=== PATIENT | female | born 1990 | race Caucasian/White ===

== ENCOUNTER → 2017-11-01 11:32 | Outpatient (CLI) | payer MEDICAID, SELFPAY ==
[2017-11-01 12:28] LABS: Absolute Lymphocyte Count 2.12 X10^3/ul (0.83-4.51); Absolute Neutrophil Count 7.5 X10^3/uL (2.0-7.7); Basophil# 0.02 X10^3/uL; Basophil% 0.2 % (0-1); Eosinophil# 0.18 X10^3/uL; Eosinophils% 1.8 % (0-5); Hematocrit 37.1 % (37-47); Hemoglobin 12.4 g/dl (12.0-15.0); Lymphocyte # 2.12 X10^3/ul (4.0); Lymphocyte % 20.9 % (19-41); Mean Corp Hgb Conc 33.4 g/gl (32-36); Mean Corpuscular Volume 86.7 fL (81-99); Mean Platelet Vol. 8.8 fl (6.2-12.0); Monocyte# 0.36 X10^3/uL; Monocyte% 3.6 % (0-10); Neutrophil # 7.45 X10^3/uL (2.7-7.7); Neutrophil % 73.4 % (47-70); Platelet Count 309 K/mm3 (150-450); RBC Distribution Width CV 14.2 % (11.6-14.6); RBC Distribution Width SD 44.4 fl (35.1-43.9); Red Blood Count 4.28 M/mm3 (4.2-5.4); White Blood Count 10.1 K/mm3 (4.4-11.0)
[2017-11-01 12:29] LABS: POSITIVE COUNT NO; POSITIVE DIFFERENTIAL NO; POSITIVE MORPHOLOGY NO
== END ==
PROVIDERS: Visit Provider Obstetrics & Gynecology
DX: O28.1 Abnormal biochemical finding on antenatal screening of mother (principal); Z3A.00 Weeks of gestation of pregnancy not specified
CPT/HCPCS: 36415; 85025

== ENCOUNTER → 2017-11-20 12:39 | Outpatient (CLI) | payer MEDICAID, SELFPAY ==
[2017-11-20 13:59] LABS: Anion Gap 9 (5-15); BUN 5 mg/dL (7-18); Calcium,Total 8.5 mg/dL (8.5-10.1); Chloride 104 mmol/L (98-107); Creatinine, Serum 0.55 mg/dL (0.55-1.02); EST Glomerular Filtration Rate 141 mL/min (>60); Est Glom Filt Rate - Afr Amer 170 mL/min (>60); Glucose 103 mg/dL (74-106); Potassium 3.5 mmol/L (3.5-5.1); Sodium Level 136 mmol/L (136-145); T4 Free Direct 0.74 ng/dL (0.76-1.46); Thyroid Stim Hormone (TSH) 1.56 uIU/mL (0.358-3.74)
[2017-11-20 14:21] LABS: Vitamin B12 668 pg/mL (211-911); Vitamin D,25 Hydroxy 19.8 ng/mL (19.95-100.01)
--- NOTE | 2017-11-20 15:04 | US_ITS ---
STUDY: SECOND AND THIRD TRIMESTER OBSTETRICAL ULTRASOUND REASON FOR EXAM: Female, 27 years old. Routine survey. LMP: July 05, 2017. TECHNIQUE: Transabdominal and Transvaginal PRIOR ULTRASOUND: None. FINDINGS: There is a single intrauterine fetus. The fetus is in a breech presentation. There is demonstrated cardiac activity with a heart rate of 142 bpm. There is a normal amniotic fluid volume. The largest amniotic fluid pocket measures 4.3 cm. The amniotic fluid index (TAMRA) is 13.8 cm. The placenta is posterior in location and is not low lying. There are Grade 1 placental changes. The cervix measures 3.8 cm in length. The adnexal regions are not visualized. BIOMETRY: BPD: 4.67 cm: 20 weeks, 1 days HC: 17.75 cm: 20 weeks, 2 days AC: 15.96 cm: 21 weeks, 1 days FL: 3.43 cm: 20 weeks, 6 days CI: 74% FL/BPD: 73% FL/HC: FL/AC: 21% HC/AC: 1.1 age by current US: 20 weeks, 5 days. MAGI by current US: April 04, 2018. Estimated weight: 381 grams, +/- 56 grams, 95 %. Age by LMP: 19 weeks, 5 days. MAGI by LMP: April 11, 2015. ANATOMY: Gender: Male Cranium: Normal lateral ventricles. Normal choroid plexus. Normal cerebellum. Normal cisterna magna. Normal face, nose and lips. Chest: Normal 4-chamber heart. Abdomen/Pelvis: Normal diaphragm. Normal stomach. Normal abdominal wall. Normal cord insertion. Normal 3 vessel cord. Normal kidneys. Normal bladder. Spine: Normal cervical spine. Normal thoracic spine. Normal lumbar spine. Normal sacrum. Extremities: Normal bilateral upper extremities. Normal bilateral lower extremities. US/OB Anatomy Scan IMPRESSION: Single live intrauterine gestation with a mean gestational age of 20 weeks and 5 days. Electronically Signed: Naun Peters MD at 11:20 EST Tel [phone], Service support ,
== END ==
PROVIDERS: Family Provider Internal Medicine; PCP Internal Medicine; Visit Provider Obstetrics & Gynecology
DX: O99.340 Other mental disorders complicating pregnancy, unspecified trimester (principal); F32.9 Major depressive disorder, single episode, unspecified; F41.9 Anxiety disorder, unspecified; Z3A.00 Weeks of gestation of pregnancy not specified
CPT/HCPCS: 36415; 76805; 80048; 82306; 82607; 84439; 84443

== ENCOUNTER 2017-11-21 09:00 | Outpatient (RCR) | payer MEDICAID, SELFPAY ==
--- NOTE | 2017-11-21 12:17 | BH.SGPN ---
Service Group Progress Note - Session Psychotherapy Session #1 Date Open:: 11/21/17 Time Started:: 09:04 Time Stopped:: 09:58 Targeted Problem #:: 1 Type of Group:: Process - 5 Participants Goal of Group:: The goal of today's group was to check-in with client's mood, stressors, and positives, review homework, and to introduce the topic of the day. Client Response/Progress/Benefit:: Client was new to the program and counselor introduced and explained dynamics of how process group would run. Client was willing to participate and spoke about what brought her to group was that her uncle completed suicide and her grandmother gave up after that, stopped taking care of herself, and is now on hospice. Client shared how she has been struggling leaving her house, wants to sleep all day, and lacks motivation. Client indicated her emotion as, nervous but now Im feeling kind of happy. Client benefitted from group by receiving support from peers. No progress noted due to it being clients first day in program. Continued treatment necessary to decrease depressive symptoms and increase daily functioning. Eye Contact:: Good Motor Activity:: Appropriate Appearance:: Casual Speech:: Appropriate Mood:: Euthymic, Anxious Affect:: Full Thoughts:: Linear, Logical, No evidence of hallucinations/delusions noted Staff Interventions:: Therapist used open-ended questions to elicit information about client's current stressors and mood. Therapist was supportive by using active listening and reflection. Psychotherapy Session #3 Date Open:: 11/21/17 Time Started:: 11:10 Time Stopped:: 12:10 Targeted Problem #:: 1 Type of Group:: Functional Skills Development - 6 Participants Goal of Group:: To identify what stressors have control over and what stressors have no control over. Client Response/Progress/Benefit:: Client was alert, attentive, and willing to engage. Client was an active participant in group today. Client participated in group activity designed to elicit stress from client and determine how client manages stressful situations. Client collaborated with peers to successfully complete group activity and was able to identify her current coping strategies to manage stress as, sleeping to avoid everything but the stressor is still there. Client stated, It can be scary to start over because people always tell us where we should be instead of being there when we needed them. Client benefitted from identifying stressors and ways to reduce their impact as well as identifying her need to, alter my time management and avoid toxic people. Progress noted in clients awareness and insight of how her current management skills are impacting her. Continued treatment necessary to reduce depressive symptoms and increase daily functioning. Eye Contact:: Good Motor Activity:: Appropriate Appearance:: Casual Speech:: Appropriate Mood:: Euthymic Affect:: Full Thoughts:: Linear, Logical, No evidence of hallucinations/delusions noted Staff Interventions:: Therapist facilitated discussion about control versus no control and helped group members connect the concept to stressors. Therapist led an activity in which group members differentiated which stressors are in their control and which are out of their control. Therapist processed with group if the stressors were in the right category. Therapist led discussion about importance of putting forth more energy on those stressors they can control.
--- NOTE | 2017-11-21 14:51 | BH.SGPN_ITS ---
Service Group Progress Note - Session Psychotherapy Session #2 Date Open:: 11/21/17 Time Started:: 10:05 Time Stopped:: 10:57 Targeted Problem #:: 1 Type of Group:: Illness Management Goal of Group:: To increase understanding of what stress is, identify current life stressors, and connect impact stressors have on mental health. Client Response/Progress/Benefit:: Client contributed positively discussion and listened attentively to others. Client appeared to connect with others comments about the impact ones negative thoughts can have on stress. Shared about how overwhelmed and stressed can negatively impact ones body and mental health. Identified her current stressors to include: Loss of her uncle recently by suicide, grandma's declining health, taking care of her young child , being , money issues, try to get a job while , no motivation, depression, and her medications are no longer working. Client identified depression to be most impactful stressor on her currently because it is hard to do much when feeling sad. Client seemed to benefit from increasing awareness of her current stressors as well as identifying how her typical reaction to stress can be negatively impactful on her. Eye Contact:: Good Motor Activity:: Appropriate Appearance:: Casual Speech:: Appropriate Mood:: Euthymic, Anxious Affect:: Constricted Thoughts:: Linear, Logical, No evidence of hallucinations/delusions noted Staff Interventions:: Therapist facilitated discussion about stress. Therapist facilitated an activity in which group members were asked to identify various stressors they have in their life currently. Therapist instructed group members to indicate if certain stressors were larger than others. Therapist led processing of each members stress jar and helped them connect impact the stress has on their mental health.
--- NOTE | 2017-11-23 11:37 | BH.SGPN ---
Service Group Progress Note - Session Psychotherapy Session #1 Date Open:: 11/23/17 - 5 participants Time Started:: 09:07 Time Stopped:: 10:10 Targeted Problem #:: 1 Type of Group:: Process Goal of Group:: The goal of today's group was to check-in with client's mood, stressors, and positives, review homework and introduce topic for the day. Client Response/Progress/Benefit:: Client responded well to session, active participant. Client reports feeling irritable today as client had bad dreams last night that I can't shake. Client reported she isolated and laid at home yesterday as client was feeling depressed and had low motivation. Client shared she tends to focus on the negatives which reaffirms negative thoughts and contributes to isolation. With therapist elicitation, client recognized positives from yesterday such as making dinner and going to the library with her daughter. Client shared she can try to improve her mood today by taking her daughter to the library again. Client stated, I know that will be good for her and for me. Client appeared to benefit from identifying positives and creating a plan to reduce isolation today. Client progressing as shown by her insight to warning signs and maintenance cycles, but can continue to benefit from implementing healthy coping skills to promote socialization. Eye Contact:: Good Motor Activity:: Appropriate Appearance:: Disheveled Speech:: Appropriate Mood:: Dysthymic Affect:: Congruent Thoughts:: Linear, No evidence of hallucinations/delusions noted Staff Interventions:: Therapist used open-ended questions to elicit information about client's current stressors and mood state. Therapist was supportive by using active listening and reflection.
--- NOTE | 2017-11-24 11:53 | BH.NA ---
Physical Data - Vital Signs Pulse Rate: 84 Respiratory Rate: 14 Blood Pressure: 109/63 - Height/Weight Height: 1.6 m Nutritional History - Appetite Nutritional Instructions:: If client shows signs of a swallowing problem, weight change of 10 pounds or more in the last month, or is on a diabetic diet, the physician will review and request a dietitian consult, as appropriate. All unintentional weight loss will be referred to the physician for decision on need for dietitian consult. Have you noticed a change in your eating habits lately?: No Functional Assessment - Sleep Pattern Describe any problems with sleeping: She notes that she has frequent nightmares that adversely effect her sleep. - Activities Motor Activity:: Functional Sensory/Communication Assess - Hearing Problems Do you have any hearing problems?: Adequate - Communication Problems Do you have difficulty understanding what people are saying?: No Do you have trouble putting your thoughts into words or expressing what you want to say?: No Do people ever have trouble understanding what you say?: No What is your primary language?: Persian Learning Assessment - Learning Barriers Learning Barriers:: Ready to learn Medical Problems/History - Female Reproductive Do you think you may be ?: Yes - 21 weeks Number of pregnancies:: 2 Number of children:: 1 Have you reached menopause?: No Do you have any history of breast disease?: No - Family History Family History: Family History (Last Updated 11/20/17 @ 09:57 by Geovanna Velazquez) Mother Endometrial cyst of ovary Grandmother Anxiety and depression Father Anxiety and depression Cancer Uncle Anxiety and depression Grandmother Cancer Diabetes Substance Abuse - Substance Abuse Please describe substance abuse in the last 30 days:: Client notes that she was using ETOH daily (1-2 drinks) prior to her currently , but has since quit. She denies a tobacco and illicit substance use history. Intake of 1-2 caffienated beverages daily. Mental Status Summary - Mental Status Significant Findings/Observations on Appearance and Mood:: Client is A&Ox4, makes good eye contact, and is cooperative with interview. She has appropriate hygiene and is casually dressed and groomed. Speech is clear, and of normal rate and volume. Mild depression. Appropriate and full affect. Logical associations. Normal process. She denies SI, HI, and hallucinations. No symptoms of delusions. Critical judgement and true insight. Suicide Assessment - Suicidal Ideation Are you currently or have you been suicidal in the past?: No Suicidal Intentional Rating Scale (SIRS): No suicidal thoughts (past or present) Physician Notification: If Active suicidal thoughts/Will not contract for safety is checked, contact physician and document in the Physician Notification section below. Assault History/Potential - History of Assault Do you have a history of assaulting someone?: No Physician Notification: If yes, notify physician and document notification date and time below. Fall Risk Assessment - Age Age: Less than 60 - Mental Status Mental Status: Willing & able to ask for assistance when needed - Physical Status Physical Status: No problems - Impairments Impairments: None - Elimination Elimination: Continent AND independent - Gait or Balance Gait or Balance: Walks independently - Hx of Falls History of falls in the past 6 months: No known history - Medications/Substances Medications/substances used within the past 24 hours or ordered to administer: None of the medications/substances list above - Total Score Total Points:: 0 RN Summary of Impressions - Impressions Recommendations: Include psychiatric and medical issues, treatment planning recommendations, and discharge planning needs. Impressions: Psychiatric Issues: depression - Level of Care How do the client's current symptoms and functional deficits support need for this level of care?: Client notes that she has been having increased depressive symptoms since October 2017, following her uncle's completion of suicide. She notes that she has been sleeping more as an avoidance tactic, increased crying, and lack of motivation. She has found counseling and medication ineffective. She is greifing the loss of her uncle and her grandmother has just entered Hospice care. As she is , she is feeling especially overwhelmed, and wishes to deal with all of the stressors in a way that is most healthy for her and her baby.
--- NOTE | 2017-11-24 12:19 | BH.SGPN_ITS ---
Service Group Progress Note - Session Psychotherapy Session #1 Date Open:: 11/21/17 Time Started:: 09:04 Time Stopped:: 09:58 Targeted Problem #:: 1 Type of Group:: Process - 5 Participants Goal of Group:: The goal of today's group was to check-in with client's mood, stressors, and positives, review homework, and to introduce the topic of the day. Client Response/Progress/Benefit:: Client was new to the program and counselor introduced and explained dynamics of how process group would run. Client was willing to participate and spoke about what brought her to group was that her uncle completed suicide and her grandmother gave up after that, stopped taking care of herself, and is now on hospice. Client shared how she has been struggling leaving her house, wants to sleep all day, and lacks motivation. Client indicated her emotion as, ?nervous but now I?m feeling kind of happy.? Client benefitted from group by receiving support from peers. No progress noted due to it being client?s first day in program. Continued treatment necessary to decrease depressive symptoms and increase daily functioning. Eye Contact:: Good Motor Activity:: Appropriate Appearance:: Casual Speech:: Appropriate Mood:: Euthymic, Anxious Affect:: Full Thoughts:: Linear, Logical, No evidence of hallucinations/delusions noted Staff Interventions:: Therapist used open-ended questions to elicit information about client's current stressors and mood. Therapist was supportive by using active listening and reflection. Psychotherapy Session #3 Date Open:: 11/21/17 Time Started:: 11:10 Time Stopped:: 12:10 Targeted Problem #:: 1 Type of Group:: Functional Skills Development - 6 Participants Goal of Group:: To identify what stressors have control over and what stressors have no control over. Client Response/Progress/Benefit:: Client was alert, attentive, and willing to engage. Client was an active participant in group today. Client participated in group activity designed to elicit stress from client and determine how client manages stressful situations. Client collaborated with peers to successfully complete group activity and was able to identify her current coping strategies to manage stress as, ?sleeping to avoid everything but the stressor is still there.? Client stated, ?It can be scary to start over because people always tell us where we should be instead of being there when we needed them.? Client benefitted from identifying stressors and ways to reduce their impact as well as identifying her need to, ?alter my time management and avoid toxic people.? Progress noted in client?s awareness and insight of how her current management skills are impacting her. Continued treatment necessary to reduce depressive symptoms and increase daily functioning. Eye Contact:: Good Motor Activity:: Appropriate Appearance:: Casual Speech:: Appropriate Mood:: Euthymic Affect:: Full Thoughts:: Linear, Logical, No evidence of hallucinations/delusions noted Staff Interventions:: Therapist facilitated discussion about control versus no control and helped group members connect the concept to stressors. Therapist led an activity in which group members differentiated which stressors are in their control and which are out of their control. Therapist processed with group if the stressors were in the right category. Therapist led discussion about importance of putting forth more energy on those stressors they can control.
--- NOTE | 2017-11-24 12:46 | PCM.HP.BLA ---
History and Physical Identifying information Patient is a 27-year-old single female 20 weeks who presents to the [facility] with chief complaint of I need to be more proactive with depression. I am . History has been obtained per interview with patient, discussion with staff, review of chart and records. Case discussed with treatment team. History of present illness Patient is a 27-year-old single female who presents to the [facility] for evaluation and treatment of depression and anxiety. She reports a long-standing history of depression since her teenage years. Her symptoms have been worse since October after her uncle completed suicide. She had been on Celexa 20 mg daily since August 2017 and it was increased to 40 mg daily in October. Her depression has again worsened in the last week and a half due to her grandmother's health decline and her grandmother being placed in hospice. Her primary care physician consulted with her FOUR SLIDE MACHINE OPERATOR and has recommended reduction of Celexa 20 mg and start of Effexor 37.5 mg. Patient reports her current is unplanned. She is 21 weeks . EDC April 11. She reports she is excepting now of the . Baby's father is not involved. She endorses depression with a dark mood anhedonia, decreased energy, difficulty concentrating. She has increased urges to sleep and sleeping 8-10 hours per night and taking 2-3 hour naps per day. She has ruminative anxiety about anything I cannot control. She denies panic attack she denies obsessions or compulsions. Appetite is normal. She has a history of restricted eating for 2-3 years in high school at which time she lost weight. She is 5 foot 3. Her lowest weight in high school was 94 pounds. Her current normal non adult weight is 135-145 pounds. She reports that her eating is currently normal. She denies suicidal or homicidal ideation. She denies symptoms consistent with psychosis. She denies symptoms consistent with asher or bipolar disorder. Past psychiatric history Patient was diagnosed with depression at age 14. She had depression in 2013 after the of her first daughter. She participated in a [facility] study for 1 year for depression and bipolar disorder. It was determined that she had unipolar depression. She took Zoloft for 1 year but notes he quit working in April 2017. She took Remeron as part of the trial but notes that it made her tired. Does not currently have a psychiatrist or counselor. Substance use history Reports consuming 1-2 drinks per day prior to no alcohol since . Denies smoking cigarettes or use of illicit drugs. Past medical history EDC April 11, 2018. Genital herpes Denies seizure or head injury Vitamin D deficiency. Allergies dicloxacillin Current medications Celexa 20 mg daily. Will start Effexor X are 37.5 mg daily on Monday. At the scene Protonix Vitamin D vitamins Family medical psychiatric history Maternal grandmother has depression and dementia Father has depression Develop mental social history Patient was born in [place] and lived [place] until age 8 when she moved to [place]. Parents when she was age 5. She has a biologic younger brother who lives with her father. She has 2 half sisters that live with their mother. She lives with her mother as a only child. She denies physical abuse growing up. She obtained a bachelor's in biology in 2013 from [employer]. 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 Has a 3-year-old daughter. Father is not involved. Lives with mother grandmother and 3-year-old daughter. Currently . Baby's father not involved. Legal history Age 18 charged with [employer] for vandalism of a car after she threw mashed potatoes on the car. mental status exam This is a 27-year-old female who appears her stated age. She is alert and oriented in no acute distress. Casually dressed and groomed. Ambulatory with normal gait and station. Appropriate hygiene. Cooperative with the interview. Good eye contact. No psychomotor agitation or retardation. Mood depressed. Affect congruent. Speech clear and of regular rate and volume. Language fluent. Thought process organized. Associations logical. Thought content significant for ruminative anxiety and themes of depression and grief. No suicidal or homicidal ideation related or detected. No evidence of psychosis related to detected. Immediate recent and remote memory grossly intact. Attention and concentration are good. Estimated intelligence and fund of knowledge average. Judgment and insight are fair to good. Labs and testing Recent vitamin D in 19 Further lab work will be obtained as needed Diagnosis Major depressive disorder recurrent moderate Anxiety unspecified Remote history disordered eating 21 weeks -EDC April 11, 2018 Plan Admit to [facility] as the structured setting is necessary to maintain gains and prevent decompensation. Risks benefits alternatives of medications discussed with patient. Patient acknowledges understanding. She will reduce Celexa to 20 mg daily and start Effexor 37.5 mg daily -discussed risks of antidepressant use in patient acknowledges understanding. She agrees to continue consultation with [employer]IDE MACHINE OPERATOR regarding use of antidepressant medications. Continue vitamin D supplement. Encouraged to establish with outpatient psychiatric providers for when IOP complete. Patient acknowledges understanding and is in agreement with plan. She feels able to maintain safety. She agrees to seek help or emergency care feeling unsafe to self or others.
--- NOTE | 2017-11-24 13:00 | HP.PCM_ITS ---
History and Physical Identifying information Patient is a 27-year-old single female 20 weeks who presents to the [facility] with chief complaint of I need to be more proactive with depression. I am . History has been obtained per interview with patient, discussion with staff, review of chart and records. Case discussed with treatment team. History of present illness Patient is a 27-year-old single female who presents to the [facility] for evaluation and treatment of depression and anxiety. She reports a long- standing history of depression since her teenage years. Her symptoms have been worse since October after her uncle completed suicide. She had been on Celexa 20 mg daily since August 2017 and it was increased to 40 mg daily in October. Her depression has again worsened in the last week and a half due to her grandmother's health decline and her grandmother being placed in hospice. Her primary care physician consulted with her [facility] [facility] and has recommended reduction of Celexa 20 mg and start of Effexor 37.5 mg. Patient reports her current is unplanned. She is 21 weeks . EDC April 11. She reports she is excepting now of the . Baby's father is not involved. She endorses depression with a dark mood anhedonia, decreased energy, difficulty concentrating. She has increased urges to sleep and sleeping 8-10 hours per night and taking 2-3 hour naps per day. She has ruminative anxiety about anything I cannot control. She denies panic attack she denies obsessions or compulsions. Appetite is normal. She has a history of restricted eating for 2- 3 years in high school at which time she lost weight. She is 5 foot 3. Her lowest weight in high school was 94 pounds. Her current normal non adult weight is 135-145 pounds. She reports that her eating is currently normal. She denies suicidal or homicidal ideation. She denies symptoms consistent with psychosis. She denies symptoms consistent with asher or bipolar disorder. Past psychiatric history Patient was diagnosed with depression at age 14. She had depression in 2013 after the of her first daughter. She participated in a [facility] study for 1 year for depression and bipolar disorder. It was determined that she had unipolar depression. She took Zoloft for 1 year but notes he quit working in April 2017. She took Remeron as part of the trial but notes that it made her tired. Does not currently have a psychiatrist or counselor. Substance use history Reports consuming 1-2 drinks per day prior to no alcohol since . Denies smoking cigarettes or use of illicit drugs. Past medical history EDC April 11, 2018. Genital herpes Denies seizure or head injury Vitamin D deficiency. Allergies dicloxacillin Current medications Celexa 20 mg daily. Will start Effexor X are 37.5 mg daily on Monday. At the scene Protonix Vitamin D vitamins Family medical psychiatric history Maternal grandmother has depression and dementia Father has depression Develop mental social history Patient was born in [place] and lived in [place] in [place] until age 8 when she moved to [place]. Parents when she was age 5. She has a biologic younger brother who lives with her father. She has 2 half sisters that live with their mother. She lives with her mother as a only child. She denies physical abuse growing up. She obtained a bachelor's in biology in 2013 from [employer]. 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 Has a 3-year-old daughter. Father is not involved. Lives with mother grandmother and 3-year-old daughter. Currently . Baby's father not involved. Legal history Age 18 charged with [employer] for vandalism of a car after she threw mashed potatoes on the car. mental status exam This is a 27-year-old female who appears her stated age. She is alert and oriented in no acute distress. Casually dressed and groomed. Ambulatory with normal gait and station. Appropriate hygiene. Cooperative with the interview. Good eye contact. No psychomotor agitation or retardation. Mood depressed. Affect congruent. Speech clear and of regular rate and volume. Language fluent. Thought process organized. Associations logical. Thought content significant for ruminative anxiety and themes of depression and grief. No suicidal or homicidal ideation related or detected. No evidence of psychosis related to detected. Immediate recent and remote memory grossly intact. Attention and concentration are good. Estimated intelligence and fund of knowledge average. Judgment and insight are fair to good. Labs and testing Recent vitamin D in 19 Further lab work will be obtained as needed Diagnosis Major depressive disorder recurrent moderate Anxiety unspecified Remote history disordered eating 21 weeks -EDC April 11, 2018 Plan Admit to [facility] as the structured setting is necessary to maintain gains and prevent decompensation. Risks benefits alternatives of medications discussed with patient. Patient acknowledges understanding. She will reduce Celexa to 20 mg daily and start Effexor 37.5 mg daily -discussed risks of antidepressant use in patient acknowledges understanding. She agrees to continue consultation with [employer]OPER regarding use of antidepressant medications. Continue vitamin D supplement. Encouraged to establish with outpatient psychiatric providers for when IOP complete. Patient acknowledges understanding and is in agreement with plan. She feels able to maintain safety. She agrees to seek help or emergency care feeling unsafe to self or others.
--- NOTE | 2017-11-24 13:00 | BH.DR.ITP ---
Initial Treatment Plan - Patient Information Visit Information: ADMISSION DATE: EXPECTED LOS: 4-6 weeks Diagnoses:: Major depressive disorder recurrent moderate F 33.1 - Problems/Symptoms Problem #1:: Depression Symptom:: Sad mood, anhedonia, difficulty concentrating, decreased energy, increased sleep Problem #2:: Anxiety Symptom:: Rumination
--- NOTE | 2017-11-24 14:45 | BH.SGPN ---
Service Group Progress Note - Session Psychotherapy Session #2 Date Open:: 11/24/17 Time Started:: 10:15 Time Stopped:: 11:10 Targeted Problem #:: 1 Type of Group:: Illness Management - 5 group members Goal of Group:: The goal of group was to increase understanding of goals and goal setting and practice a method of goal setting. Client Response/Progress/Benefit:: Client contributed to discussion and listened attentively to others. Client connected with others comments about the quote. She reported goals are beneficial because it gives you a purpose and direction. Recognizes when she does not set goals she tends to stay stuck. Seemed to benefit from rehearsing settings smart goals during activity. Able to connect the importance of being able to set realistic attainable goals as well as recognizing when he might need to reevaluate your goal to ensure that it is attainable. Eye Contact:: Good Motor Activity:: Appropriate Appearance:: Disheveled Speech:: Appropriate Mood:: Anxious, Dysthymic Affect:: Congruent Thoughts:: Linear, Logical, No evidence of hallucinations/delusions noted Staff Interventions:: Therapist facilitated group discussion about goals and goal setting. Therapist taught group the acronym SMART (Specific, Measurable, Achievable, Realistic, Timely) as a tool to help with goal setting. Therapist led the group in an activity to be used as a method of practicing goal setting. Therapist guided the group through the SMART acronym as group was participating in activity. Therapist assisted group members with connecting the importance of making small, realistic goals.
--- NOTE | 2017-11-24 15:00 | BH.SGPN ---
Service Group Progress Note - Session Psychotherapy Session #1 Date Open:: 11/24/17 Time Started:: 09:05 Time Stopped:: 10:00 Type of Group:: Process - 6 group members Goal of Group:: The goal of today's group was to check-in with client's mood, stressors, and positives, review homework and introduce topic for the day. Client Response/Progress/Benefit:: Pt was an active participant in group discussion. Emotion for today is pre-occuppied Shared with the group some positives yesterday which included making in through shopping without crying. States that she has been so overwhelmed with stressors lately it has been difficult to manage crying spells. Discussed that her GMA's medical issues are worsening and Hospive was in her house today while she is in group. Tearful at times. Group provided support. Limited progress noted however some mood improvement as evidence by decrease in crying spells. Continued treatment to maintain safety, stablize mood, and prevent further decompensation. Eye Contact:: Good Motor Activity:: Appropriate Appearance:: Disheveled Speech:: Appropriate Mood:: Anxious, Depressed Affect:: Congruent Thoughts:: Linear, Logical, No evidence of hallucinations/delusions noted Staff Interventions:: Therapist used open-ended questions to elicit information about client's current stressors and mood state. Therapist was supportive by using active listening and reflection.
--- NOTE | 2017-11-27 15:19 | BH.SGPN ---
Service Group Progress Note - Session Psychotherapy Session #1 Date Open:: 18 - 7 group members Time Started:: 09:05 Time Stopped:: 10:15 Targeted Problem #:: 1 Type of Group:: Process Goal of Group:: The goal of today's group was to check-in with clients and review homework from previous group session. Client Response/Progress/Benefit:: Client responded well to session, providing supportive statements to peers. Client reports feeling content today as client shared I don't feel upset, but I'm not happy either. Client stated her weekend was a mixture of positives and negatives. Client shared she continues to grieve the loss of her uncle, but reported she had a good time with family as we talked about the good times. Client reported her daughter helps client overcome challenging moments and brings a source of abraham to client's life. Client appeared to benefit from reflecting on positive ways she coped with grief over the weekend. Client progressing as shown by her report of generalization of healthy coping skills, but can continue to benefit from processing complex emotions. Eye Contact:: Good Motor Activity:: Appropriate Appearance:: Disheveled Speech:: Appropriate Mood:: Dysthymic Affect:: Constricted Thoughts:: Linear, No evidence of hallucinations/delusions noted Staff Interventions:: Therapist inquired about each group member?s previous night and current mood state. Therapist reviewed the group member?s homework from previous group session with the group, asking open ended questions to get more information
--- NOTE | 2017-11-28 12:23 | BH.MDN ---
Multi-Disciplinary Note - Note 30-min Individual Date: 11/28/17
--- NOTE | 2017-11-28 12:34 | BH.SGPN ---
Service Group Progress Note - Session Psychotherapy Session #1 Date Open:: 11/28/17 Time Started:: 09:08 Time Stopped:: 10:00 Targeted Problem #:: 1 Type of Group:: Process - 7 Participants Goal of Group:: The goal of today's group was to check-in with client's mood, stressors, and positives, review homework, and to introduce the topic of the day. Client Response/Progress/Benefit:: Client entered session alert, attentive, and willing to engage. Client shared how yesterday was a good day and shared how she was feeling overwhelmed with her grandmother and coming to the conclusion that, Im the most important person in my life. I need to take care of me. Client indicated her emotion as hopeful and benefitted from receiving support from peers. Continued treatment necessary to decrease depressive symptoms. Eye Contact:: Good Motor Activity:: Appropriate Appearance:: Casual Speech:: Appropriate Mood:: Euthymic Affect:: Full Thoughts:: Linear, Logical, No evidence of hallucinations/delusions noted Staff Interventions:: Therapist used open-ended questions to elicit information about client's current stressors and mood. Therapist was supportive by using active listening and reflection. Psychotherapy Session #3 Date Open:: 11/28/17 Time Started:: 11:15 Time Stopped:: 12:05 Targeted Problem #:: 1 Type of Group:: Functional Skills Development - 9 Participants Goal of Group:: To identify ways of defeating cognitive distortions and rehearse defeating the identified cognitive distortion. Client Response/Progress/Benefit:: Client was again alert, attentive, and willing to engage. Client participated in small group activity in which she worked with peers and practiced reframing negative thoughts with more positive thoughts. Client was able to reframe her own negative thought of, its my fault my daughter throws a tantrum. She reports that these thoughts make her feel, guilty and irritable, and identifies the cognitive distortions that are associated with this thinking as, personalization and disqualifying the positives. Clients positive reframe for this is, Shes 3 years old and she will do this and it isnt my fault. Client benefitted from the discussion of cognitive distortions. Progress noted in clients ability to identify cognitive distortions. Continued treatment necessary to reduce depressive symptoms. Eye Contact:: Good Motor Activity:: Appropriate Appearance:: Casual Speech:: Appropriate Mood:: Euthymic Affect:: Full Thoughts:: Linear, Logical, No evidence of hallucinations/delusions noted Staff Interventions:: Therapist provided group members with a handout to use as an aid when trying to defeat their unhelpful thinking. Therapist provided support by clarifying activities and providing feedback. Therapist facilitated group in the role playing of defeating cognitive distortions.
--- NOTE | 2017-11-28 16:01 | BH.PSA ---
Development & Family of Origin - Family History Family History: Family History (Last Reviewed 02/02/18 @ 13:49 by Iqra Sosa) Mother Endometrial cyst of ovary Grandmother Anxiety and depression Father Anxiety and depression Cancer Uncle Anxiety and depression Grandmother Cancer Diabetes
--- NOTE | 2017-11-28 16:06 | BH.SGPN ---
Service Group Progress Note - Session Psychotherapy Session #2 Date Open:: 11/28/17 - group members Time Started:: 10:11 Time Stopped:: 11:10 Targeted Problem #:: 1 Type of Group:: Illness Management Goal of Group:: To increase understanding of cognitive distortions, identify examples of when have had unhelpful thinking, and increase awareness of the impact cognitive distortions have on mental health. Client Response/Progress/Benefit:: Client responded well to session, active participant, providing supportive statements to peers. Client connected with the quote, stating we can either make something positive or negative with our thoughts. Client helped group process negative automatic thoughts and the different types of cognitive distortions while providing insight to how ones thoughts, emotions, and behaviors are interconnected. Client identified different types of cognitive distortions that she uses such as shoulding personalizing, and mental filtering. Client stated, Cathy been getting better with not personalizing as much especially with my daughter. Client appeared to benefit from increasing awareness of cognitive distortions and connecting how the distortions impact overall mental well-being. Client seems to be progressing as shown by her report of increased success with challenging negative thoughts, but can continue to benefit from daily implementation. Eye Contact:: Good Motor Activity:: Appropriate Appearance:: Disheveled Speech:: Appropriate Mood:: Euthymic, Depressed Affect:: Full Thoughts:: Linear, No evidence of hallucinations/delusions noted Staff Interventions:: Therapist utilized a quote as a tool to introduce topic of the day. Therapist provided group members with a handout that listed ten cognitive distortions with examples. Therapist facilitated group discussion about cognitive distortions. Therapist led group members in an activity to help them understand the impact cognitive distortions can have on emotions and behavior. Therapist provided support by using active listening and providing feedback.
--- NOTE | 2017-11-29 12:15 | BH.SGPN_ITS ---
Service Group Progress Note - Session Psychotherapy Session #2 Date Open:: 11/28/17 - group members Time Started:: 10:11 Time Stopped:: 11:10 Targeted Problem #:: 1 Type of Group:: Illness Management Goal of Group:: To increase understanding of cognitive distortions, identify examples of when have had unhelpful thinking, and increase awareness of the impact cognitive distortions have on mental health. Client Response/Progress/Benefit:: Client responded well to session, active participant, providing supportive statements to peers. Client connected with the quote, stating ?we can either make something positive or negative with our thoughts.? Client helped group process negative automatic thoughts and the different types of cognitive distortions while providing insight to how one?s thoughts, emotions, and behaviors are interconnected. Client identified different types of cognitive distortions that she uses such as ?shoulding? personalizing, and mental filtering. Client stated, ?I?ve been getting better with not personalizing as much especially with my daughter.? Client appeared to benefit from increasing awareness of cognitive distortions and connecting how the distortions impact overall mental well-being. Client seems to be progressing as shown by her report of increased success with challenging negative thoughts, but can continue to benefit from daily implementation. Eye Contact:: Good Motor Activity:: Appropriate Appearance:: Disheveled Speech:: Appropriate Mood:: Euthymic, Depressed Affect:: Full Thoughts:: Linear, No evidence of hallucinations/delusions noted Staff Interventions:: Therapist utilized a quote as a tool to introduce topic of the day. Therapist provided group members with a handout that listed ten cognitive distortions with examples. Therapist facilitated group discussion about cognitive distortions. Therapist led group members in an activity to help them understand the impact cognitive distortions can have on emotions and behavior. Therapist provided support by using active listening and providing feedback.
--- NOTE | 2017-12-04 12:36 | BH.SGPN_ITS ---
Service Group Progress Note - Session Psychotherapy Session #1 Date Open:: 11/28/17 Time Started:: 09:08 Time Stopped:: 10:00 Targeted Problem #:: 1 Type of Group:: Process - 7 Participants Goal of Group:: The goal of today's group was to check-in with client's mood, stressors, and positives, review homework, and to introduce the topic of the day. Client Response/Progress/Benefit:: Client entered session alert, attentive, and willing to engage. Client shared how yesterday was a good day and shared how she was feeling overwhelmed with her grandmother and coming to the conclusion that, ?I?m the most important person in my life. I need to take care of me.? Client indicated her emotion as hopeful and benefitted from receiving support from peers. Continued treatment necessary to decrease depressive symptoms. Eye Contact:: Good Motor Activity:: Appropriate Appearance:: Casual Speech:: Appropriate Mood:: Euthymic Affect:: Full Thoughts:: Linear, Logical, No evidence of hallucinations/delusions noted Staff Interventions:: Therapist used open-ended questions to elicit information about client's current stressors and mood. Therapist was supportive by using active listening and reflection. Psychotherapy Session #3 Date Open:: 11/28/17 Time Started:: 11:15 Time Stopped:: 12:05 Targeted Problem #:: 1 Type of Group:: Functional Skills Development - 9 Participants Goal of Group:: To identify ways of defeating cognitive distortions and rehearse defeating the identified cognitive distortion. Client Response/Progress/Benefit:: Client was again alert, attentive, and willing to engage. Client participated in small group activity in which she worked with peers and practiced reframing negative thoughts with more positive thoughts. Client was able to reframe her own negative thought of, ?it?s my fault my daughter throws a tantrum.? She reports that these thoughts make her feel, ?guilty and irritable,? and identifies the cognitive distortions that are associated with this thinking as, ?personalization and disqualifying the positives.? Client?s positive reframe for this is, ?She?s 3 years old and she will do this and it isn?t my fault.? Client benefitted from the discussion of cognitive distortions. Progress noted in client?s ability to identify cognitive distortions. Continued treatment necessary to reduce depressive symptoms. Eye Contact:: Good Motor Activity:: Appropriate Appearance:: Casual Speech:: Appropriate Mood:: Euthymic Affect:: Full Thoughts:: Linear, Logical, No evidence of hallucinations/delusions noted Staff Interventions:: Therapist provided group members with a handout to use as an aid when trying to defeat their unhelpful thinking. Therapist provided support by clarifying activities and providing feedback. Therapist facilitated group in the role playing of defeating cognitive distortions.
[2017-12-08 12:38] VITALS: BP 109/63; PULSE 84; RESP 14
--- NOTE | 2017-12-25 10:37 | BH.MTP_ITS ---
Master Treatment Plan - Patient Information Program Physician:: Dr. Garcia Primary Therapist:: Lesly Muniz [facility] - Psychiatric Diagnoses Psychiatric Diagnoses:: Major depressive disorder recurrent moderate. Anxiety unspecified. Remote history disordered eating Diagnosis Code(s):: F 33.1 - Estimated LOS Estimated LOS (in weeks):: 6 Problem/Goal #1 - Problem/Goal #1 Stated Goal:: Client will reduce depressive symptoms, isolation, and anhedonia due to Major Depressive Disorder through Intensive Outpatient Program. Description of Barriers: Pt's uncle recently by suicide and pt's grandma currently on hospice contribute to increased depressive symptoms. Pt's increased sleeping, avoidance of issues, grief, distorted thought patterns, and grief triggers are barriers to treatment progress. Functional Impact: Pt currently and reached out to help because recognized her depressive symptoms were impacting her ability to function daily because pt would sleep over 10 hours a day and not want to do anything else. Pt able to see her depression was not only impacting her, but impacting her unborn baby. Pt struggling to complete ADL's and not feeling stable enough to seek employment. Goal Relevant Strengths/Supports: Pt intelligent, motivated, and verbalizes desire to get better. Pt's mother is a strong support for pt. - Objectives Objective #1 Stated Objective: Client will get out of the house at least one time per day and incorporate 2-4 activities she used to enjoy back into her weekly schedule. Interventions: Therapist will help client with establishing daily goals that will get client to leave house daily. Therapist will also explore what activities client used to enjoy doing and slowly incorporate those activities back into client's weekly routine. Will address barriers to getting out of house or not engaging in extracurricular activities. Discharge Criteria: Client will have achieved this goal when is leaving house at least once per day and engaging in at least 2 activities she used to enjoy. Target Date: 01/01/18 Review Date: 12/19/17 Objective #2 Stated Objective: Client will learn and utilize 2-3 healthy coping strategies to manage depressive symptoms. Interventions: Therapist will assist client in learning internal coping strategies to manage depressive symptoms, along with helping client identify triggers. Discharge Criteria: Client will have achieved this goal when can verbalize and has practiced at least 2 healthy coping strategies. Target Date: 01/01/18 Review Date: 12/19/17 Problem/Goal #2 - Problem/Goal #2 Stated Goal:: Reduce overall frequency, intensity, and duration of the anxiety so that daily functioning is not impaired. Description of Barriers: Pt's uncle recently by suicide and pt's grandma currently on hospice contribute to increased depressive symptoms. Pt's increased sleeping, avoidance of issues, grief, distorted thought patterns, and grief triggers are barriers to treatment progress. Functional Impact: Pt currently and reached out to help because recognized her depressive symptoms were impacting her ability to function daily because pt would sleep over 10 hours a day and not want to do anything else. Pt able to see her depression was not only impacting her, but impacting her unborn baby. Pt struggling to complete ADL's and not feeling stable enough to seek employment. Goal Relevant Strengths/Supports: Pt intelligent, motivated, and verbalizes desire to get better. Pt's mother is a strong support for pt. - Objectives Objective #1 Stated Objective: Client will learn and implement 2-3 calming skills to reduce overall anxiety and manage anxiety symptoms. Interventions: Therapist will teach client calming/relaxation skills and assign client homework which practices relaxation skills daily. Discharge Criteria: Client will have achieved this goal when can verbalize at least 2 calming skills and implement those skills. Target Date: 01/02/18 Review Date: 12/19/17
--- NOTE | 2017-12-25 11:02 | BH.TPR ---
Treatment Plan Review Date of Admission:: 11/21/17 Date of Treatment Plan Review:: 12/19/17 Problem #1 Problem Name:: Depression Problem #2 Problem Name:: Anxiety
== END 2017-11-29 23:59 ==
LOC: BHIOP 09:00
PROVIDERS: Family Provider Internal Medicine; PCP Internal Medicine; Visit Provider Psychiatry & Neurology Psychiatry
DX: O99.342 Other mental disorders complicating pregnancy, second trimester (principal); F33.2 Major depressive disorder, recurrent severe without psychotic features; F41.9 Anxiety disorder, unspecified; Z3A.21 21 weeks gestation of pregnancy
CPT/HCPCS: 99204; H0035; H2012; H2020; T1002; 90832

== ENCOUNTER 2017-11-30 09:00 | Outpatient (RCR) | payer MEDICAID, SELFPAY ==
--- NOTE | 2017-11-30 14:24 | BH.MDN ---
Multi-Disciplinary Note - Note 30-min Individual Date: 11/30/17
--- NOTE | 2017-11-30 16:01 | BH.SGPN ---
Service Group Progress Note - Session Psychotherapy Session #1 Date Open:: 11/30/17 Time Started:: 09:04 Time Stopped:: 10:00 Targeted Problem #:: 1 Type of Group:: Process - 9 group members Goal of Group:: The goal of today's group was to check-in with client's mood, stressors, and positives, review homework and introduce topic for the day. Client Response/Progress/Benefit:: Patient reported yesterday she had plans to go to a support group for individuals that have lost simply due to suicide. Patient shared as he got closer to the time of the group she became more anxious and did not believe she will be able to make it through the group. Patient shared she felt disappointed in herself for not going to the group because it has only offered once a month. The patient able to recognize perhaps she is not ready to be in a group environment that speaks about grief so intensely. Patient identified feeling irritable this morning and with coaching able to relate perhaps the irritability can be connected to grief and emotions connected to her loss. Patient seemed to benefit from expressing her thoughts and feelings as well as receiving support from peers. Eye Contact:: Fair Motor Activity:: Restless Appearance:: Disheveled Speech:: Appropriate Mood:: Anxious, Irritable, Depressed Affect:: Constricted Thoughts:: Linear, Logical, No evidence of hallucinations/delusions noted Staff Interventions:: Therapist used open-ended questions to elicit information about client's current stressors and mood state. Therapist was supportive by using active listening and reflection.
--- NOTE | 2017-11-30 16:28 | BH.SGPN ---
Service Group Progress Note - Session Psychotherapy Session #2 Date Open:: 11/30/17 Time Started:: 10:21 Time Stopped:: 11:13 Targeted Problem #:: 1
--- NOTE | 2017-12-05 12:46 | BH.SGPN ---
Service Group Progress Note - Session Psychotherapy Session #1 Date Open:: 12/05/17 Time Started:: 09:04 Time Stopped:: 10:08 Targeted Problem #:: 1 Type of Group:: Process - 6 Participants Goal of Group:: The goal of today's group was to check-in with client's mood, stressors, and positives, review homework, and to introduce the topic of the day. Client Response/Progress/Benefit:: Client entered session alert and attentive but appeared distracted as she kept getting up from group and look at the ground. Client shared that she has been having severe morning sickness and states, ?everything is bad. Life is bad.? Therapist processed the cognitive distortions associated with this thinking and she reported, ?I?m using all of them,? and went on to reframe her thought stating, ?Maybe it?s not a bad life, just a bad morning.? Client shared how she is going to attempt to not be angry today and stated, ?I know soon as I leave those doors all the bad stuff is going to start again so I?m good here.? Client indicated her emotion as pessimistic and benefitted from by processing with peers about cognitive distortions. Limited progress noted due to client negative outlook however client was able to reframe negative thoughts. Continued treatment necessary to practice positive reframe. Eye Contact:: Fair Motor Activity:: Restless - bouncing legs Appearance:: Disheveled Speech:: Appropriate Mood:: Euthymic, Anxious Affect:: Congruent Thoughts:: Linear, Logical, No evidence of hallucinations/delusions noted Staff Interventions:: Therapist used open-ended questions to elicit information about client's current stressors and mood. Therapist was supportive by using active listening and reflection. Psychotherapy Session #2 Date Open:: 12/05/17 Time Started:: 10:17 Time Stopped:: 11:19 Targeted Problem #:: 1 Type of Group:: Illness Management - 7 Participants Goal of Group:: To increase understanding of communication and the various types of communication. Another goal was to increase understanding of impact communication styles can have. Client Response/Progress/Benefit:: Client entered group alert, attentive, and willing to engage. Client was a big contributor to group. Client connected with the days quote stating, ?Sometimes we say too much or nothing at all and affects our emotions like depression and you?re not able to reach out to supports or isolate.? Client participated in group discussion of the different types of communication styles and identified her communication style as aggressive. Client benefitted from group by identifying the various communications styles, and progress noted in client?s ability to identify how her aggressive communication style impacts her. Continued treatment necessary to increase emotional regulation. Eye Contact:: Fair Motor Activity:: Restless - boucing legs Appearance:: Disheveled Speech:: Appropriate Mood:: Euthymic, Anxious Affect:: Full Thoughts:: Linear, Logical, No evidence of hallucinations/delusions noted Staff Interventions:: Therapist facilitated the group discussion about communication and explained the different types of communication. Therapist assisted group members in connecting the communication styles to the way they communicate and impact the communication style has on their relationships. Therapist provided support by using active listening and providing feedback.
--- NOTE | 2017-12-05 14:24 | BH.MDN ---
Multi-Disciplinary Note - Note 45-min Individual Date: 12/05/17
--- NOTE | 2017-12-05 15:59 | BH.SGPN ---
Service Group Progress Note - Session Psychotherapy Session #3 Date Open:: 12/05/17 Time Started:: 11:24 Time Stopped:: 12:18 Targeted Problem #:: 1 Type of Group:: Functional Skills Development - 7 participants Goal of Group:: To identify important components of communication and practice specific, clear communication. Staff Interventions:: Therapist led the discussion about important components of effective communication. Therapist provided each group member with the same three materials and broke the group into pairs. Therapist facilitated a communication activity in which the group members would have to achieve a goal by using effective communication to achieve such goal. Therapist processed the activity with the group
--- NOTE | 2017-12-07 14:18 | BH.SGPN ---
Service Group Progress Note - Session Psychotherapy Session #1 Date Open:: 18 - 8 group members Time Started:: 09:07 Time Stopped:: 10:12 Targeted Problem #:: 1 Type of Group:: Process Goal of Group:: The goal of today's group was to check-in with client's mood, stressors, and positives, and review homework. Client Response/Progress/Benefit:: Client responded well to session, receptive to feedback and providing supportive statements. Client reports feeling hopeful today as she was able to accomplish household tasks such as painting and packing. Client shared packing has forced client to declutter which client identifies as a positive. Client stated she has been avoiding naps as they keep client in a depressive cycle and shared that's actually been helpful and its big progress for me. Client appeared to benefit from identifying healthy coping skills she is using. Client seems to be progressing as shown by her increased activity and improved outlook, but can continue to benefit from expressing her emotions as client reported internalizing them in the past. Eye Contact:: Good Motor Activity:: Appropriate Appearance:: Casual Speech:: Appropriate Mood:: Euthymic Affect:: Full Thoughts:: Linear, No evidence of hallucinations/delusions noted Staff Interventions:: Therapist used open-ended questions to elicit information about client's current stressors and mood state. Therapist was supportive by using active listening and reflection.
--- NOTE | 2017-12-07 17:56 | BH.SGPN ---
Service Group Progress Note - Session Psychotherapy Session #2 Date Open:: 12/07/17 Time Started:: 10:21 Time Stopped:: 11:14 Targeted Problem #:: 1 Type of Group:: Illness Management - 8 participants Goal of Group:: To increase understanding of pitfalls and impact can have on mental health. Staff Interventions:: Therapist facilitated discussion about pitfalls and assisted group in identifying common pitfalls that can set you back. Therapist led group in an activity to help group understand impact pitfalls can have on oneself and identify strategies that could help you get back on the right path. Therapist provided support by using active listening and providing feedback. Psychotherapy Session #3 Date Open:: 12/07/17 Time Started:: 11:22 Time Stopped:: 12:14 Targeted Problem #:: 1 Type of Group:: Functional Skills Development - 9 participants Goal of Group:: To identify personal pitfalls and what keeps them stuck from moving forward. Staff Interventions:: Therapist facilitated activity in which group members were given the task to identify personal pitfalls and what keeps them stuck from moving past the pitfall. Therapist provided group members with the homework assignment of identifying strategies that can help them overcome pitfalls.
--- NOTE | 2017-12-08 12:15 | BH.SGPN ---
Service Group Progress Note - Session Psychotherapy Session #1 Date Open:: 12/08/17 Time Started:: 09:13 Time Stopped:: 10:15 Targeted Problem #:: 1 Type of Group:: Process - 4 participants Eye Contact:: Jed
--- NOTE | 2017-12-08 16:02 | BH.SGPN ---
Service Group Progress Note - Session Psychotherapy Session #2 Date Open:: 12/08/17 Time Started:: 10:20 Time Stopped:: 11:10 Targeted Problem #:: 1 Type of Group:: Illness Management Eye Contact:: Good Motor Activity:: Appropriate Appearance:: Casual Speech:: Appropriate Mood:: Euthymic Affect:: Congruent Thoughts:: Linear, Logical, No evidence of hallucinations/delusions noted Psychotherapy Session #3 Date Open:: 12/08/17 Time Started:: 11:20 Time Stopped:: 12:20 Targeted Problem #:: 1 Type of Group:: Functional Skills Development Eye Contact:: Good Motor Activity:: Appropriate Appearance:: Casual Speech:: Appropriate Mood:: Euthymic Affect:: Congruent Thoughts:: Linear, Logical
--- NOTE | 2017-12-12 14:43 | PCM.PN.BLA ---
Progress Note Patient is seen in follow-up for major depressive disorder recurrent moderate, anxiety unspecified, and vitamin D deficiency. History is been obtained per interview with patient, discussion with staff, review of chart. Case discussed with treatment team Chief complaint-life is hard/depression Interim history Patient reports moderate depressive symptoms persist. She noticed increased depression over the weekend with passive thoughts of suicide. She denies suicide plan or intent. She feels able to maintain safety. She identifies continued grief as her grandmother is terminally ill. She reports unjustified guilt about managing grief and her grandmother's terminal illness with her daughter (Age 3). She has moderate ruminative anxiety about anticipation of moving after her grandmother's . Currently resides with mother, grandmother and 3-year-old daughter. She is currently 24 weeks . Her appetite is normal. She does have some nausea due to the . She denies diarrhea. She is sleeping from 10 PM until 6 or 7 AM. Denies homicidal ideation. Denies times consistent with psychosis. Denies ingestion of alcohol or use of illicit drugs. With Celexa 20 mg daily. Reports did not start Effexor per recommendation of OB. Mental status exam Patient is alert and oriented. She appears her stated age. She is ambulatory with normal gait and station. She is cooperative with the interview. She has good eye contact. Appropriate grooming and hygiene. No psychomotor agitation or retardation. Mood is depressed. Affect restricted. Speech is clear and of regular rate and volume. Language fluent. Thought process organized. Associations logical. Thought content significant for ruminative anxiety brief. Recent suicidal ideation. No suicide plan or intent. Feels able to maintain safety. No homicidal ideation related or detected. No evidence of psychosis related to detected. Immediate recent and remote memory grossly intact. Attention and concentration are fair to good. Estimated intelligence fund of knowledge average. Judgment and insight are fair. Labs and testing recent vitamin D 19, TSH 1.56 Diagnosis Major depressive disorder recurrent moderate Anxiety unspecified Remote history disordered eating Vitamin D deficiency 24 weeks -EDC April 11, 2018 Plan Continue IOP as the structured setting is necessary to maintain gains and prevent decompensation. Risks benefits alternatives of medications discussed with patient. Patient acknowledges understanding. Continue Celexa 20 mg daily. Continue consultation with [facility]. Continue vitamin D supplement crease dose of 4000 units daily.. Establish with outpatient psychiatric providers for when IOP complete. Consider hospice grief group. 22 minutes of Insight oriented psychotherapy provided regarding grief. Patient acknowledges understanding and is in agreement with plan. She feels able to maintain safety. She agrees to seek help or emergency care feeling unsafe to self or others.
--- NOTE | 2017-12-12 16:03 | BH.MDN ---
Multi-Disciplinary Note - Note 45-min Individual Date: 12/12/17 Eye Contact:: Fair Motor Activity:: Appropriate Appearance:: Disheveled Speech:: Appropriate Mood:: Anxious, Depressed Affect:: Congruent Thoughts:: Linear, Logical, No evidence of hallucinations/delusions noted
--- NOTE | 2017-12-13 10:25 | BH.SGPN_ITS ---
Service Group Progress Note - Session Psychotherapy Session #1 Date Open:: 12/13/17 - 5 participants Time Started:: 09:05 Time Stopped:: 10:05 Targeted Problem #:: 1 Type of Group:: Process Goal of Group:: The goal of today's group was to check-in with client's mood, stressors, and positives, review homework and introduce topic for the day. Client Response/Progress/Benefit:: Client responded well to session, sharing good insight and providing supportive statements. Client reports feeling hopeful today as client stated she was able to turn around a ?terrible? beginning of the week and have a more positive outlook. Client shared her talk with AC and her individual IOP therapist helped client further process her grief and learn it's okay to grieve. Client shared she plans to maintain her improved mood by getting out of the house, going to grief counseling, and remembering the good times with grandma. Client focused on her individual strengths as well by sharing she is resilient. Client appeared to benefit from reflecting on her progress as well as gaining awareness of the importance of grief. Client progressing as shown by her report of generalizing coping skills and topics discussed in group. Eye Contact:: Good Motor Activity:: Appropriate Appearance:: Casual Speech:: Appropriate Mood:: Euthymic Affect:: Full Thoughts:: Linear, No evidence of hallucinations/delusions noted Staff Interventions:: Therapist used open-ended questions to elicit information about client's current stressors and mood state. Therapist was supportive by using active listening and reflection.
--- NOTE | 2017-12-13 10:38 | BH.SGPN_ITS ---
Service Group Progress Note - Session Psychotherapy Session #2 Date Open:: 12/12/17 - 10 participants Time Started:: 10:21 Time Stopped:: 11:12 Targeted Problem #:: 1 Type of Group:: Illness Management Goal of Group:: To increase understanding of what strengths are and identify individual strengths. Client Response/Progress/Benefit:: Client responded well to session, active participant. Client appeared to connect with quote sharing, you would think it' s about power, but change comes from persistence and dedication. Client defined strengths as positive traits or skills one has. Client identified her personal strengths as asking and accepting help, persistence, handling conflict , mindfulness, and sense of humor. Client reported on days when she struggles, her strengths have helped client reach out to supports and pick herself out of pitfalls. Client appeared to benefit from identifying how her strengths impact mental health. Progress noted in client's generalization of coping skills, but can continue to benefit from processing grief and negative thoughts. Eye Contact:: Poor Motor Activity:: Appropriate Appearance:: Disheveled Speech:: Appropriate Mood:: Irritable, Depressed Affect:: Flat, Other - Affect did become full by the end of session. Thoughts:: Linear, No evidence of hallucinations/delusions noted Staff Interventions:: Therapist facilitated discussion about what are strengths and assisted group members in identifying examples of strengths. Therapist led an activity in which group members were given the opportunity to identify five personal strengths. Therapist assisted clients in connecting the importance of recognizing personal strengths. Psychotherapy Session #3 Date Open:: 12/12/17 - 9 participants Time Started:: 11:40 Time Stopped:: 12:15 Targeted Problem #:: 1 Type of Group:: Functional Skills Development Goal of Group:: To identify what gets in their way of recognizing and utilizing their strengths and identifying ways to make strengths easier to access. Behaviors/Verbalizations/Mental Status:: Client came to group late as she was meeting with AC Client Response/Progress/Benefit:: Client responded well to session, quiet at first, but then providing input. Client stated she realizes she has strengths, but she does not always use them. Client reported depression, grief, and negative self-talk have been barriers keeping client from tapping into her strengths. Client stated having supports point out strengths can be awkward, but helpful. Client helped the group identify strategies to overcome barriers such as challenging negative thoughts, using positive self-talk, and accepting support. Client appeared to benefit from gaining awareness of barriers and identifying strategies to overcome them. Client to continue IOP to promote mood stability and reduce depression. Eye Contact:: Good Motor Activity:: Appropriate Appearance:: Disheveled Speech:: Appropriate Mood:: Euthymic Affect:: Full Thoughts:: Linear, No evidence of hallucinations/delusions noted Staff Interventions:: Therapist utilized an activity as a tool in helping clients recognize the things that can get in their way from utilizing their strengths and identify alternative strategies to overcome those barriers. Therapist processed the activity, helping others connect challenges that keep them from recognizing and using their strengths. Therapist helped clients connect the importance of utilizing supports to build personal strengths and ways to challenge negative thoughts that prevent clients from acknowledging their strengths. Therapist provided support by using active listening and providing feedback.
--- NOTE | 2017-12-13 12:19 | BH.SGPN ---
Service Group Progress Note - Session Psychotherapy Session #2 Date Open:: 12/13/17 Time Started:: 10:15 Time Stopped:: 11:10 Targeted Problem #:: 1 Type of Group:: Illness Management Client Response/Progress/Benefit:: Pt contributed positively to discussion adn listened attentively to others. When processing quote pt identified sleeping is her problem because she uses sleeping as avoiding the problem which pt recognizes only makes the situation worse. Pt reported by sleeping when stressed she just puts the problem off instead of solving it. Pt identified her current coping skills to be: avoidance, napping , stress baking, baths, humor, breathing and aromatherapy. Pt able to differentiate which skills are healthy and which are unhealthy. Pt seemed to benefit from increasing awareness of importance of healthy coping. Eye Contact:: Good Motor Activity:: Appropriate Appearance:: Disheveled Speech:: Appropriate Mood:: Euthymic Affect:: Congruent Thoughts:: Linear, Logical, No evidence of hallucinations/delusions noted Psychotherapy Session #3 Date Open:: 12/13/17 Time Started:: 11:20 Time Stopped:: 12:15 Targeted Problem #:: 1 Type of Group:: Functional Skills Development Client Response/Progress/Benefit:: Client contributed positively to discussion and listened attentively to others. During discussion of various healthy coping skills pt able to provide several ideas of different healthy skills that could be helpful. Pt reported her coping menu to include: reading, grounding technique, talking to supports, bath, and trying the art journal. Pt shared she is willing to practice a differnet skills from the menu each day. Pt seemed to benefit from increasing repertoire of healthy coping strateiges. Eye Contact:: Good Motor Activity:: Appropriate Appearance:: Disheveled Speech:: Appropriate Mood:: Euthymic Affect:: Congruent Thoughts:: Linear, Logical, No evidence of hallucinations/delusions noted
--- NOTE | 2017-12-13 13:24 | BH.SGPN ---
Service Group Progress Note - Session Psychotherapy Session #1 Date Open:: 12/12/17 Time Started:: 09:06 Time Stopped:: 10:15 Targeted Problem #:: 1 Type of Group:: Process - 9 participants Goal of Group:: The goal of group was to check-in on clients mood, stressors and positives and introduce the topic of the day. Client Response/Progress/Benefit:: Client responded well to session despite limited participation. She was able to remain engaged in the discussion AEB her actively following along with what fellow participants shared, maintaining eye contact, and nodding her head. Client declined to share during session; however, appeared to benefit from the supportive and safe environment of the group. She appeared upset as she remained quiet throughout which is abnormal for client as she typically provides input to the group. Client is recommended continued IOP to prevent decompensation and continue to address symptoms of depression and associated grief. Eye Contact:: Fair Motor Activity:: Appropriate Appearance:: Disheveled Speech:: Other - Client declined to provide input to session Mood:: Depressed Affect:: Constricted Thoughts:: Linear, Logical, No evidence of hallucinations/delusions noted Staff Interventions:: Therapist used open-ended questions to elicit information about client's current stressors and mood state. Therapist was supportive by using active listening and reflection. Therapist utilized a quote related to anger as an aid in introducing the topic of the day and facilitated discussion of quote.
--- NOTE | 2017-12-13 13:31 | BH.SGPN_ITS ---
Service Group Progress Note - Session Psychotherapy Session #1 Date Open:: 12/12/17 Time Started:: 09:06 Time Stopped:: 10:15 Targeted Problem #:: 1 Type of Group:: Process - 9 participants Goal of Group:: The goal of group was to check-in on client?s mood, stressors and positives and introduce the topic of the day. Client Response/Progress/Benefit:: Client responded well to session despite limited participation. She was able to remain engaged in the discussion AEB her actively following along with what fellow participants shared, maintaining eye contact, and nodding her head. Client declined to share during session; however , appeared to benefit from the supportive and safe environment of the group. She appeared upset as she remained quiet throughout which is abnormal for client as she typically provides input to the group. Client is recommended continued IOP to prevent decompensation and continue to address symptoms of depression and associated grief. Eye Contact:: Fair Motor Activity:: Appropriate Appearance:: Disheveled Speech:: Other - Client declined to provide input to session Mood:: Depressed Affect:: Constricted Thoughts:: Linear, Logical, No evidence of hallucinations/delusions noted Staff Interventions:: Therapist used open-ended questions to elicit information about client's current stressors and mood state. Therapist was supportive by using active listening and reflection. Therapist utilized a quote related to anger as an aid in introducing the topic of the day and facilitated discussion of quote.
--- NOTE | 2017-12-14 13:32 | BH.SGPN_ITS ---
Service Group Progress Note - Session Psychotherapy Session #2 Date Open:: 12/14/17 - 10 group members Time Started:: 10:25 Time Stopped:: 11:15 Targeted Problem #:: 1 Type of Group:: Illness Management Goal of Group:: To increase understanding of importance of boundaries and the different ways of setting boundaries (permeable, rigid, and flexible). Client Response/Progress/Benefit:: Client responded well to session providing good insight to discussion. Client appeared to connect with the quote,sharing ? setting boundaries is about learning to value yourself.? Client helped the group identify the characteristics of each boundary type as well as the pros and cons. Client shared being permeable or porous may ?make others like you? but it will result in burnout and stress. Client stated being flexible is important as it allows you to set limits while being open to support. Client appeared to benefit from learning the importance of boundary setting. Progress noted as client has improved with processing grief and expressing emotions, but can continue to benefit from challenging negative thoughts. Eye Contact:: Good Motor Activity:: Appropriate Appearance:: Casual Speech:: Appropriate Mood:: Euthymic Affect:: Full Thoughts:: Linear, No evidence of hallucinations/delusions noted Staff Interventions:: Therapist facilitated group discussion about defining boundaries. Therapist led discussion about importance of boundaries, assisting group members with identifying the impact of healthy and unhealthy boundaries. Therapist educated the group about the three different ways of setting boundaries and led discussion about each one. Therapist assisted clients with identifying the costs and benefits to the three different styles of boundary setting and how each style can impact mental health as well as relationships. Psychotherapy Session #3 Date Open:: 12/14/17 - 9 group members Time Started:: 11:25 Time Stopped:: 12:20 Targeted Problem #:: 1 Type of Group:: Functional Skills Development Goal of Group:: Increase awareness of current boundary style, identifying impact current way of setting boundaries has on mental health as well as relationships. Client Response/Progress/Benefit:: Client responded well to session, active participant. Client reported she often has rigid boundaries sharing, ?my castle has high dillard, I usually keep my emotions to myself.? Client shared she often appears strong on the surface which leads to internalizing emotions and isolation. Client stated she will open up and express her emotions to her mother as the two are close. Client reported processing and expressing grief has been challenging for client as up until recently client did not ?allow myself to grieve.? Client stated now that she recognizes the importance of expressing emotions she feels more at peace. Client appeared to benefit from increasing awareness of how rigid boundaries impact client's overall well- being. Client to continue IOP to promote mood stability and increase emotional regulation. Eye Contact:: Good Motor Activity:: Appropriate Appearance:: Casual Speech:: Appropriate Mood:: Euthymic Affect:: Full Thoughts:: Linear, No evidence of hallucinations/delusions noted Staff Interventions:: Therapist provided the group member with a wide array of supplies, asking each group member to create a castle that would represent the boundaries they currently have in place. The expressive activity was used as a tool to help increase client?s self-awareness of their boundaries. Therapist processed each group member?s castle, inquiring what style the group member currently uses most frequently and how current boundary style impacts his/her mental health and relationships. Therapist provided support by using reflective listening and giving feedback.
--- NOTE | 2017-12-14 22:03 | BH.SGPN ---
Service Group Progress Note - Session Psychotherapy Session #1 Date Open:: 12/14/17 Time Started:: 09:06 Time Stopped:: 10:20 Targeted Problem #:: 1 Type of Group:: Process - 10 participants Goal of Group:: The goal of today's group was to check-in with client's mood, stressors, and positives, review homework and introduce topic for the day. Client Response/Progress/Benefit:: Client responded well to session which was evidenced by increased input and engagement in the discussion . She provided supportive feedback and encouragement to the group, as well as was receptive to feedback and encouragement from fellow participants as well. CLient discussed that signing up for an extra day of group aided in her ability to maintain stability, manage emotions, and utilize healthy means of coping while trying to be there for her grandmother. SHe discussed spending the previous night working on the house she is moving to as well as caring for her grandmother. Client disclosed that this had been the first time she cared for her on her own and was pleasantly surprised by how well the night had gone. CLient reflected upon taking time to process her emotions had been an important factor and appeared to benefit from the support and understanding provided by the group. CLient indicates feeling hopeful today and planning to spend time with her daughter this afternoon. She would benefit from continuing to workk on implementing healthy strategies for processing and and coping with uncomfortable emotions as well as to maintain gains made. Eye Contact:: Good Motor Activity:: Appropriate Appearance:: Casual Speech:: Appropriate Mood:: Euthymic Affect:: Full Thoughts:: Linear, Logical, No evidence of hallucinations/delusions noted Staff Interventions:: Therapist used open-ended questions to elicit information about client's current stressors and mood state. Therapist was supportive by using active listening and reflection.
--- NOTE | 2017-12-15 15:04 | BH.SGPN ---
Service Group Progress Note - Session Psychotherapy Session #1 Date Open:: 12/15/17 - 5 group members Time Started:: 09:08 Time Stopped:: 10:15 Targeted Problem #:: 1 Type of Group:: Process Goal of Group:: The goal of today's group was to check-in with client's mood, stressors, and positives, review homework and introduce topic for the day. Client Response/Progress/Benefit:: Client responded well to session, active participant and providing supportive statements to peers. Client reports feeling hopeful even though I've used that already this week. Client stated, I feel like I'm handling the situation really well as client's grandmother is on hospice and is most likely going to pass soon, but client reports belief she is managing her emotions and grief in a healthy way. Client shared she set up an appointment with grief counseling later this month which is helping client cope as well. Client appeared to benefit from identifying the healthy coping strategies she has been using to prevent rumination and isolation. Client seems to be progressing as shown by her report of increased emotional regulation skills, but can continue to benefit from not minimizing her symptoms. Eye Contact:: Good Motor Activity:: Appropriate Appearance:: Casual Speech:: Appropriate Mood:: Euthymic Affect:: Full Thoughts:: Linear, No evidence of hallucinations/delusions noted Staff Interventions:: Therapist used open-ended questions to elicit information about client's current stressors and mood state. Therapist was supportive by using active listening and reflection.
--- NOTE | 2017-12-17 15:13 | BH.SGPN_ITS ---
Service Group Progress Note - Session Psychotherapy Session #2 Date Open:: 12/15/17 Time Started:: 10:20 Time Stopped:: 11:10 Targeted Problem #:: 1 Type of Group:: Illness Management - 7 participants Goal of Group:: To increase understanding of fear and explore the negative impact fear of failure can have on mental health and decision making. Client Response/Progress/Benefit:: Client responded well to group, was actively engaged, and provided positive feedback and encouragement to the group. Client shared connecting with the 10 signs you might have fear of failure and indicated that society has taught us to view struggling with mental kenrick as a personal failure which in turn has prevented her from seeking help when she might need to. CLient additionally was an active participant in the activity portion of the group and benefited from challenging herself to identify her initial reaction to being placed in a situation in which she may potentially fail. Client provided insight into her tendancy to lower others expectations for her so that she could not disappoint anyone if she failed. Client showing consistent progress in her ability to internalize treatment concepts and utilize resources available, however would benefit from continuing to focus on challenging anxious and self-depricating thought patterns. Eye Contact:: Good Motor Activity:: Appropriate Appearance:: Casual Speech:: Appropriate Mood:: Euthymic Affect:: Full Thoughts:: Linear, Logical, No evidence of hallucinations/delusions noted Staff Interventions:: Therapist facilitated discussion about fear and impact fear of failure can have. Therapist led group in an experiential activity in which client?s would fail numerous times throughout, but were given the opportunity to try again. Therapist led the processing of the activity and assisted clients with connecting how fear of failure impacted their decision making during the activity. Psychotherapy Session #3 Date Open:: 12/15/17 Time Started:: 11:16 Time Stopped:: 12:08 Targeted Problem #:: 1 Type of Group:: Functional Skills Development - 5 participants Goal of Group:: To identify the impact fear of failure has had on the group members lives and identify strategies to overcome fear of failure. Client Response/Progress/Benefit:: Client again was responsive to session and did well to remain engaged in the discussion throughout. She worked with fellow participants to process and identify connections between the activity completed in previous group and experiencing fear of failure in daily life. CLient discplayed progress in her ability to identify connections specific to her own life AEB CLient discussing a correlation between her self-doubt and fear of letting others down in the activity to her personal experiences in managing MH sx. Client went on to identify that fear of failure has impacted her ability to regulate her emotions and led to increased irritability and isolation. She appeared to benefit from identifying the positive lessons failure has taught her such as the amount of strength and resiliency she has or seeing how much she is really capable of. CLient recommended continued IOP to further consistency of Client use of healthy coping skills as well as challenge negative thought patterns contributing to sx of depression and anxiety. Eye Contact:: Good Motor Activity:: Appropriate Appearance:: Casual Speech:: Appropriate Mood:: Euthymic Affect:: Full Thoughts:: Linear, Logical, No evidence of hallucinations/delusions noted Staff Interventions:: Therapist provided each group member with a worksheet to complete that asked questions about their experiences with fear of failure. Therapist led the processing of the worksheet, helping client?s connect how fear of failure has impacted them. Therapist provided support by using active listening and providing feedback.
--- NOTE | 2017-12-18 11:02 | BH.SGPN ---
Service Group Progress Note - Session Psychotherapy Session #1 Date Open:: 12/18/17 Time Started:: 09:05 Time Stopped:: 10:20 Targeted Problem #:: 1 Type of Group:: Process - 8 group members Goal of Group:: The goal of today's group was to check-in with client's mood, stressors, and positives, review homework and introduce topic for the day. Client Response/Progress/Benefit:: Client reported she had the worst [employer] day ever. Client explained on Monday and her grandmother . Client reported although she is really sad because her grandma is gone she is having her grandmother is no longer suffering. Client shared she continues to have lots of triggers that remind her of her grandma. Client shared she is coping by spending a lot of time with her family and chose to attend group today because she knew she would need the support. Client demonstrating progress as evidenced by her using healthy coping strategies given a extremely stressful situation and reaching out to supports when not doing well. Eye Contact:: Fair Motor Activity:: Appropriate Appearance:: Disheveled Speech:: Appropriate Mood:: Depressed, Other - Tearful Affect:: Congruent Thoughts:: Linear, Logical, No evidence of hallucinations/delusions noted Staff Interventions:: Therapist used open-ended questions to elicit information about client's current stressors and mood state. Therapist was supportive by using active listening and reflection.
--- NOTE | 2017-12-19 14:44 | BH.MDN ---
Multi-Disciplinary Note - Note 45-min Individual Time Started:: 12:20 Date: 12/19/17 Purpose of session/treatment goals addressed:: Purpose of session was to assess pt's current symptoms and stressors. Other topics included: education about common reactions to grief, review of healthy coping skills, and self care wheel. Eye Contact:: Fair Motor Activity:: Appropriate Appearance:: Disheveled Speech:: Appropriate Mood:: Depressed Affect:: Congruent, Other - tearful Thoughts:: Linear, Logical, No evidence of hallucinations/delusions noted Staff Interventions:: Therapist utiilized open ended questions to elicit pt's current symptoms and stressors. Therapist reviewed common reactions to grief with pt, provided support by validating emotions. Therapist assisted pt with identifying what coping strategies can be helpful for pt to use during this difficult time. Therapist worked with pt to identify schedule for rest of day to keep pt from using sleeping as a coping skill. Client Response:: Pt talked about the day her grandma and what she has been doing to cope with the loss so far. Pt reported even though she knew her grandma was dying it didn't make the loss any less painful. Pt shared her daughter just started to ask about where her grandma was, which pt reported made it harder for her. Pt reported she has been wanting to sleep more often, but has tried her best to not take naps or use sleeping as an escape. Pt shared she is happy grief counseling has been set up for next week because she recognizes she needs to have the extra support. Pt initially struggled with identifying what she would do the rest of the day, expressing desire to do nothing. Pt eventually identified she would take her daughter to the library to give her daughter something to do as well as get self out of the house. Pt connected with the self-care wheel and recognized the importance of taking care of herself. Risks/Concerns:: Pt denies suicidal ideation, plan or intention to date. Progress Toward Goals/Plan:: Pt demonstrating progress AEB pt being aware of her impulse to revert to unhealthy coping skills after the recent loss of her grandma. Pt is doing well with focusing on what skills could be helpful during this tough time. Pt depressive and anxiety symptoms currently heightened given recent stressor, but pt showing improved ability to manage symptoms during crisis. Pt to continue IOP to maintain gains and prevent decompensation. Time Stopped:: 13:00
--- NOTE | 2017-12-19 14:53 | BH.SGPN ---
Service Group Progress Note - Session Psychotherapy Session #1 Date Open:: 12/19/17 Time Started:: 09:05 Time Stopped:: 10:00 Type of Group:: Process - 8 group members Goal of Group:: The goal of today's group was to check-in with client's mood, stressors, and positives, review homework and introduce topic for the day. Client Response/Progress/Benefit:: Active participant in group discussions. Shared with the group that she is continuing to grieve her GMA who yesterday. Shared that her dauther began to aks questions yesterday which she stuggled to answer however was able to address in an appropriate way. Using some distraction techniques and coping skills to manage emotions however understands that saddness, crying, and depression are common reactions to process during grief. Benefited from group support and encouragment. Lmited progress as she is having gried reactions. Continued treatment to prevent further decompensation. Eye Contact:: Fair Motor Activity:: Appropriate Appearance:: Disheveled Speech:: Appropriate Mood:: Anxious, Depressed Affect:: Congruent Thoughts:: Linear, Logical, No evidence of hallucinations/delusions noted Staff Interventions:: Therapist used open-ended questions to elicit information about client's current stressors and mood state. Therapist was supportive by using active listening and reflection.
--- NOTE | 2017-12-19 15:01 | BH.SGPN ---
Service Group Progress Note - Session Psychotherapy Session #2 Date Open:: 12/19/17 Time Started:: 10:15 Time Stopped:: 11:08 Targeted Problem #:: 1 Type of Group:: Illness Management - 8 group members Goal of Group:: To increase understanding of what conflict is and increase awareness of how group members manage conflict. Client Response/Progress/Benefit:: Client reported talking about conflict is helpful to her because every day she is dealing with conflict internally and externally and reported she often deals with conflict by being more competitive. Client shared she recognizes that by being more competitive she might hurt others which could impact relationships. Reported at times she will avoid conflict by sleeping because she does not want to have to face the situation. Able recognizes that this avoidance will not resolve anything. Client seemed to benefit from increasing awareness of the different conflicts resolution styles as well as gaining insight as to which comfort style she tends to utilize. Eye Contact:: Good Motor Activity:: Appropriate Appearance:: Disheveled Speech:: Appropriate Mood:: Euthymic, Dysthymic Affect:: Congruent Thoughts:: Linear, Logical, No evidence of hallucinations/delusions noted Staff Interventions:: Therapist facilitated discussion about conflict and conflict resolution. Therapist led group in an activity in which group members had to identify their initial response to conflict and how their response changes based on different situations. Therapist assisted clients with connecting the impact current conflict style has on their mental health. Psychotherapy Session #3 Date Open:: 12/19/17 Time Started:: 11:18 Time Stopped:: 12:15 Targeted Problem #:: 1 Type of Group:: Functional Skills Development - 9 group members Goal of Group:: To identify what contributes positively and negatively to conflict and appropriate ways to manage conflict with others. Client Response/Progress/Benefit:: Client contributed positively to discussion and listened attentively to others. During activity client appeared to make an effort to work on being more collaborative comes conflict versus being her typical competitive style. Client shared she denies is important for her to be open to others' opinions and ideas and trying to be optimistic and open minded. Client shared she plans to use it is topic in her daily life by allowing herself to be open other ideas especially regarding help she might need. Seemed to benefit from practicing being more collaborative in her response to conflict as well as identifying as a group strategies to help resolve conflict in a healthy and appropriate manner. Eye Contact:: Good Motor Activity:: Appropriate Appearance:: Disheveled Speech:: Appropriate Mood:: Euthymic, Dysthymic Affect:: Congruent Thoughts:: Linear, Logical, No evidence of hallucinations/delusions noted Staff Interventions:: Therapist facilitated group activity in which group members were provided with materials and had to eliminate certain items with consensus from group. Therapist processed activity, helping clients connect throughout activity strategies each person used to manage conflict. Therapist led discussion about what contributes to conflict in a positive or negative manner. Therapist facilitated discussion about conflict resolution strategies and provided group member with a handout about effective ways to manage conflict.
--- NOTE | 2017-12-19 15:13 | BH.TPR ---
Treatment Plan Review Date of Admission:: 11/21/17 Date of Treatment Plan Review:: 12/19/17 Admitting Diagnoses:: Major depressive disorder recurrent moderateF 33.1. Anxiety unspecified. Remote history disordered eating Current Diagnoses:: Major depressive disorder recurrent moderate F 33.1. Anxiety unspecified. Remote history disordered eating Patient's Response to Treatment:: Pt has responded well to treatment as evidenced by pt regularly attending IOP, engaging in both group and individual counseling sessions. Pt often is an active participant during group sessions, contributed her thoughts and ideas as well as listening to other group members. Pt variably completes homework from group and individual sessions, but majority of time reports applying skills learned. Status of Current Problems and Symptoms: On 12/16/17 pt's grandmother , which seems to have exasperated pt's symptoms. Pt's declining health throughout the week seemed to increase pt's anxious symptoms and increased pt's desire to sleep and avoid situation. Despite the recent stressor pt is showing progress with being more aware of her thought patterns and trying to not go back to using her unhealthy coping skills of sleeping and avoiding. Problem #1 Problem Name:: Depression Status of Goals:: Pt has demonstrated progress with getting out of the house at least 5 days a week and has been continuing to take her daughter to the public [employer] children events on a weekly basis. Pt reported a few times getting out of the house alone, which she enjoyed because gave her the opportunity to have me time. Pt also showing progress with using healthy coping skills as evidenced by pt cutting out her napping most days of the week and instead an activity that is more productive. Pt using her thought challenge coping strategies when she notices a negative or unhelpful thought. Pt making progress on both objectives, but has not fully met goals. Team Recommendations:: The team recommends continue current IOP goals/objectives until consistent progress is observed. IOP therapist will explore with pt what activities she can do to get out of the house when she is no longer in IOP. The concern is that 3 out of the 7 days she is getting out of the house to go to IOP and then goes home for rest of day. Thearpist will focus on assisting pt with having a plan of action of what she can do daily to ensure she is getting out and not reverting back to isolative behaviors. Problem #2 Problem Name:: Anxiety Status of Goals:: Pt has demonstrated progress on stabilizing anxiety level by using calming skills, challenging her thoughts and grounding self to the here and now. Pt's recent stressor of her grandmother's seems to be contributing to recent increased anxiety. Team Recommendations:: Team recommends keeping current goal to ensure pt consistently is using her calming skills when recently experienced a life stressor.
--- NOTE | 2017-12-20 15:29 | BH.SGPN_ITS ---
Service Group Progress Note - Session Psychotherapy Session #2 Date Open:: 12/18/17 Time Started:: 10:30 Time Stopped:: 11:26 Targeted Problem #:: 1 Type of Group:: Illness Management - 7 participants Goal of Group:: The goal of group was to increase understanding of the benefits social support provides in mental health wellness. Another goal was to increase self-awareness of the barriers that prevent client to seeking support or utilizing the support they have. Client Response/Progress/Benefit:: Client responded well to session and was engaged throughout the activity and discussion portions of session. She did well to work collaboratively with fellow participants on completing the marble transfer activity and provided support and encouragement to members of her small group. Client was able to identify connections between needing to rely on others in order to complete the prompt and using her support system in order to best maintain mental health and stability. She was receptive to the group topic of Social Supports. She inquired what do you do if your support net has holes and went on to explain feeling as though the people she thought were her supports have not really been there when she actually needs them. Client openly discussed struggling with identifying an appropriate and effective support system since the of her grandmother earlier this week. She benefited from working with the group to discuss the potential barriers to accessing social supports we place on ourselves. Client identified avoiding and pretending that I don't really need help as barrers to recieving the support she may need. Recommended continued IOP to continue to challenge distortions and increase Client self confidence levels. Eye Contact:: Good Motor Activity:: Appropriate Appearance:: Casual Speech:: Appropriate Mood:: Euthymic Affect:: Congruent Thoughts:: Linear, Logical, No evidence of hallucinations/delusions noted Staff Interventions:: Therapist led a group discussion about importance of social supports. Therapist facilitated an activity that required the group members to utilize support from each other. Therapist utilized the activity as a tool to connect the importance of accepting social support. Therapist provided support through reflective listening and giving feedback. Psychotherapy Session #3 Date Open:: 12/18/17 Time Started:: 11:35 Time Stopped:: 12:30 Targeted Problem #:: 1 Type of Group:: Functional Skills Development - 7 participants Goal of Group:: The goal of group was to increase understanding of the different types of social support. Another goal was to identify one type of support the client?s desire and establish one small step towards achieving that support. Client Response/Progress/Benefit:: Client responded well to session, engaged throughout. She provided frequent input to the conversation and offered supportive feedback. Client worked with the group to identify the potential signs of an insufficient support system and indicated when your supports can't give you the type of help that you need. Client benefited from working within small groups to brainstorm strategies for enhancing one's support system. She identified wanting to increase professional and support groups. Client identified a small step towards improving these supports would be listing motivations to follow through with attending the [facility] group she is schedule to begin on Monday. Indicates that this will remind her of why she needs support and ways it will assist with the grieving process. Eye Contact:: Good Motor Activity:: Appropriate Appearance:: Casual Speech:: Appropriate Mood:: Euthymic Affect:: Congruent Thoughts:: Linear, Logical, No evidence of hallucinations/delusions noted Staff Interventions:: Therapist facilitated group discussion on the different types of social support and importance of each type of support. A social support worksheet, was utilized to give clients direction in identifying which type of support they desired, how it will help, and identifying the first small step towards the desired support. Therapist provided homework for each group member to try and accomplish the one small step each group member identified on the worksheet.
--- NOTE | 2017-12-26 12:25 | BH.SGPN ---
Service Group Progress Note - Session Psychotherapy Session #1 Date Open:: 12/26/17 Time Started:: 09:05 Time Stopped:: 10:05 Targeted Problem #:: 1 Type of Group:: Process - 5 group members Goal of Group:: The goal of today's group was to check-in with client's mood, stressors, and positives, review homework and introduce topic for the day. 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 Client reported interview really made her feel excited about the potential of getting the job. Client shared the rest of the weekend went terribly because Monday was the for her grandma, which was very sad. client reported on a positive note she did get to see her brother that lives out of state. Client reported Monday and Monday were rough because she had morning sickness so slept most the day. Client shared she is disappointed in herself for not going to her scheduled grief counseling appointment on Monday. Client reported she felt too sick to go anywhere. Client progress seems to be hindered by recent stressor of her grandma's . Seemed to benefit from support from peers. Eye Contact:: Fair Motor Activity:: Appropriate Appearance:: Casual Speech:: Appropriate Mood:: Irritable Affect:: Constricted Thoughts:: Linear, Logical, No evidence of hallucinations/delusions noted Staff Interventions:: Therapist used open-ended questions to elicit information about client's current stressors and mood state. Therapist was supportive by using active listening and reflection.
--- NOTE | 2017-12-26 16:04 | BH.SGPN_ITS ---
Service Group Progress Note - Session Psychotherapy Session #3 Date Open:: 12/05/17 Time Started:: 11:24 Time Stopped:: 12:18 Targeted Problem #:: 1 Type of Group:: Functional Skills Development - 7 participants Goal of Group:: To identify important components of communication and practice specific, clear communication. Staff Interventions:: Therapist led the discussion about important components of effective communication. Therapist provided each group member with the same three materials and broke the group into pairs. Therapist facilitated a com munication activity in which the group members would have to achieve a goal by using effective communication to achieve such goal. Therapist processed the activity with the group
--- NOTE | 2017-12-27 14:27 | BH.MDN ---
Multi-Disciplinary Note - Note 30-min Individual Date: 12/27/17
--- NOTE | 2017-12-27 15:20 | BH.SGPN_ITS ---
Service Group Progress Note - Session Psychotherapy Session #1 Date Open:: 18 - 8 group members Time Started:: 09:06 Time Stopped:: 10:15 Targeted Problem #:: 1 Type of Group:: Process Goal of Group:: The goal of today's group was to check-in with client's mood, stressors, and positives, and review homework. Client Response/Progress/Benefit:: Client responded well to session, receptive to feedback and supportive statements. Client reports feeling sad today as she continues to grieve over the loss of her grandmother. Client shared she is not ready to go to grief counseling. Client stated it has been especially hard to cope due to numerous stressors this weekend including client's health and moving her grandmother?s belongings. Client stated she is having a hard time with her daughter's grieving process as client's daughter is too young to comprehend the loss. Client stated she plans to get out of the house today, clean, and spend time with her daughter to manage depressive symptoms and grief. Client appeared to benefit from receiving supportive statements from peers and identifying ways to improve her mood today. Client seems to be progressing as shown by her ability to regulate her emotions despite multiple hardships. Client to continue IOP to prevent decompensation and promote emotional regulation. Eye Contact:: Good Motor Activity:: Appropriate Appearance:: Disheveled Speech:: Appropriate Mood:: Dysthymic Affect:: Other - Client using humor to cope with grief. Thoughts:: Linear, No evidence of hallucinations/delusions noted Staff Interventions:: Therapist used open-ended questions to elicit information about client's current stressors and mood state. Therapist was supportive by using active listening and reflection.
--- NOTE | 2017-12-27 16:28 | BH.SGPN ---
Service Group Progress Note - Session Psychotherapy Session #2 Date Open:: 12/27/17 Time Started:: 10:20 Time Stopped:: 11:15 Targeted Problem #:: 1 Type of Group:: Illness Management - 7 group members Goal of Group:: To increase understanding of cognitive distortions, identify examples of when have had unhelpful thinking, and increase awareness of the impact cognitive distortions have on mental health. Client Response/Progress/Benefit:: Pt contributed positively to discussion and listened attentively to others. Pt reported she knows her negative thoughts are powerful and have impacted her negatively. Pt connected with many of the cognitive distortions, worked cooperatively with small group to identify different distorted thoughts. Pt shared she recognizes that one cognitive distortion can lead to multiple distortions. Pt connected that distorted thoughts impact her emotions and behavior. Pt seemed to benefit from increasing awareness of cognitive distortions and connected impacted distorted thoughts can have on self. Eye Contact:: Good Motor Activity:: Appropriate Appearance:: Casual Speech:: Appropriate Mood:: Dysthymic Affect:: Congruent Thoughts:: Linear, Logical, No evidence of hallucinations/delusions noted Staff Interventions:: Therapist provided group members with a handout that listed ten cognitive distortions with examples. Therapist facilitated group discussion about cognitive distortions. Therapist led group members in an activity to help them understand the impact cognitive distortions can have on emotions and behavior. Therapist provided support by using active listening and providing feedback. Psychotherapy Session #3 Date Open:: 12/27/17 Time Started:: 11:30 Time Stopped:: 12:20 Targeted Problem #:: 1 Type of Group:: Functional Skills Development - 7 group members Goal of Group:: To identify ways of defeating cognitive distortions and rehearse defeating the identified cognitive distortion. Client Response/Progress/Benefit:: Pt active participant, contributed to discussion, worked cooperatively with others and listened attentively to peers. Pt able to reframe distorted thought patterns. Pt shared she learned that it is easy to fall into the distorted thought patterns, which results in it become harder to break the cycle. Pt shared she will use today's topic in her daily life by being aware when cognitive distortions approach, and work hard to reframe those thoughts by making them rational. Pt seemed to benefit from group rehearsing reframing and challenging distorted thought patterns. Eye Contact:: Good Motor Activity:: Appropriate Appearance:: Casual Speech:: Appropriate Mood:: Dysthymic Affect:: Congruent Thoughts:: Linear, Logical, No evidence of hallucinations/delusions noted Staff Interventions:: Therapist utilized an activity as a tool in helping clients connect the amount of effort one will need to put forth to defeat cognitive distortions. Therapist provided group members with a handout to use as an aid when trying to defeat their unhelpful thinking. Therapist processed the worksheet with group members, helping them reframe the cognitive distortions.
--- NOTE | 2017-12-29 11:25 | BH.VS.HW ---
Vital Signs - Pulse Pulse Rate: 72 - Respirations Respiratory Rate: 14 - Blood Pressure Blood Pressure: 118/57 - Comments Comment: Client is 26 weeks and requested BP check to report to her [employer] TECH[employer] LEAD.
--- NOTE | 2017-12-29 14:34 | BH.SGPN ---
Service Group Progress Note - Session Psychotherapy Session #2 Date Open:: 12/29/17 Time Started:: 10:30 Time Stopped:: 11:20 Targeted Problem #:: 1 Type of Group:: Illness Management Eye Contact:: Good Motor Activity:: Appropriate Appearance:: Casual Speech:: Appropriate Mood:: Dysthymic Affect:: Congruent Thoughts:: Linear, Logical, No evidence of hallucinations/delusions noted Psychotherapy Session #3 Date Open:: 12/29/17 Time Started:: 11:30 Time Stopped:: 12:20 Targeted Problem #:: 1 Type of Group:: Functional Skills Development Eye Contact:: Good Motor Activity:: Appropriate Appearance:: Casual Speech:: Appropriate Mood:: Dysthymic Affect:: Congruent Thoughts:: Linear, Logical, No evidence of hallucinations/delusions noted
[2017-12-29 14:52] VITALS: BP 118/57; PULSE 72; RESP 14
--- NOTE | 2017-12-29 15:03 | BH.NA_ITS ---
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
--- NOTE | 2017-12-29 15:12 | BH.SGPN ---
Service Group Progress Note - Session Psychotherapy Session #1 Date Open:: 12/29/17 Time Started:: 09:05 Time Stopped:: 10:16 Targeted Problem #:: 1 Type of Group:: Process - 7 participants Staff Interventions:: Therapist used open-ended questions to elicit information about client's current stressors and mood state. Therapist reviewed homework assigned from previous groups. Therapist was supportive by using active listening and reflection.
== END 2017-12-30 23:59 ==
LOC: BHIOP 09:00
PROVIDERS: Family Provider Internal Medicine; PCP Internal Medicine; Visit Provider Psychiatry & Neurology Psychiatry
DX: F33.9 Major depressive disorder, recurrent, unspecified (principal); F41.9 Anxiety disorder, unspecified; E55.9 Vitamin D deficiency, unspecified
CPT/HCPCS: 90833; 90836; 99214; H0035; H2012; H2020; 90832; 90834

== ENCOUNTER 2017-12-30 14:10 | Outpatient (CLI) | payer MEDICAID, SELFPAY ==
[2017-12-30 14:29] VITALS: BMI 31.0
[2017-12-30] MEDS: Dextrose 5%-Lactated Ringers 1,000 ML 500 ML IV (14:42)
[2017-12-30] MEDS: Ondansetron 4 MG/2 ML Vial IV (14:45)
[2017-12-30 14:47] LABS: Mucous, Urine 0 SEEN /hpf (<or=2+); Red Blood Cells-Urine 0 SEEN /hpf (0-5)
[2017-12-30] MEDS: proMETHazine 25 MG/ML Syringe 12.5 MG IV (14:48)
[2017-12-30 14:50] LABS: Color, Urine Yellow (Yellow); Glucose, Dipstick Normal (Normal); Ketone-Dipstick Negative (Negative); Leukocyte Esterase-Dipstick 500 /ul (Negative); Nitrite-Dipstick Negative (Negative); Occult Blood-Urine Negative /ul (Negative); Protein-Dipstick Negative (Negative); Urine Bilirubin Dipstick Negative (Negative); Urine Clarity Clear (Clear); Urine Urobilinogen Normal (Normal)
[2017-12-30 14:53] LABS: Hematocrit 33.5 % (37-47); Hemoglobin 11.3 g/dl (12.0-15.0); Mean Corp Hgb Conc 33.7 g/gl (32-36); Mean Corpuscular Hgb 29.1 pg (27.0-32.0); Mean Corpuscular Volume 86.3 fL (81-99); Mean Platelet Vol. 8.9 fl (6.2-12.0); Platelet Count 299 K/mm3 (150-450); RBC Distribution Width CV 13.2 % (11.6-14.6); RBC Distribution Width SD 41.1 fl (35.1-43.9); Red Blood Count 3.88 M/mm3 (4.2-5.4); White Blood Count 8.2 K/mm3 (4.4-11.0)
[2017-12-30 15:04] LABS: Scan Indicated on CBC? Y/N NO
[2017-12-30 15:06] LABS: Bacteria 2+ /hpf (None Seen); Squamous Epithelial Cells - UA 5-10 SEEN /hpf (5-10); White Blood Cells 0-5 SEEN /hpf (0-5)
[2017-12-30 15:19] LABS: ALB/GLOB Ratio 0.6 RATIO (0.9-2.4); AST(SGOT) 49 U/L (15-37); Alanine Aminotransfer ALT/SGPT 66 U/L (13-56); Albumin, Serum 2.5 g/dL (3.2-5.0); Alkaline Phosphatase 63 U/L (45-117); Anion Gap 9 (5-15); BUN 4 mg/dL (7-18); BUN/Creat Ratio 9.8 RATIO (10-20); Calcium,Total 7.8 mg/dL (8.5-10.1); Chloride 109 mmol/L (98-107); Creatinine, Serum 0.41 mg/dL (0.55-1.02); EST Glomerular Filtration Rate 200 mL/min (>60); Est Glom Filt Rate - Afr Amer 242 mL/min (>60); Globulin 4.1 g/dL (2.2-4.2); Glucose 87 mg/dL (74-106); Potassium 3.6 mmol/L (3.5-5.1); Protein, Total 6.6 g/dL (6.4-8.2); Sodium Level 140 mmol/L (136-145)
--- NOTE | 2017-12-30 15:38 | US_ITS ---
STUDY: ABDOMINAL ULTRASOUND - RIGHT UPPER QUADRANT REASON FOR VISIT: Female, 27 years old. Right upper quadrant pain TECHNIQUE: Ultrasound evaluation of the right upper quadrant was performed with real-time and static mart-scale imaging. TECHNICAL QUALITY: Adequate. COMPARISON: None. FINDINGS: Liver: The liver measures 17.9 cm cm. There is normal echogenicity of the liver. The bile ducts are within normal limits. There is hepatic color flow. The direction of portal flow is hepatopetal. Gallbladder: Normal distended gallbladder. The gallbladder wall measures 2 mm. There is a negative sonographic Nicholson's sign. There is no pericholecystic fluid. Gallstones identified measuring approximately 1.6 cm Common Bile Duct (C.B.D.): The common bile duct measures 3 mm. Pancreas: not well visualized Right Kidney: Mild prominence of the right renal pelvis US/Abdomen Limited IMPRESSION: Hepatomegaly. Cholelithiasis Mild right-sided hydronephrosis suspected Electronically Signed: Jean-Paul March, at 16:35 EDT Tel , Service support ,
[2017-12-30 16:49] LABS: Amylase 49 U/L (25-115); Lipase 132 U/L (73-393)
--- NOTE | 2017-12-31 17:45 | OB.TRI.NOTE ---
History of Present Illness Date of Service: 12/30/17 Reason For Visit: R/O PREECLAMPSIA Date of Service: 12/30/17 Final MAGI: 04/11/18 Gestational age: 25 Weeks and 4 Days History of Present Illness: 27 y o @ 25w3d presents with nausea, vomiting and some abdominal discomfort. she denies any vaginal bleeding or loss of fluid. she admits good fm and denies any contractions Home Medications Medication Instructions Recorded promethazine 12.5 mg tablet 12.5 mg PO Q6H PRN #90 tab 09/08/17 valacyclovir 500 mg tablet 500 mg PO QDAY #30 tab 09/08/17 Vit Calc,Iron,Folic 1 ea PO DAILY 11/24/17 [ Vitamins] citalopram 20 mg tablet 20 mg PO QDAY #30 tab 12/07/17 Cholecalciferol (Vitamin D3) 4,000 unit PO DAILY 12/15/17 [Vitamin D3] Allergies dicloxacillin Allergy (Mild, Verified 12/30/17 14:28) Other watermelon Allergy (Mild, Verified 12/30/17 14:28) Other - Pertinent Past Medical History Pertinent Past Medical History: negative- reviewed Physical Exam General: Alert Cardiovascular: Regular rate Lungs: Normal air movement Abdomen: Soft, Non Tender, Gravid NST - FHR Rate Baby A Baseline: 150 Variability:: Moderate Accelerations:: 10 x 10 Decelerations:: None NST Reactive:: Yes FHR Category:: Category I Uterine Activity:: no regular Impression/Plan 27 yo at 25w3d with nausea vomiting. ivfs and anti emetics given- mildly elevated liver enzymes, ordered RUQ us and additional hepatitis testing and lab work. fu in office. reactive NST for gestational age
[2018-01-02 08:09] LABS: HEPATITIS B SURFACE AG Negative (Negative); Hepatitis A IgM Antibody Negative (Negative); Hepatitis B Core AB IgM Negative (Negative)
[2018-01-02 14:33] LABS: Hep C Antibodies <0.1 s/co ratio (0.0-0.9)
== END 2017-12-30 16:25 | disposition home or self-care (01) ==
LOC: WPOUT 14:19 → WP 14:20
PROVIDERS: Family Provider Internal Medicine; PCP Internal Medicine; Visit Provider Obstetrics & Gynecology
DX: O21.2 Late vomiting of pregnancy (principal); R74.8 Abnormal levels of other serum enzymes; Z79.899 Other long term (current) drug therapy
CPT/HCPCS: 96361; 96374; 96375; 36415; 59025; 59050; 76705; 80053; 80074; 81001; 82150; 83690; 85027; 99218; G0378; J2405

== ENCOUNTER 2018-01-02 09:00 | Outpatient (RCR) | payer MEDICAID, SELFPAY ==
[2017-12-31 01:01] VITALS: PULSE 72; RESP 14
--- NOTE | 2018-01-02 14:28 | BH.SGPN ---
Service Group Progress Note - Session Psychotherapy Session #2 Date Open:: 01/02/18 Time Started:: 10:20 Time Stopped:: 11:20 Targeted Problem #:: 1 Type of Group:: Illness Management - 7 group members Goal of Group:: To increase understanding and awareness of emotions connected to change and the impact those emotions can have on change. Client Response/Progress/Benefit:: Client listened attentively to others and contributed to discussion at times. Client shared she just into the OB doctor and found out that her liver is swollen so she is feeling a bit stressed this morning. Client connected with several to factors that can help people back from making change including comfort zone and lacking motivation. Client reports she learned from going over the process of change that cannabis can lead to change. Seemed to benefit from reviewing the positive changes identified how emotions can impact change positively or negatively. Eye Contact:: Fair Motor Activity:: Appropriate Appearance:: Casual Speech:: Appropriate Mood:: Anxious, Irritable Affect:: Constricted Thoughts:: Linear, Logical, No evidence of hallucinations/delusions noted Staff Interventions:: Therapist facilitated group discussion about change. Therapist led the group in an activity in which the activity was utilized as a tool to increase clients awareness of emotions connected with change. Therapist led the processing of how each emotion was connected with change. Therapist provided psychoeducation process of change, helped group members apply it to their life. Therapist was supportive by providing feedback and using reflective listening. Psychotherapy Session #3 Date Open:: 01/02/18 Time Started:: 11:30 Time Stopped:: 12:20 Targeted Problem #:: 1 Type of Group:: Functional Skills Development - 6 group members Goal of Group:: To identify the challenges associated with making change and identify positive outcomes that have resulted from changes made in past. Client Response/Progress/Benefit:: Client contributed to discussion and listened attentively to others. During challenge activity client worked cooperatively with others and able to connect the importance of utilizing supports and communicating when it comes to adapting to change. Client identified a positive change that she is made as leaving her social media count because she recognizes it was only making her more frustrated. Reported to her a lot of time before she decided to make this change but recognizes now she is more free time as well as is not getting unnecessarily upset over things said on social media. Client identified she plans to use this topic in her daily life by not allowing chaos to always be negative and letting her her support people help her. She will benefit from group brainstorming very strategies that can help with managing change. Eye Contact:: Fair Motor Activity:: Appropriate Appearance:: Casual Speech:: Appropriate Mood:: Anxious, Irritable Affect:: Constricted Thoughts:: Linear, Logical, No evidence of hallucinations/delusions noted Staff Interventions:: Therapist led group in an activity to help group members recognize the challenges associated with change. Therapist utilized activity as a tool to identify ways to manage changes and adapt to the challenges that ensue. Therapist facilitated group discussion about positive outcomes from change.
--- NOTE | 2018-01-03 11:34 | BH.SGPN ---
Service Group Progress Note - Session Psychotherapy Session #1 Date Open:: 18 - 8 participants Time Started:: 09:03 Time Stopped:: 10:10 Targeted Problem #:: 1 Type of Group:: Process Goal of Group:: The goal of today's group was to check-in with client's mood, stressors, and positives, and review homework. Client Response/Progress/Benefit:: Client entered session alert and oriented, active participant and receptive to support from peers. Client reports feeling anxious today as client has received a lot of news about her health and is unsure about the cause of some of her symptoms. Client shared she has been in a lot of pain due to an inflamed liver and gallbladder stones. Client stated she will need to get her gallbladder removed after giving this summer. Client reported I'm trying to stay calm through using healthy coping skills as listening to music, painting the baby's room, and spending time with her daughter. With therapist elicitation, client recognized it is important to challenge negative thoughts as well. Client reported having her first outpatient counseling appointment today at [facility] and received positive feedback from a peer who has utilized services there as well. Client appeared to benefit from gaining positive feedback and by identifying healthy coping skills to manage anxiety. Client seems to be progressing as shown by her generalization of coping skills, but can continue to benefit from challenging negative thoughts. Eye Contact:: Fair Motor Activity:: Appropriate Appearance:: Disheveled Speech:: Appropriate Mood:: Anxious Affect:: Constricted Thoughts:: Linear, No evidence of hallucinations/delusions noted Staff Interventions:: Therapist used open-ended questions to elicit information about client's current stressors and mood state. Therapist was supportive by using active listening and reflection.
--- NOTE | 2018-01-05 15:07 | BH.MDN ---
Multi-Disciplinary Note - Note 30-min Individual Time Started:: 12:15 Date: 01/05/18 Eye Contact:: Good Motor Activity:: Appropriate Appearance:: Casual Speech:: Appropriate Mood:: Euthymic Affect:: Congruent Thoughts:: Linear, Logical, No evidence of hallucinations/delusions noted Time Stopped:: 12:50
--- NOTE | 2018-01-05 16:10 | BH.SGPN ---
Service Group Progress Note - Session Psychotherapy Session #1 Date Open:: 01/05/18 Time Started:: 09:00 Time Stopped:: 10:00 Type of Group:: Process - 9 group members Goal of Group:: The goal of today's group was to check-in with client's mood, stressors, and positives, review homework and introduce topic for the day. Client Response/Progress/Benefit:: Pt was an active participant in group and provided feedback when appropriate. Shared with the group that her emotion today is frustrated. Reports that she was overwhelmed yesterday with her daughter however was able to manage the situation. Pt was shopping with daughter and was unable to get her daughter to comply. She also discussed some other stressors related to day to day life which esculated her irritability and her MH symptoms. Did not utilize coping skills. Choose to sleep to manage emotions which per her did work. Group provided support and encouragement with pt benefited from. Regression noted due to reverting to sleep as a means to cope with stressors. Will continue in IOP to prevent further decompensation. Eye Contact:: Fair Motor Activity:: Appropriate Appearance:: Disheveled Speech:: Appropriate Mood:: Anxious, Irritable, Depressed Affect:: Congruent Thoughts:: Linear, Logical, No evidence of hallucinations/delusions noted Staff Interventions:: Therapist used open-ended questions to elicit information about client's current stressors and mood state. Therapist was supportive by using active listening and reflection.
--- NOTE | 2018-01-09 14:30 | BH.SGPN_ITS ---
Service Group Progress Note - Session Psychotherapy Session #2 Date Open:: 01/09/18 - participants Time Started:: 10:17 Time Stopped:: 11:12 Targeted Problem #:: 1 Type of Group:: Illness Management Goal of Group:: To identify within self what is keeping client trapped from achieving better quality of life. Client Response/Progress/Benefit:: Client responded well to session, active participant. Client connected with the topic stating, ?I can use the maintenance cycle to watch for warning signs.? Client reported she is currently doing well and has reduced symptoms, but in the past her negative thinking has kept client stuck. Client shared ?it?s scary to think about the thoughts again? but with gently challenging, client recognized the importance self-awareness to promote proactive coping. Client identified her top negative thoughts to be ?I? m a bad mom, nobody cares, and I?ll never get better.? Client appeared to benefit from learning about her cycle of depression and anxiety so client can continue to challenge negative thoughts. Eye Contact:: Good Motor Activity:: Appropriate Appearance:: Casual Speech:: Appropriate Mood:: Euthymic Affect:: Constricted Thoughts:: Linear, No evidence of hallucinations/delusions noted Staff Interventions:: Therapist facilitated discussion about what is keeping client?s stuck from moving toward mental wellness. Therapist assisted clients in connecting how thoughts can contribute to keeping clients stuck. Therapist led discussion about barriers clients face from making changes to help one move forward. Therapist provided support by using active listening and giving feedback to others. Psychotherapy Session #3 Date Open:: 01/09/18 - participants Time Started:: 11:18 Time Stopped:: 12:20 Targeted Problem #:: 1 Type of Group:: Functional Skills Development Goal of Group:: To identify what client can do to release self from those things that are trapping them to find more peace and quality in everyday life. Client Response/Progress/Benefit:: Client responded well to session, active in discussion. Client selected ?I?m a bad mom? to challenge. Client shared the thought is unrealistic as there is ?no evidence I?m a bad mom.? Client stated when she thinks negative she begins to isolate, sleep more, and stop trying which increases depression and anger. Client challenged and reframed her thought stating ?I am a good mom and sometimes I have struggles.? Client stated the reframed thought would help her be more present and increase her positive thinking. Client appeared to benefit from reminding herself of the different ways to challenge negative thinking. Progress noted as client reports reduced depression and increased self-confidence. Eye Contact:: Good Motor Activity:: Appropriate Appearance:: Casual Speech:: Appropriate Mood:: Euthymic Affect:: Full Thoughts:: Linear, No evidence of hallucinations/delusions noted Staff Interventions:: Therapist used examples of maintenance cycles to help clients gain awareness of how negative thinking is keeping clients stuck. Therapist facilitated discussion about different strategies for challenging negative thoughts, assisting clients in connecting how the strategies could benefit them. Therapist provided clients with homework to focus on one thing that is keeping them stuck and identify small steps to start moving towards mental wellness.
--- NOTE | 2018-01-09 17:13 | BH.SGPN ---
Service Group Progress Note - Session Psychotherapy Session #1 Date Open:: 01/09/18 Time Started:: 09:05 Time Stopped:: 10:08 Targeted Problem #:: 1 Type of Group:: Process - 6 Group members Goal of Group:: The goal of today's group was to check-in with client's mood, stressors, and positives, review homework and introduce topic for the day. Client Response/Progress/Benefit:: Client reported over the weekend she stopped drinking caffeine and her pain in her stomach and decreased immensely. Client shared she did get coffee this morning but chose to get a smaller size because yesterday she was having a really bad headache. Client reported she is more open to reducing how much caffeine she takes throughout the day because she rather not be in pain. Client reported her weekend was really good because she was extremely productive at the house with getting various task completed. Client shared she is also really social by hanging out with her family and getting out of the house to go to dinner. Client demonstrating progress as evidenced by him reporting decreased depressive symptoms, getting out of the house, and continuing to utilize her healthy coping strategies. Eye Contact:: Good Motor Activity:: Appropriate Appearance:: Casual Speech:: Appropriate Mood:: Euthymic Affect:: Congruent Thoughts:: Linear, Logical, No evidence of hallucinations/delusions noted Staff Interventions:: Therapist used open-ended questions to elicit information about client's current stressors and mood state. Therapist was supportive by using active listening and reflection.
--- NOTE | 2018-01-10 11:18 | BH.SGPN ---
Service Group Progress Note - Session Psychotherapy Session #1 Date Open:: 01/10/18 Time Started:: 09:08 Time Stopped:: 10:08 Targeted Problem #:: 1 Type of Group:: Process Goal of Group:: The goal of today's group was to check-in with client's mood, stressors, and positives, review homework and introduce topic for the day. Client Response/Progress/Benefit:: Client attentive and actively engaged in session. She discussed having tried to give up coffee over the weekend as she has found that her Gallstones become agitated when she drinks it. CLient went on to share being unsuccessful in doing so as the lack of caffiene resulted in worsening headaches. Client shared feeling frustrated by her current medical complications and is growing impatient in maiting to discover what may be contributing to the increased swelling she is also experiencing. Client benefitted from reflecting upon the progress she has made in terms of her mental health and noted beliefs that she would have experienced much more anxiety related to current medical complications prior to gaining the awareness and emotion regulatio skills she has learned in the IOP program. CLient scheduled for discharge this monday, 01/12, and indicates feeling bittersweet about this but knows that successful discharge means she has made progress. Eye Contact:: Good Motor Activity:: Appropriate Appearance:: Casual Speech:: Appropriate Mood:: Euthymic Affect:: Full Thoughts:: Linear, Logical, No evidence of hallucinations/delusions noted Staff Interventions:: Therapist used open-ended questions to elicit information about client's current stressors and mood state. Therapist was supportive by using active listening and reflection.
--- NOTE | 2018-01-11 12:35 | BH.SGPN_ITS ---
Service Group Progress Note - Session Psychotherapy Session #2 Date Open:: 01/10/18 Time Started:: 10:15 Time Stopped:: 11:15 Targeted Problem #:: 1 Type of Group:: Illness Management Goal of Group:: The goal of today?s group is to identify how emotions can impact our communication skills, and why it is important to be able to communicate in stressful situations. Client Response/Progress/Benefit:: Pt contributed positively to discussion and listened attentively to others. Pt reported managing her emotions is important for her relationships and her mental health. Pt reported when her emotions are elevated she sometimes doesn't make the best decisions. Pt shared emotions can result in miscommunications. When processing activity pt connected importance of using coping skills in the moment to help manage emotions prior to responding or communicating this way one doesn't impulsively react to the situation. Pt seemed to benefit from discussion about impact dysregulated emotions can have on mental health and relationships. Eye Contact:: Good Motor Activity:: Appropriate Appearance:: Casual Speech:: Appropriate Mood:: Euthymic Affect:: Congruent Thoughts:: Linear, Logical, No evidence of hallucinations/delusions noted Staff Interventions:: Therapist led an experiential activity where group members worked together for a common goal, but with adaptations made on how members were able to communicate with one another. Therapist used open-ended questions to elicit group discussion about emotions which arose during activity , as well as identifying how emotions experienced impacted ability to communicate effectively with other group members. Psychotherapy Session #3 Date Open:: 01/10/18 Time Started:: 11:30 Time Stopped:: 12:20 Targeted Problem #:: 1 Type of Group:: Functional Skills Development Goal of Group:: The goal of todays group was to increase awareness of different states of alertness attached to emotions and identifying healthy coping strategies for each state of alertness. Client Response/Progress/Benefit:: Pt engaged and active throughout group session. Pt able to identify specific emotions for the different emotional zones. Pt identified she used to live in the low alertness zone. Pt recognized it makes sense she struggled with fucntioning when constantly in the low alertless zone. Seemed to benefit from group brainstorm of different coping skills to help with getting into the desired zone of alertness. Eye Contact:: Good Motor Activity:: Appropriate Appearance:: Casual Speech:: Appropriate Mood:: Euthymic Affect:: Congruent Thoughts:: Linear, Logical, No evidence of hallucinations/delusions noted Staff Interventions:: Therapist facilitated group by teaching about the 4 zones of different states of alertness and helping clients connect emotions to each zone based on state of alertness. Therapist assisted clients with identifying healthy coping strategies that would be best utilized based on the state of alertness. Therapist provided support by using active listening and providing feedback.
--- NOTE | 2018-01-12 11:00 | BH.AFTERPLAN ---
Aftercare Plan - Demographics Treatment End Date:: 01/12/18 Psychiatrist:: Esthela Garcia Psychiatrist Office #:: [phone] [facility] Therapist:: Lesly Muniz Therapist Phone #:: [phone] - Medications Home Medications: Home Medications promethazine 12.5 mg tablet 12.5 mg PO Q6H PRN #90 tab 09/08/17 valacyclovir 500 mg tablet 500 mg PO QDAY #30 tab 09/08/17 Vit Calc,Iron,Folic [ Vitamins] 1 ea PO DAILY 11/24/17 citalopram 20 mg tablet 20 mg PO QDAY #30 tab 12/07/17 Cholecalciferol (Vitamin D3) [Vitamin D3] 4,000 unit PO DAILY 12/15/17 ondansetron HCl 4 mg tablet 4 mg PO Q4H #60 tab 01/02/18 - Plan Details Progress/Aftercare Plan Details:: You have shown consistent progress thoughout your time in [facility]! You have improved your self-awareness into your thought patterns, recognizing what thoughts are unhelpful and being able to challenge those thoughts. You have progressed with consistently using healthy coping strategies even when there were several stressors that occurred while in [facility]. You have followed through with suggested aftercare and now have a plan in place for continued help and support. You recognize the importance of addressing problems and emotions, versus isolating or avoiding. You have shown resilience through the many hardships you have experienced and remember how important it is to keep up with the healthy skills and strategies. Aftercare plan: Follow up with [facility] Whitehead for weekly counseling, [facility] for case management and schedule with counseling center for psychiatry before you are done seeing Dr. Gonzales to ensure there is no gap in care. Strategies for Success:: 1. Continue to recognize negative thoughts and reframe those distorted and unhelpful thoughts. 2. Be mindful! 5 senses, earthing, and other grounding techniques to bring you back in the moment. 3. Communication, Communication, Communication!!!! Others can't read your mind, it's important to let others know what is going on. 4. Self-care; remember to take care of you! 5. Get out of the house - isolation doesn't help. 6. Continue to do the things that you enjoy: painting, gardening, and being outside. 7. Hang out with your friends! Socialize your friends are positive and helpful, if you let them be there for you. 8. Review IOP binder for a refresher. 9. Follow up with your counseling!!!!!! - Appointments Appointments/Referrals to Other Services:: 1. Dr. Gonzales - medication management 01/12/18 at 2:40pm. 2. Krys Whitehead at [facility] - counseling on 01/17/18 at 1pm. 3. Will follow up with Krys to schedule case mangement.
--- NOTE | 2018-01-12 13:05 | BH.IGGP_ITS ---
Aftercare Plan - Demographics Treatment End Date:: 01/12/18 Psychiatrist:: Esthela Garcia Psychiatrist Office #:: [phone] [facility] Therapist:: Lesly Muniz Therapist Phone #:: [phone] - Medications Home Medications: Home Medications promethazine 12.5 mg tablet 12.5 mg PO Q6H PRN #90 tab 09/08/17 valacyclovir 500 mg tablet 500 mg PO QDAY #30 tab 09/08/17 Vit Calc,Iron,Folic [ Vitamins] 1 ea PO DAILY 11/24/17 citalopram 20 mg tablet 20 mg PO QDAY #30 tab 12/07/17 Cholecalciferol (Vitamin D3) [Vitamin D3] 4,000 unit PO DAILY 12/15/17 ondansetron HCl 4 mg tablet 4 mg PO Q4H #60 tab 01/02/18 - Plan Details Progress/Aftercare Plan Details:: You have shown consistent progress thoughout your time in [facility]! You have improved your self-awareness into your thought patterns, recognizing what thoughts are unhelpful and being able to challenge those thoughts. You have progressed with consistently using healthy coping strategies even when there were several stressors that occurred while in [facility]. You have followed through with suggested aftercare and now have a plan in place for continued help and support. You recognize the importance of addressing problems and emotions, versus isolating or avoiding. You have shown resilience through the many hardships you have experienced and remember how important it is to keep up with the healthy skills and strategies. Aftercare plan: Follow up with [facility] White[facility] for weekly counseling, [facility] for case management and schedule with counseling center for psychiatry before you are done seeing Dr. Ellen Buckley to ensure there is no gap in care. Strategies for Success:: 1. Continue to recognize negative thoughts and reframe those distorted and unhelpful thoughts. 2. Be mindful! 5 senses, earthing, and other grounding techniques to bring you back in the moment. 3. Communication, Communication, Communication!!!! Others can't read your mind, it's important to let others know what is going on. 4. Self-care; remember to take care of you! 5. Get out of the house - isolation doesn't help. 6. Continue to do the things that you enjoy: painting, gardening, and being outside. 7. Hang out with your friends! Socialize your friends are positive and helpful, if you let them be there for you. 8. Review IOP binder for a refresher. 9. Follow up with your counseling!!!!!! - Appointments Appointments/Referrals to Other Services:: 1. Dr. Gonzales - medication management 01/12/18 at 2:40pm. 2. Krys Whitehead at [facility] - counseling on at 1pm. 3. Will follow up with Krys to schedule case mangement.
--- NOTE | 2018-01-12 15:37 | BH.SGPN ---
Service Group Progress Note - Session Psychotherapy Session #2 Date Open:: 01/12/18 - 8 group members Time Started:: 10:27 Time Stopped:: 11:20 Targeted Problem #:: 1 Type of Group:: Illness Management Goal of Group:: To increase understanding of resilience and identify the factors that contribute to building resilience. Client Response/Progress/Benefit:: Client responded well to session, active participant. Client appeared to connect with the quote stating, life is ever changing and its much easier to be resilient than rigid. Client reported belief we are both born resilient and learn how to be resilient. Client discussed the four dimensions of resiliency, mental, emotional, physical, and spiritual. Client stated it is important to balance all the dimensions to promote mental wellness. Client helped the group discuss the factors of resiliency such as goal setting, basic needs, hope and optimism, and self-confidence. Client reported you have to have your need met to be resilient. Client appeared to benefit from increasing awareness of the factors of resilience. Client progressing with challenging negative thoughts and improved outlook on managing stressors. Eye Contact:: Good Motor Activity:: Appropriate Appearance:: Neat - hair straightened Speech:: Appropriate Mood:: Euthymic Affect:: Full Thoughts:: Linear, No evidence of hallucinations/delusions noted Staff Interventions:: Therapist led group in an activity that would induce a chaotic environment and used the activity as a tool in discussing the various stressors people are faced with each day. Therapist facilitated group discussion about resilience and explained the factors of building resilience. Therapist led discussion about factors that contribute to resilience. Therapist provided support by using active listening and providing feedback. Psychotherapy Session #3 Date Open:: 01/12/18 - 8 group members Time Started:: :27 Time Stopped:: 12:25 Targeted Problem #:: 1 Type of Group:: Functional Skills Development Goal of Group:: To rehearse resilient factors and identify ways to maintain resilience despite hardships and stressors. Client Response/Progress/Benefit:: Client responded well to session, providing helpful input to discussion. Client shared group today helped client learn strategies to continue getting better and maintain resilience such as goal setting, trusting herself, using acceptance, and being realistic. Client identified her personal resiliency traits to be seeing humor in tough situations, thinking positive, and being accepting of change. Client shared she plans to increase her resilience by trusting myself and starting each day with gratitude. Client appeared to benefit from increasing awareness of traits client possesses that make her resilient as well as reflecting on progress. Clients last day in IOP, reports reduced depression and increased ability to cope with stressors. Eye Contact:: Good Motor Activity:: Appropriate Appearance:: Neat Speech:: Appropriate Mood:: Euthymic Affect:: Full Thoughts:: Linear, No evidence of hallucinations/delusions noted Staff Interventions:: Therapist led group in an activity in which group members were challenged to stay resilient despite various stressors and hardships added to activity. Therapist provided each group member with a stress ball and used stress ball as a tool to discuss factors of resilient personality. Therapist provided group members with a handout about the building blocks of resilience. Therapist provided support by using reflective listening.
--- NOTE | 2018-01-12 15:41 | BH.SGPN_ITS ---
Service Group Progress Note - Session Psychotherapy Session #2 Date Open:: 01/12/18 - 8 group members Time Started:: :27 Time Stopped:: 11:20 Targeted Problem #:: 1 Type of Group:: Illness Management Goal of Group:: To increase understanding of resilience and identify the factors that contribute to building resilience. Client Response/Progress/Benefit:: Client responded well to session, active participant. Client appeared to connect with the quote stating, ?life is ever changing and it?s much easier to be resilient than rigid.? Client reported belief we are both born resilient and learn how to be resilient. Client discussed the four dimensions of resiliency, mental, emotional, physical, and spiritual. Client stated it is important to balance all the dimensions to promote mental wellness. Client helped the group discuss the factors of resiliency such as goal setting, basic needs, hope and optimism, and self- confidence. Client reported ?you have to have your need met to be resilient.? Client appeared to benefit from increasing awareness of the factors of resilience. Client progressing with challenging negative thoughts and improved outlook on managing stressors. Eye Contact:: Good Motor Activity:: Appropriate Appearance:: Neat - hair straightened Speech:: Appropriate Mood:: Euthymic Affect:: Full Thoughts:: Linear, No evidence of hallucinations/delusions noted Staff Interventions:: Therapist led group in an activity that would induce a chaotic environment and used the activity as a tool in discussing the various stressors people are faced with each day. Therapist facilitated group discussion about resilience and explained the factors of building resilience. Therapist led discussion about factors that contribute to resilience. Therapist provided support by using active listening and providing feedback. Psychotherapy Session #3 Date Open:: 01/12/18 - 8 group members Time Started:: : Time Stopped:: 12:25 Targeted Problem #:: 1 Type of Group:: Functional Skills Development Goal of Group:: To rehearse resilient factors and identify ways to maintain resilience despite hardships and stressors. Client Response/Progress/Benefit:: Client responded well to session, providing helpful input to discussion. Client shared group today helped client learn strategies to continue getting better and maintain resilience such as goal setting, trusting herself, using acceptance, and being realistic. Client identified her personal resiliency traits to be seeing humor in tough situations , thinking positive, and being accepting of change. Client shared she plans to increase her resilience by ?trusting myself and starting each day with gratitude.? Client appeared to benefit from increasing awareness of traits client possesses that make her resilient as well as reflecting on progress. Client?s last day in IOP, reports reduced depression and increased ability to cope with stressors. Eye Contact:: Good Motor Activity:: Appropriate Appearance:: Neat Speech:: Appropriate Mood:: Euthymic Affect:: Full Thoughts:: Linear, No evidence of hallucinations/delusions noted Staff Interventions:: Therapist led group in an activity in which group members were challenged to stay resilient despite various stressors and hardships added to activity. Therapist provided each group member with a stress ball and used stress ball as a tool to discuss factors of resilient personality. Therapist provided group members with a handout about the building blocks of resilience. Therapist provided support by using reflective listening.
--- NOTE | 2018-01-12 15:56 | BH.MDN ---
Multi-Disciplinary Note - Note 30-min Individual Time Started:: 12:30 Date: 01/12/18 Purpose of session/treatment goals addressed:: Purpose of session was to discuss progress, identify strategies for success, and solidfy aftercare plan. Eye Contact:: Good Motor Activity:: Appropriate Appearance:: Neat Speech:: Appropriate Mood:: Euthymic Affect:: Congruent Thoughts:: Linear, Logical, No evidence of hallucinations/delusions noted Staff Interventions:: Therapist used open ended questions to elicit pt's current thoughts and ideas. Therapist elicited pt's thoughts about treatment progress since she has started IOP. Therapist collaborated with pt to identify strategies that can help her maintain success. Therapist confirmed aftercare plans for follow up for pt. Client Response:: Pt reported she has made a lot of progress since starting IOP. Pt shared she is better able at managing her depressive and anxious symptoms. Pt reported she has increased awareness of her negative and distorted thought patterns and is able to challenge those thoughts much easier. Pt shared she has decreased her isolation by getting out of the house more frequently and being more willing to connect with her friends instead of avoid them. Pt reported she has been able to get through various stressors without going back to a deep depression. Pt able to identify several strategies that can help her maintain success including: self-awareness, challenging thoughts, getting out of house, communicating with supports, being mindful, and following up with aftercare plans. Pt confirmed she will continue to follow up with Dr. Gonzales for medication management and once she delivers her baby she will go back to the counseling center for psychiatry. Pt also confirmed she will continue to see her outpatient counselor at [facility] and set up case management appointments. Risks/Concerns:: Pt denies suicidal thoughts, plan or intention to date. Future focused and positive. Progress Toward Goals/Plan:: Pt has demonstrated progress with decreased depressive and anxoius symptoms. Pt has made significant progress on her treatment goals and no longer meets medical necessity for [facility] level of care. Pt will be discharged from [facility] today and is encouraged to follow up with aftercare plans. Time Stopped:: 13:00
--- NOTE | 2018-01-12 16:05 | BH.SGPN ---
Service Group Progress Note - Session Psychotherapy Session #1 Date Open:: 01/12/18 Time Started:: 09:05 Time Stopped:: 10:20 Targeted Problem #:: 1 Type of Group:: Process - 7 group members Goal of Group:: The goal of today's group was to check-in with client's mood, stressors, and positives, review homework and introduce topic for the day. Client Response/Progress/Benefit:: Client reported yesterday she had a good day because she does a lot of things outside the house and things that she enjoys doing. Client reported she went to the garden to work which she identified is something that really is relaxing and allows her to be in the moment. Client identified she also spent time with family outside of the home and was just productive throughout the day. Client shared she is happy but yet sad at the same time that today is her last day because she made a lot of connections and has made a lot of progress but is going to miss having the group to attend. Client shared she is proud of herself for following through with aftercare by attending her outpatient counseling sessions which is something the past she never did. Client demonstrated significant progress since entering [facility] as evidenced by her reporting decreased depressive and anxious symptoms as well as consistent utilization of healthy coping strategies and following through with aftercare plans. Client will be discharged from [facility] today. Eye Contact:: Good Motor Activity:: Appropriate Appearance:: Neat Speech:: Appropriate Mood:: Euthymic Affect:: Congruent Thoughts:: Linear, Logical, No evidence of hallucinations/delusions noted Staff Interventions:: Therapist used open-ended questions to elicit information about client's current stressors and mood state. Therapist was supportive by using active listening and reflection.
--- NOTE | 2018-01-12 16:52 | BH.DS ---
Discharge Summary - Demographics Date of Admission:: 11/21/17 Discharge Date: 01/12/18 Presenting Problems at Admission:: Patient presented to [facility] for evaluation and treatment of depression and anxiety. Pt symptoms had worsened since October after her uncle completed suicide. Her depression again worsened prior to admission due to her grandmother's health decline and her grandmother being placed in hospice. She endorsed depression with a dark mood anhedonia, decreased energy, difficulty concentrating. Pt reported ruminative anxiety about anything I cannot control. Discharge Diagnoses:: Major depressive disorder recurrent moderate. Anxiety unspecified. Remote history disordered eating Reason for Discharge:: Pt has made significant progress on her treatment goals. Pt no longer meets medical necessity for intensive level of care. - Treatment Progress During Treatment & Response: Pt has improved self-awareness into thought patterns, recognizing what thoughts are unhelpful and being able to challenge those thoughts. Pt has progressed with consistently using healthy coping strategies even when there were several stressors that occurred while in IOP. Pt has followed through with suggested aftercare and now has a plan in place for continued help and support. Pt recognizes importance of addressing problems and emotions, versus isolating or avoiding. Pt has shown resilience through the many hardships she has experienced. Pt responded well to treatment as evidenced by her engagement in both group and individual treatment. Pt was often actively engaged sharing her thoughts and ideas with group. Pt completed homework assignments and worked on skills learned outside of [facility]. Issues Still to be Addressed:: Pt could benefit from continued reinforcement of healthy coping strategies. Pt also could benefit from grief counseling understanding common reactions to grief and working through unresolved emotions. Helping pt connect with outside supports. Discharge Recommendations/Instructions:: It is recommended pt follow up with Krys Whitehead for weekly counseling, Pat for case management and schedule with counseling center for psychiatry before she is done seeing Dr. Gonzales to ensure there is no gap in care. Discharge Handout: Complete Discharge Handout with client on aftercare options and continuity of care.
--- NOTE | 2018-01-16 11:10 | BH.SGPN_ITS ---
Service Group Progress Note - Session Psychotherapy Session #1 Date Open:: 01/12/18 Time Started:: 09:05 Time Stopped:: 10:20 Targeted Problem #:: 1 Type of Group:: Process - 7 group members Goal of Group:: The goal of today's group was to check-in with client's mood, stressors, and positives, review homework and introduce topic for the day. Client Response/Progress/Benefit:: Client reported yesterday she had a good day because she does a lot of things outside the house and things that she enjoys doing. Client reported she went to the garden to work which she identified is something that really is relaxing and allows her to be in the moment. Client identified she also spent time with family outside of the home and was just productive throughout the day. Client shared she is happy but yet sad at the same time that today is her last day because she made a lot of connections and has made a lot of progress but is going to miss having the group to attend. Client shared she is proud of herself for following through with aftercare by attending her outpatient counseling sessions which is something the past she never did. Client demonstrated significant progress since entering [facility] as evidenced by her reporting decreased depressive and anxious symptoms as well as consistent utilization of healthy coping strategies and following through with aftercare plans. Client will be discharged from [facility] today. Eye Contact:: Good Motor Activity:: Appropriate Appearance:: Neat Speech:: Appropriate Mood:: Euthymic Affect:: Congruent Thoughts:: Linear, Logical, No evidence of hallucinations/delusions noted Staff Interventions:: Therapist used open-ended questions to elicit information about client's current stressors and mood state. Therapist was supportive by using active listening and reflection.
--- NOTE | 2018-01-16 12:18 | BH.MDN_ITS ---
Multi-Disciplinary Note - Note 30-min Individual Time Started:: 12:30 Date: 01/12/18 Purpose of session/treatment goals addressed:: Purpose of session was to discuss progress, identify strategies for success, and solidfy aftercare plan. Eye Contact:: Good Motor Activity:: Appropriate Appearance:: Neat Speech:: Appropriate Mood:: Euthymic Affect:: Congruent Thoughts:: Linear, Logical, No evidence of hallucinations/delusions noted Staff Interventions:: Therapist used open ended questions to elicit pt's current thoughts and ideas. Therapist elicited pt's thoughts about treatment progress since she has started IOP. Therapist collaborated with pt to identify strategies that can help her maintain success. Therapist confirmed aftercare plans for follow up for pt. Client Response:: Pt reported she has made a lot of progress since starting IOP. Pt shared she is better able at managing her depressive and anxious symptoms. Pt reported she has increased awareness of her negative and distorted thought patterns and is able to challenge those thoughts much easier. Pt shared she has decreased her isolation by getting out of the house more frequently and being more willing to connect with her friends instead of avoid them. Pt reported she has been able to get through various stressors without going back to a deep depression. Pt able to identify several strategies that can help her maintain success including: self-awareness, challenging thoughts, getting out of house, communicating with supports, being mindful, and following up with aftercare plans. Pt confirmed she will continue to follow up with Dr. Ellen Buckley for medication management and once she delivers her baby she will go back to the counseling center for psychiatry. Pt also confirmed she will continue to see her outpatient counselor at [facility] and set up case management appointments. Risks/Concerns:: Pt denies suicidal thoughts, plan or intention to date. Future focused and positive. Progress Toward Goals/Plan:: Pt has demonstrated progress with decreased depressive and anxoius symptoms. Pt has made significant progress on her treatment goals and no longer meets medical necessity for [facility] level of care. Pt will be discharged from [facility] today and is encouraged to follow up with aftercare plans. Time Stopped:: 13:00
--- NOTE | 2018-01-18 09:53 | BH.DS_ITS ---
Discharge Summary - Demographics Date of Admission:: 11/21/17 Discharge Date: 01/12/18 Presenting Problems at Admission:: Patient presented to [facility] for evaluation and treatment of depression and anxiety. Pt symptoms had worsened since October after her uncle completed suicide. Her depression again worsened prior to admission due to her grandmother's health decline and her grandmother being placed in hospice. She endorsed depression with a dark mood anhedonia, decreased energy, difficulty concentrating. Pt reported ruminative anxiety about anything I cannot control. Discharge Diagnoses:: Major depressive disorder recurrent moderate. Anxiety unspecified. Remote history disordered eating Reason for Discharge:: Pt has made significant progress on her treatment goals. Pt no longer meets medical necessity for intensive level of care. - Treatment Progress During Treatment & Response: Pt has improved self-awareness into thought patterns, recognizing what thoughts are unhelpful and being able to challenge those thoughts. Pt has progressed with consistently using healthy coping strategies even when there were several stressors that occurred while in IOP. Pt has followed through with suggested aftercare and now has a plan in place for continued help and support. Pt recognizes importance of addressing problems and emotions, versus isolating or avoiding. Pt has shown resilience through the many hardships she has experienced. Pt responded well to treatment as evidenced by her engagement in both group and individual treatment. Pt was often actively engaged sharing her thoughts and ideas with group. Pt completed homework assignments and worked on skills learned outside of [facility]. Issues Still to be Addressed:: Pt could benefit from continued reinforcement of healthy coping strategies. Pt also could benefit from grief counseling understanding common reactions to grief and working through unresolved emotions. Helping pt connect with outside supports. Discharge Recommendations/Instructions:: It is recommended pt follow up with Krys Whitehead for weekly counseling, Pat for case management and schedule with counseling center for psychiatry before she is done seeing Dr. Gonzales to ensure there is no gap in care. Discharge Handout: Complete Discharge Handout with client on aftercare options and continuity of care.
== END 2018-01-12 14:00 | disposition home or self-care (01) ==
LOC: BHIOP 09:00
PROVIDERS: Referring Provider Psychiatry & Neurology Psychiatry; Visit Provider Psychiatry & Neurology Psychiatry
DX: F33.1 Major depressive disorder, recurrent, moderate (principal); F41.9 Anxiety disorder, unspecified
CPT/HCPCS: H0035; H2012; H2020; 90832

== ENCOUNTER → 2018-01-02 10:05 | Outpatient (CLI) | payer MEDICAID, SELFPAY ==
[2018-01-02 10:32] LABS: Absolute Lymphocyte Count 1.77 X10^3/ul (0.83-4.51); Absolute Neutrophil Count 7.7 X10^3/uL (2.0-7.7); Basophil# 0.03 X10^3/uL; Basophil% 0.3 % (0-1); Eosinophil# 0.19 X10^3/uL; Eosinophils% 1.8 % (0-5); Hematocrit 35.5 % (37-47); Hemoglobin 11.8 g/dl (12.0-15.0); Lymphocyte # 1.77 X10^3/ul (4.0); Lymphocyte % 17.1 % (19-41); Mean Corp Hgb Conc 33.2 g/gl (32-36); Mean Corpuscular Hgb 28.7 pg (27.0-32.0); Mean Corpuscular Volume 86.4 fL (81-99); Mean Platelet Vol. 8.7 fl (6.2-12.0); Monocyte# 0.63 X10^3/uL; Monocyte% 6.1 % (0-10); Neutrophil # 7.69 X10^3/uL (2.7-7.7); Neutrophil % 74.3 % (47-70); Platelet Count 326 K/mm3 (150-450); RBC Distribution Width CV 13.2 % (11.6-14.6); RBC Distribution Width SD 40.9 fl (35.1-43.9); Red Blood Count 4.11 M/mm3 (4.2-5.4); White Blood Count 10.4 K/mm3 (4.4-11.0)
[2018-01-02 10:36] LABS: POSITIVE COUNT NO; POSITIVE DIFFERENTIAL NO; POSITIVE MORPHOLOGY NO
[2018-01-02 11:11] LABS: ALB/GLOB Ratio 0.6 RATIO (0.9-2.4); AST(SGOT) 60 U/L (15-37); Alanine Aminotransfer ALT/SGPT 91 U/L (13-56); Albumin, Serum 2.4 g/dL (3.2-5.0); Alkaline Phosphatase 69 U/L (45-117); Anion Gap 6 (5-15); BUN 6 mg/dL (7-18); BUN/Creat Ratio 11.6 RATIO (10-20); Calcium,Total 8.1 mg/dL (8.5-10.1); Chloride 107 mmol/L (98-107); Creatinine, Serum 0.52 mg/dL (0.55-1.02); EST Glomerular Filtration Rate 153 mL/min (>60); Est Glom Filt Rate - Afr Amer 185 mL/min (>60); Globulin 4.3 g/dL (2.2-4.2); Glucose 81 mg/dL (74-106); Potassium 3.8 mmol/L (3.5-5.1); Protein, Total 6.7 g/dL (6.4-8.2); Sodium Level 138 mmol/L (136-145); T4 Free Direct 0.76 ng/dL (0.76-1.46); Thyroid Stim Hormone (TSH) 2.51 uIU/mL (0.358-3.74)
[2018-01-03 10:07] LABS: CMV Acute Antibody IgM < 30.0 AU/mL (0.0-29.9); CMV Antibody IgG < 0.60 U/mL (0.00-0.59)
== END ==
PROVIDERS: Visit Provider Obstetrics & Gynecology
DX: R16.0 Hepatomegaly, not elsewhere classified (principal); R74.8 Abnormal levels of other serum enzymes
CPT/HCPCS: 36415; 80053; 84439; 84443; 85025; 86644; 86645

== ENCOUNTER → 2018-01-12 13:18 | Outpatient (CLI) | payer MEDICAID, SELFPAY ==
[2018-01-12 14:41] LABS: Absolute Lymphocyte Count 2.13 X10^3/ul (0.83-4.51); Absolute Neutrophil Count 8.2 X10^3/uL (2.0-7.7); Basophil# 0.02 X10^3/uL; Basophil% 0.2 % (0-1); Eosinophils% 1.8 % (0-5); Hematocrit 33.8 % (37-47); Lymphocyte # 2.13 X10^3/ul (4.0); Lymphocyte % 18.8 % (19-41); Mean Corp Hgb Conc 32.5 g/gl (32-36); Mean Corpuscular Hgb 27.6 pg (27.0-32.0); Mean Corpuscular Volume 84.7 fL (81-99); Mean Platelet Vol. 8.7 fl (6.2-12.0); Monocyte# 0.72 X10^3/uL; Monocyte% 6.3 % (0-10); Neutrophil # 8.23 X10^3/uL (2.7-7.7); Neutrophil % 72.4 % (47-70); Platelet Count 318 K/mm3 (150-450); RBC Distribution Width CV 13.4 % (11.6-14.6); RBC Distribution Width SD 41.4 fl (35.1-43.9); Red Blood Count 3.99 M/mm3 (4.2-5.4); White Blood Count 11.4 K/mm3 (4.4-11.0)
[2018-01-12 14:43] LABS: POSITIVE COUNT NO; POSITIVE DIFFERENTIAL NO; POSITIVE MORPHOLOGY NO
[2018-01-12 15:09] LABS: Glucose Challenge Gest 1H 50g 104 mg/dL (70-140)
[2018-01-12 21:34] LABS: BUN 6 mg/dL (7-18); BUN/Creat Ratio 11.5 RATIO (10-20); Creatinine, Serum 0.52 mg/dL (0.55-1.02); EST Glomerular Filtration Rate 151 mL/min (>60); Est Glom Filt Rate - Afr Amer 183 mL/min (>60)
[2018-01-12 21:35] LABS: ALB/GLOB Ratio 0.5 RATIO (0.9-2.4); AST(SGOT) 34 U/L (15-37); Alanine Aminotransfer ALT/SGPT 61 U/L (13-56); Albumin, Serum 2.3 g/dL (3.2-5.0); Alkaline Phosphatase 70 U/L (45-117); Anion Gap 9 (5-15); Calcium,Total 7.7 mg/dL (8.5-10.1); Chloride 109 mmol/L (98-107); Globulin 4.5 g/dL (2.2-4.2); Potassium 3.6 mmol/L (3.5-5.1); Protein, Total 6.8 g/dL (6.4-8.2); Sodium Level 140 mmol/L (136-145)
== END ==
PROVIDERS: Family Provider Internal Medicine; PCP Internal Medicine; Visit Provider Obstetrics & Gynecology
DX: O26.619 Liver and biliary tract disorders in pregnancy, unspecified trimester (principal); R16.0 Hepatomegaly, not elsewhere classified; Z3A.00 Weeks of gestation of pregnancy not specified
CPT/HCPCS: 36415; 80053; 82950; 85025

== ENCOUNTER 2018-02-14 14:18 | Outpatient (CLI) | payer MEDICAID, SELFPAY ==
[2018-02-14 14:24] VITALS: BMI 34.1
[2018-02-14 16:12] LABS: Mucous, Urine 0 SEEN /hpf (<or=2+); Red Blood Cells-Urine 0 SEEN /hpf (0-5)
[2018-02-14 16:15] LABS: Color, Urine Yellow (Yellow); Glucose, Dipstick Normal (Normal); Ketone-Dipstick Negative (Negative); Leukocyte Esterase-Dipstick 500 /ul (Negative); Nitrite-Dipstick Negative (Negative); Occult Blood-Urine Negative /ul (Negative); Protein-Dipstick Negative (Negative); Specific Gravity, Urine 1.005 (1.002-1.030); Urine Bilirubin Dipstick Negative (Negative); Urine Clarity Sl. Cloudy (Clear); Urine Urobilinogen Normal (Normal)
[2018-02-14 16:26] LABS: White Blood Cells 0-5 SEEN /hpf (0-5)
[2018-02-14 16:27] LABS: Bacteria 2+ /hpf (None Seen); Squamous Epithelial Cells - UA 0-5 SEEN /hpf (5-10)
[2018-02-14 16:44] LABS: ALB/GLOB Ratio 0.5 RATIO (0.9-2.4); AST(SGOT) 19 U/L (15-37); Alanine Aminotransfer ALT/SGPT 19 U/L (13-56); Albumin, Serum 2.3 g/dL (3.2-5.0); Alkaline Phosphatase 113 U/L (45-117); Anion Gap 9 (5-15); BUN 3 mg/dL (7-18); BUN/Creat Ratio 5.9 RATIO (10-20); Calcium,Total 8.5 mg/dL (8.5-10.1); Chloride 108 mmol/L (98-107); Creatinine, Serum 0.51 mg/dL (0.55-1.02); EST Glomerular Filtration Rate 154 mL/min (>60); Est Glom Filt Rate - Afr Amer 187 mL/min (>60); Estimated Creatinine Clearance 138.28 ml/min; Globulin 4.6 g/dL (2.2-4.2); Glucose 97 mg/dL (74-106); Hematocrit 33.3 % (37-47); Hemoglobin 10.7 g/dl (12.0-15.0); Mean Corp Hgb Conc 32.1 g/gl (32-36); Mean Corpuscular Hgb 25.6 pg (27.0-32.0); Mean Corpuscular Volume 79.7 fL (81-99); Mean Platelet Vol. 9.2 fl (6.2-12.0); Platelet Count 404 K/mm3 (150-450); Potassium 3.8 mmol/L (3.5-5.1); Protein, Total 6.9 g/dL (6.4-8.2); RBC Distribution Width CV 14.2 % (11.6-14.6); RBC Distribution Width SD 40.5 fl (35.1-43.9); Red Blood Count 4.18 M/mm3 (4.2-5.4); Sodium Level 140 mmol/L (136-145); White Blood Count 12.6 K/mm3 (4.4-11.0)
[2018-02-14 16:45] LABS: Scan Indicated on CBC? Y/N NO
--- NOTE | 2018-02-27 05:14 | OB.TRI.NOTE ---
- Problem List (1) Elevated liver enzymes Status: Acute Comment: GI consult (2) Hepatomegaly Status: Acute Comment: GI consult History of Present Illness Date of Service: 02/15/18 Was patient seen by the physician?: No Reason For Visit: DECREASED MOVEMENT,SPOTTING & UMBILICAL PAIN Date of Service: 02/15/18 Final MAGI Source: LMP Home Medications Medication Instructions Recorded promethazine 12.5 mg tablet 12.5 mg PO Q6H PRN #90 tab 09/08/17 valacyclovir 500 mg tablet 500 mg PO QDAY #30 tab 09/08/17 Vit Calc,Iron,Folic 1 ea PO DAILY 11/24/17 [ Vitamins] citalopram 20 mg tablet 20 mg PO QDAY #30 tab 12/07/17 Cholecalciferol (Vitamin D3) 4,000 unit PO DAILY 12/15/17 [Vitamin D3] Meclizine HCl [Wal-Dram 2] 25 mg PO DAILY 02/14/18 Ondansetron HCl [Zofran] 4 mg PO Q4H 02/14/18 Pantoprazole Sodium [Protonix] 20 mg PO DAILY 02/14/18 Allergies dicloxacillin Allergy (Mild, Verified 02/19/18 14:14) Other watermelon Allergy (Mild, Verified 02/19/18 14:14) Other - Pertinent Past Medical History Surgical History: Past Surgical History (Last Reviewed 02/19/18 @ 14:14 by Lesly Mistry) History of wisdom tooth extraction NST - FHR Rate Baby A Baseline: 140 Variability:: Moderate Accelerations:: 15 x 15 Decelerations:: None NST Reactive:: Yes FHR Category:: Category I Uterine Activity:: no regular Impression/Plan decreased movement, abdominal pain
== END 2018-02-14 17:05 | disposition home or self-care (01) ==
LOC: WPOUT 14:23 → WP 02-15 09:09
PROVIDERS: Family Provider Internal Medicine; PCP Internal Medicine; Visit Provider Obstetrics & Gynecology
DX: O36.8190 Decreased fetal movements, unspecified trimester, not applicable or unspecified (principal); O26.859 Spotting complicating pregnancy, unspecified trimester; R10.33 Periumbilical pain; R74.8 Abnormal levels of other serum enzymes; R16.0 Hepatomegaly, not elsewhere classified; Z3A.00 Weeks of gestation of pregnancy not specified
CPT/HCPCS: 36415; 59025; 59050; 80053; 81001; 85027; 99218; G0378

== ENCOUNTER → 2018-02-27 12:27 | Outpatient (CLI) | payer MEDICAID, SELFPAY ==
--- NOTE | 2018-02-27 12:29 | US_ITS ---
STUDY: SECOND AND THIRD TRIMESTER OBSTETRICAL ULTRASOUND - LIMITED REASON FOR EXAM: Female, 27 years old. Routine survey. LMP: July 05, 2017. PRIOR ULTRASOUND: Comparison is made with prior study dated November 20, 2017. TECHNIQUE: Transabdominal ultrasound evaluation was performed. FINDINGS: There is a single intrauterine fetus. The fetus is in a cephalic presentation. There is demonstrated cardiac activity with a heart rate of 127 bpm. There is a normal amniotic fluid volume. The largest amniotic fluid pocket measures 3.5 cm x 3.2 cm. The amniotic fluid index (TAMRA) is 7.93 cm. The placenta is posterior in location and is not low lying. There are Grade 2 placental changes. The cervix measures 3.06 cm in length. BIOMETRY: BPD: 8.69 cm: 35 weeks, 1 days HC: 32.59 cm: 37 weeks, 0 days AC: 30.93 cm: 35 weeks, 0 days FL: 6.83 cm: 35 weeks, 1 days Age by LMP: 33 weeks, 6 days. MAGI by LMP: April 11, 2018. age by prior US: 34 weeks, 6 days. MAGI by prior US: April 04, 2018. age by current US: 35 weeks, 4 days. MAGI by current US: March 30, 2018. Estimated weight: 2610 grams, +/- 381 grams, 81 percentile. US/OB Limited With Biometrics IMPRESSION: Single live intrauterine gestation with a mean gestational age of 34 weeks and 6 days. The measurements obtained today following within normal expected range. Electronically Signed: Naun Peters MD at 14:18 EDT Tel [phone], Service support ,
== END ==
PROVIDERS: Family Provider Internal Medicine; PCP Internal Medicine; Visit Provider Nurse Practitioner Women's Health
DX: O36.60X0 Maternal care for excessive fetal growth, unspecified trimester, not applicable or unspecified (principal); Z3A.00 Weeks of gestation of pregnancy not specified
CPT/HCPCS: 76816

== ENCOUNTER → 2018-03-16 18:38 | Outpatient (CLI) | payer MEDICAID, SELFPAY ==
[2018-03-16 21:20] LABS: Group B Strep DNA By PCR Negative (Negative); Internal Control PASS; Probe Check PASS; Specimen Processing Control PASS
== END ==
PROVIDERS: Visit Provider Obstetrics & Gynecology
DX: Z34.90 Encounter for supervision of normal pregnancy, unspecified, unspecified trimester (principal)
CPT/HCPCS: 87081; 87653

== ENCOUNTER 2018-03-28 07:00 | Inpatient (IN) | payer MEDICAID, SELFPAY ==
[2018-03-28 02:48] VITALS: BMI 38.2
--- NOTE | 2018-03-28 07:31 | PCM.HP.OB ---
- Problem List (1) Active labor at term Status: Acute (2) Elevated liver enzymes Status: Acute Comment: GI consult (3) Hepatomegaly Status: Acute Comment: GI consult (4) Genital herpes Status: Acute Qualifiers: Comment: suppressive valtrex 34 weeks (5) screening encounter Status: Acute Comment: elevated risk down syndrome- normal NIPT screening, plan growth us in third trimester (6) Anxiety and depression Status: Chronic Comment: brittney, behavioral health services. (7) Hyperemesis gravidarum Status: Acute Comment: phenergan and zantac- resolved now. (8) Supervision of normal Status: Acute Qualifiers: Comment: PRR MAGI 04/11/18 maisha Blue semi involved History Final MAGI: 04/11/18 Final MAGI Source: LMP Gestational age: 38 Weeks and 1 Days History of this : This is a 27 year-old, G2, P1 at 38 weeks gestational age IAL Medical History: Medical History (Last Updated 03/28/18 @ 07:33 by Araceli Dueñas MD) Anxiety and depression F41.9, F32.9 Surgical History: Surgical History (Last Reviewed 03/28/18 @ 07:33 by Araceli Dueñas MD) History of wisdom tooth extraction K08.499 Allergies dicloxacillin Allergy (Mild, Verified 03/22/18 16:28) Other watermelon Allergy (Mild, Verified 03/22/18 16:28) Other Home Medications: Home Medications promethazine 12.5 mg tablet 12.5 mg PO Q6H PRN #90 tab 09/08/17 valacyclovir 500 mg tablet 500 mg PO QDAY #30 tab 09/08/17 Vit Calc,Iron,Folic [ Vitamins] 1 ea PO DAILY 11/24/17 Cholecalciferol (Vitamin D3) [Vitamin D3] 4,000 unit PO DAILY 12/15/17 Meclizine HCl [Wal-Dram 2] 25 mg PO DAILY 02/14/18 Ondansetron HCl [Zofran] 4 mg PO Q4H 02/14/18 Pantoprazole Sodium [Protonix] 20 mg PO DAILY 02/14/18 Citalopram Hydrobromide [Citalopram HBr] 20 mg PO QDAY 03/28/18 Smoking Status: Never smoker History Past Pregnancies: Past Pregnancies Delivery Date Name GA/Weeks Outcome Route Weight Gender Labor Length Anesthesia Delivery Location Provider FOB Labs: Mom's Problem List Problem Status Onset Code Active labor at term Acute Social History Hx Smoking No Smoking Status Never smoker Expected Infant Delivery Method: Spontaneous Vaginal Describe any other labor & delivery plans:: wants minimal intervention, plannng pPTL Review of Systems Constitutional: Denies: Fever, Malaise Eyes: Denies: Blurred vision, Vision Change HEENT: Denies: Head Aches, Visual Changes Cardiovascular: Denies: Chest Pain, Palpitations Respiratory: Denies: Cough, Shortness of Breath, Wheezing Gastrointestinal: Denies: Abdominal Pain, Diarrhea, Nausea, Vomiting Genitourinary: Denies: Dysuria, Hematuria Musculoskeletal: Denies: Joint Pain, Muscle pain Skin: Denies: Lesions, Rash Neurological: Denies: Blurred vision, Focal weakness, Headaches Psychiatric: Denies: Anxiety, Depression Endocrine: Denies: Heat/ Cold Intolerance Hematologic/ Lymphatic: Denies: Easy Bruising, Easy Bleeding Physical Exam General: Alert, Cooperative, No apparent distress HEENT: Atraumatic, Normocephalic. Negative for: Thyromegaly, Lymphadenopathy Cardiovascular: Regular rate Lungs: Normal air movement Abdomen: Soft, Non Tender, Gravid Neurological: Deep Tendon Reflexes 2+/4 and Symmetrical, Neuro grossly intact. Negative for: Clonus [employer]ATING SUPERVISOR: Normal external genitalia. Negative for: Vulvar lesions Estimated gestational size: Appropriate for gestational size Presentation: Cephalic Assessment/Plan All Active Problems (Last Updated 03/28/18 @ 07:33 by Araceli Dueñas MD) Supervision of normal (Acute) Hyperemesis gravidarum (Acute) screening encounter (Acute) Genital herpes (Acute) Hepatomegaly (Acute) Elevated liver enzymes (Acute) Active labor at term (Acute) This is a 27 year-old, , at 38 weeks gestational age. exp [facility], [place]
[2018-03-28] MEDS: Lactated Ringers 1,000 ML 50 ML IV ×2 (08:00→15:05)
[2018-03-28] MEDS: Acetaminophen 325 MG Tablet PO (08:12)
[2018-03-28 08:16] LABS: Hematocrit 30.9 % (37-47); Hemoglobin 9.4 g/dl (12.0-15.0); Mean Corp Hgb Conc 30.4 g/gl (32-36); Mean Corpuscular Hgb 21.9 pg (27.0-32.0); Mean Platelet Vol. 9.1 fl (6.2-12.0); Platelet Count 358 K/mm3 (150-450); RBC Distribution Width CV 17.3 % (11.6-14.6); RBC Distribution Width SD 45.3 fl (35.1-43.9); Red Blood Count 4.29 M/mm3 (4.2-5.4); White Blood Count 11.6 K/mm3 (4.4-11.0)
[2018-03-28 08:17] LABS: Scan Indicated on CBC? Y/N YES- FLAGS NOTED
[2018-03-28] MEDS: fentaNYL-bupivacaine (epidural) 100 ML BAG EPIDURAL (15:30)
[2018-03-28] MEDS: Oxytocin 30 units/NS 500 ml 30 UNITS/500 ML IV.SOLN 334 UNITS IV (17:41)
[2018-03-28] MEDS: Oxytocin 30 units/NS 500 ml 30 UNITS/500 ML IV.SOLN 167 UNITS IV (18:41)
[2018-03-28] MEDS: 0.9% Saline Lock 10 ML Syringe IV (19:40)
[2018-03-28 19:45] VITALS: BP 139/74; PULSE 92; RESP 18; TEMP 36.3
[2018-03-28] MEDS: Naproxen 250 MG Tablet PO (20:01)
[2018-03-28] MEDS: Citalopram 20 MG Tablet PO (23:41)
[2018-03-29] VITALS (10 sets, daily range): BP systolic 106–128; BP diastolic 54–91; PULSE 67–116; RESP 16–20; TEMP 36.2–37.1; O2SAT 90–99; BMI 38.2
[2018-03-29] MEDS: 0.9% Saline Lock 10 ML Syringe IV (04:39)
[2018-03-29] MEDS: Lactated Ringers 1,000 ML 100 ML IV (04:40)
[2018-03-29] MEDS: Naproxen 250 MG Tablet PO ×2 (04:44→17:12)
--- NOTE | 2018-03-29 08:02 | PCM.PN.OB ---
Patient Problems: Active and Suspected Problems (Last Updated 03/28/18 @ 07:33 by Araceli Dueñas MD) Active labor at term (Acute) Subjective: NO CP, SOB, nausea. NPO for BTO later today. Baby with low blood glucose, difficulty breast feeding. - Physical Exam General: Alert, Oriented x3 Abdomen: Soft, Non Tender, - - FF below U Vital Signs Temp Pulse Resp BP 98 F 89 18 113/56 L 03/29/18 04:30 03/29/18 04:30 03/29/18 04:30 03/29/18 04:30 Oxygen Delivery Method Room Air Weight: 215 lb 9.793 oz Body Mass Index (BMI) 38.2 Intake and Output for Last 24 Hours 03/27/18 03/28/18 03/29/18 23:59 23:59 23:59 Intake Total 2376 / 2376 Output Total 1150 / 1150 250 / 250 Balance 1226 / 1226 -250 / -250 Laboratory Tests Past 24 Hrs 03/28/18 03/28/18 08:00 08:00 WBC 11.6 H RBC 4.29 Hgb 9.4 L Hct 30.9 L MCV 72.0 L MCH 21.9 L MCHC 30.4 L RDW 17.3 H RDW Differential 45.3 H Plt Count 358 MPV 9.1 Differential Comment Blood Type O POSITIVE Antibody Screen NEGATIVE Medical Necessity - Tobacco Use Smoking Status: Never smoker Assessment/Plan All Active Problems (Last Updated 03/28/18 @ 07:33 by Araceli Dueñas MD) Supervision of normal (Acute) Hyperemesis gravidarum (Acute) screening encounter (Acute) Genital herpes (Acute) Hepatomegaly (Acute) Elevated liver enzymes (Acute) Active labor at term (Acute) PPD #1: doing well. BTO later today. Routine care.
[2018-03-29] MEDS: Lactated Ringers 1,000 ML 125 ML IV (11:15)
--- NOTE | 2018-03-29 12:55 | PCM.OB.VAG ---
- Problem List (1) Active labor at term Status: Acute (2) Elevated liver enzymes Status: Acute Comment: GI consult (3) Hepatomegaly Status: Acute Comment: GI consult (4) Genital herpes Status: Acute Qualifiers: Comment: suppressive valtrex 34 weeks (5) screening encounter Status: Acute Comment: elevated risk down syndrome- normal NIPT screening, plan growth us in third trimester (6) Anxiety and depression Status: Chronic Comment: brittney, behavioral health services. (7) Hyperemesis gravidarum Status: Acute Comment: phenergan and zantac- resolved now. (8) Supervision of normal Status: Acute Qualifiers: Comment: PRR MAGI 04/11/18 maisha Blue semi involved Vaginal Delivery Maternal Presentation: Active Labor 38 weeks in active labor Amniotic Membrane Rupture Type: Artificial Amniotic Fluid Description: Clear Final MAGI: 04/11/18 Gestational age: 38 Weeks and 1 Days Date of Procedure: 03/28/18 Pre-Operative Diagnosis: labor Post-Operative Diagnosis: same Surgery/ Procedure Performed: Spontaneous Vaginal Delivery Type of Anesthesia: Epidural Description of Procedure: Patient began pushing and delivered the head in the ANGEL presentation. The head was delivered atraumatically. The anterior and posterior shoulders delivered without complication followed by the rest of the infant and the was placed on the maternal abdomen. Delayed cord clamping was employed for approximately 60 seconds. Cord was clamped and cut and gentle traction was applied to the cord and the placenta delivered spontaneously immediately following it was noted to be intact with three-vessel cord. The perineum and vagina were inspected and noted to have a second-degree laceration that was repaired in the usual fashion.. EBL was 200. Patient and infant tolerated delivery well. Presentation: ANGEL Cord Entanglement: None Estimated Blood Loss: 200 A gender: Male Episiotomy Description: None Laceration: Perineal Extension/lac, 2nd degree Medications given after delivery: IV Pitocin Complications: None
[2018-03-29] MEDS: Bupivacaine 0.25% 30 ML Vial (13:00)
--- NOTE | 2018-03-29 14:12 | CASEMGMT ---
Social Work Note Labor and Delivery Noted social work consult for maternal history of depression and anxiety. Chart reviewed. Patient to surgery today for sterilization and per nursing staff baby is large for gestational age, working on feedings for blood sugar stability. Due to so much going on today, will plan to see patient tomorrow morning. PLAN: will follow up with patient in the morning of -. -JEFF Perry, STRATEGIC ACCOUNT DIRECTOR
[2018-03-29] MEDS: Pantoprazole Sodium 20 MG Tablet PO (17:12)
--- NOTE | 2018-03-29 21:00 | OP.PCM_ITS ---
Problem List (1) Active labor at term Status: Acute (2) Elevated liver enzymes Status: Acute Comment: GI consult (3) Hepatomegaly Status: Acute Comment: GI consult (4) Genital herpes Status: Acute Qualifiers: Comment: suppressive valtrex 34 weeks (5) screening encounter Status: Acute Comment: elevated risk down syndrome- normal NIPT screening, plan growth us in third trimester (6) Anxiety and depression Status: Chronic Comment: celexa, behavioral health services. (7) Hyperemesis gravidarum Status: Acute Comment: phenergan and zantac- resolved now. (8) Supervision of normal Status: Acute Qualifiers: Comment: PRR MAGI 04/11/18 maisha Zachary or Maycol Blue semi involved Report of Operation Date of Procedure: 03/28/18 Pre-Operative Diagnosis: desired sterilization Post-Operative Diagnosis: same Surgery/Procedure Performed:: pptl segmental paving supervisor: none Type of Anesthesia:: Epidural, Local MAC Specimen's removed: none Drains: tadeo Estimated Blood Loss (mL): 200 Fluids Replaced: crystalloid Description of Procedure: Patient was taken to the operating room and epidural anesthesia was found to be adequate. Patient was placed in the dorsal supine position was prepped and draped in normal sterile fashion. Tadeo catheter was used to drain the bladder. Infra umbilical incision was made with a scalpel after injecting with marcaine and carried through the underlying layer of the fascia with a scalpel fascial incision was extended bilaterally with Crisostomo scissors and bowel packed away and the right fallopian tube identified confirmed to be fallopian tube by following it out to the fimbria and a Filshie clip was applied in the mid interstitial portion of the fallopian tube noting to completely transect the tube. This was repeated on the left side where the tube was identified and followed out to the fimbria and confirmed to be fallopian tube and then the mid interstitial portion of the tube was completely transected with the Filshie clip. Excellent hemostasis was noted. Fascia was closed with 0 Vicryl and skin closed with 3-0 Monocryl. No complications. Patient was taken recovery in stable condition. Grafts/Implants Used: none - Complications none - Admit VTE Documentation VTE Present on Admission: No VTE Mechan Device Prophylaxis: SCD's
[2018-03-29] MEDS: Citalopram 20 MG Tablet PO (21:16)
[2018-03-30] MEDS: Acetaminophen 500 MG Tablet 1000 MG PO (00:44)
[2018-03-30 03:10] VITALS: BP 119/60; PULSE 73; RESP 16; TEMP 36.5; O2SAT 97
--- NOTE | 2018-03-30 08:18 | PCM.PN.OB ---
Patient Problems: Active and Suspected Problems (Last Updated 03/28/18 @ 07:33 by Araceli Dueñas MD) Active labor at term (Acute) Subjective: NO CP, SOB, nausea. Doing well - Physical Exam General: Alert, Oriented x3 Abdomen: Soft, Non Tender, Non-Distended - FF below U; Dressing dry and intact Vital Signs Temp Pulse Resp BP Pulse Ox 97.7 F L 73 16 119/60 97 03/30/18 03:10 03/30/18 03:10 03/30/18 03:10 03/30/18 03:10 03/30/18 03:10 Oxygen Delivery Method Room Air Weight: 215 lb 9.793 oz Body Mass Index (BMI) 38.2 Intake and Output for Last 24 Hours 03/28/18 03/29/18 03/30/18 23:59 23:59 23:59 Intake Total 2376 / 2376 1200 / 1200 Output Total 1150 / 1150 600 / 600 Balance 1226 / 1226 600 / 600 Medical Necessity - Tobacco Use Smoking Status: Never smoker Assessment/Plan All Active Problems (Last Updated 03/28/18 @ 07:33 by Araceli Dueñas MD) Supervision of normal (Acute) Hyperemesis gravidarum (Acute) screening encounter (Acute) Genital herpes (Acute) Hepatomegaly (Acute) Elevated liver enzymes (Acute) Active labor at term (Acute) PPD #3; BTO POD #1: Doing well, routine care. Pain controlled. Home today.
[2018-03-30 08:45] VITALS: BP 120/64; PULSE 69; RESP 18; TEMP 36.4; O2SAT 94
[2018-03-30] MEDS: Pantoprazole Sodium 20 MG Tablet PO (09:17)
--- NOTE | 2018-03-30 11:00 | CASEMGMT ---
Social Work Assessment Labor and Delivery Unit Date of Referral: 03/29/2018 Time of Referral: 353 Referred By: Dr. Dueñas Date of Intervention: 03/30/2018 Time of Intervention: 1100 Reason for Referral: maternal history of depression and anxiety History obtained from: medical record and patient/mother of baby (MOB) Household composition: MOB, MOBs mother Elena, and MOBs older child. MOB intends for to also live in this home. MOB denies any safety concerns in home situation. Patient's parent/guardian status: MOB and reported father of baby (FOB) are not together, nor if FOB going to be involved. MOB declines to provide FOB information. MOB report both children have different fathers, and oldest nicolle father is also not involved. MOBs children include: Neha Chapa (born 07-12-2014) and Zachary Chapa (born 03-28-2018). Medical History: MOB is G2, P1 to 2 after delivering Zachary. care started at 9 weeks gestation. Zachary was born weighing 4081 grams, Apgars 8 and 9 at 1 and 5 minutes of life. Educational Status: MOB is college educated with a bachelors degree in Biology. No reported issues with reading, writing, or learning comprehension. Financial Status: MOB was working last year, so received an income tax return, which MOB report has been using to support the needs of MOBs children. MOB reports this has been working out well so far, but will likely look for a job after about 6 weeks after . Supplies: MOB reports to have needed supplies including crib, car seat, clothing, diapers, wipes, breast pump, and bottles. Childcare/Caregiver(s): MOB or MOBs mother. Transportation: No reported issues. Programs/Agencies Involved: MOB reports to have medical through [place], and is active with [facility] for counseling (Krys) and case management (Rose). Children Services/Legal Issues: No reported involvement. Behavioral Health Issues: MOB reports long history of depression and anxiety, diagnosed when MOB was 14 years old. MOB reports history of depression as well, after Neha was born. MOB reports history of treatment with Zoloft and most recently on Celexa. MOB reports intent to remain on Celexa in the period. Addressed suicide risk and MOB reports was involved with [facility] program later winter/early springtime, and at that time did have some passive thoughts of dying, describing to this sba underwriter that feelings were of not wanting to exist. MOB denies any specific plans or intent for suicide however. MOB denies any thoughts of dying or suicide since that time. MOB reports awareness of need to continue to with outpatient mental health support in the period. MOB reports to use grounding exercises for coping, taking bathes, spending time with daughter, and tries to be intentional about not isolating self from social activities. MOB denies any history of substance use or abuse. No drug screen noted in care record or at delivery. Family/Social Stressors: ARTURO has had several changes and stressors this . Joan maternal uncle completed suicide in October and then maternal grandmother in November of this year. ARTURO and Jona mother moved homes after the grandmother . MOB also reports that was unplanned and came with many emotions and thoughts. There was some ambivalence initially, MOB considered adoption until about 20 weeks when MOB saw that baby was a boy and Joan uncle had just . ARTURO is single, no current income, and fathers to both children are not involved, though MOB not identifying income as a stressor at this time. Support Systems: MOB reports her mother, Elena, is a strong support person both practically and emotionally. MOB reports to have other family members and some close friends in the area as well. MOB reports Elena is willing to help out with the children, and with MOBs transition home from the hospital. ASSESSMENT: MOB pleasant, cooperative, and friendly during social visit. MOB held good eye contact, appropriate mood and affect to content. Nondefensive in conversation, and appearing open to talk about some recent stressors and past depression. MOB did cry a couple of times, appropriate to content being discussed at the time. MOB smiled at baby, looked at baby, talked to baby, and remained calm. MOB handled baby well, gentle, and calm. MOB reports awareness of benefit of staying in mental health counselling in the period, and reports wish to have this support as MOB references to know what went through before with depression. MOB reports to feel a connection with Zachary, to love the baby, and to also feel happy to have a herrera present. MOB reports was worried during that due to initial ambivalence with that maybe the herrera would not be present at . MOB reports as soon as she saw Zachary, that loved the baby. MOB reports desire to keep and parent baby at this point. MOB is able to identify healthy coping skills, reports intent to remain on antidepressant medication, and gave verbal consent for this sba underwriter to obtain mental health appointment/follow up with established counselor before leaving the hospital. MOB reports to have needed baby supplies and to have adequate help at home going. PLAN: MOB and baby to home today. Will follow up one more time today with MOBs follow up appointment and resources information. -NASREEN Perry, FAST FOOD ASSISTANT RESTAURANT MANAGER
[2018-03-30 12:39] VITALS: BP 117/60; PULSE 80; RESP 18; TEMP 36.4; O2SAT 98
--- NOTE | 2018-03-30 12:39 | DCINST_ITS ---
Allergies/Adverse Reactions: Allergies dicloxacillin Allergy (Mild, Verified 03/22/18 16:28) Other watermelon Allergy (Mild, Verified 03/22/18 16:28) Other Medications to take at Discharge promethazine 12.5 mg tablet 12.5 mg PO Q6H PRN #90 tab 09/08/17 valacyclovir 500 mg tablet 500 mg PO QDAY #30 tab 09/08/17 Vit Calc,Iron,Folic [ Vitamins] 1 ea PO DAILY 11/24/17 Cholecalciferol (Vitamin D3) [Vitamin D3] 4,000 unit PO DAILY 12/15/17 Meclizine HCl [Wal-Dram 2] 25 mg PO DAILY 02/14/18 Ondansetron HCl [Zofran] 4 mg PO Q4H 02/14/18 Pantoprazole Sodium [Protonix] 20 mg PO DAILY 02/14/18 Citalopram Hydrobromide [Citalopram HBr] 20 mg PO QDAY 03/28/18 Primary Care Physician: Jose Jett MD [Primary Care Provider] - Please follow up with your Primary Care Physician in: 6 weeks Please Follow Up With: Araceli Dueñas MD When: 6 weeks Please Follow Up With: Daniela Sommers When: 3 days Please Follow Up With: Krys Whitehead at [facility] When: 3:00 pm on Monday
--- NOTE | 2018-03-30 12:59 | CASEMGMT ---
Social Work Note Labor and Delivery Unit Arranged for mother of baby (MOB) to have mental health follow up with established counselor, Krys Whitehead, on 04-10-18 at 1500. Wrote this information down, including office number, and 24 hour crisis number. Provided MOB with follow up information, depression/anxiety packet including some online resources for such, and then a packet of [facility] resources. Reviewed information with MOB. Observed MOB to be attentive to , working on , and handled gently. Plan: MOB and baby to discharge home today. Local resource information given including mental health follow up, MOB is connected with several community agencies already, and reports to have adequate support at home going. No other social work services requested or indicated. -JEFF Perry, NUT CHOPPER
== END 2018-03-30 14:35 | disposition home or self-care (01) | DRG 374 ==
LOC: WPOUT 07:14
PROVIDERS: Admitting Provider Obstetrics & Gynecology; Family Provider Internal Medicine; PCP Internal Medicine; Visit Provider Obstetrics & Gynecology
PROC: 0UL70ZZ Occlusion of Bilateral Fallopian Tubes, Open Approach (ICD-10-PCS; principal; 2018-03-29 12:15)
DX: O98.32 Other infections with a predominantly sexual mode of transmission complicating childbirth (principal); A60.00 Herpesviral infection of urogenital system, unspecified; Z30.2 Encounter for sterilization; O70.1 Second degree perineal laceration during delivery; R16.0 Hepatomegaly, not elsewhere classified; R74.8 Abnormal levels of other serum enzymes; O99.344 Other mental disorders complicating childbirth; F32.9 Major depressive disorder, single episode, unspecified; F41.9 Anxiety disorder, unspecified; Z79.899 Other long term (current) drug therapy; Z3A.38 38 weeks gestation of pregnancy; Z37.0 Single live birth
CPT/HCPCS: 59025; 59050; 85027; 86850; 86900; 99218; J7120; A4216; G0378

== ENCOUNTER 2018-03-31 10:10 | Outpatient (CLI) | payer MEDICAID, SELFPAY | END 2018-03-31 11:10 | disposition home or self-care (01) | LOC: WPOUT 10:26 → WP 10:27 | PROVIDERS: Family Provider Internal Medicine; PCP Internal Medicine; Visit Provider Obstetrics & Gynecology | DX: Z39.1 Encounter for care and examination of lactating mother (principal) | CPT/HCPCS: 96152 ==

== ENCOUNTER → 2018-04-10 17:20 | Outpatient (CLI) | payer MEDICAID, SELFPAY | PROVIDERS: Visit Provider Obstetrics & Gynecology | DX: T81.4XXA Infection following a procedure, initial encounter (principal) | CPT/HCPCS: 87070; 87075; 87077; 87186; 87205 ==

== ENCOUNTER → 2018-05-01 18:33 | Outpatient (CLI) | payer MEDICAID, SELFPAY | PROVIDERS: Visit Provider Nurse Practitioner Women's Health | DX: T81.4XXA Infection following a procedure, initial encounter (principal) | CPT/HCPCS: 87070; 87075; 87077; 87186; 87205 ==

== ENCOUNTER 2018-05-04 16:38 | Emergency (ER) | payer MEDICAID, SELFPAY ==
[2018-05-04 16:41] VITALS: BP 122/72; PULSE 74; RESP 18; TEMP 37.2; O2SAT 98; BMI 31.6
[2018-05-04] MEDS: 0.9% Normal Saline 1,000 ML 1000 ML IV (17:25)
--- NOTE | 2018-05-04 17:28 | CT_ITS ---
STUDY: CT ABDOMEN AND PELVIS WITHOUT CONTRAST REASON FOR EXAM: Female, 27 years old. Umbilical abscess. Recent tubal ligation. Postop infection. RADIATION DOSAGE (If Supplied By Facility): CTDIvol = ( 12.69 ) mGy, DLP = ( 606.56 ) mGycm TECHNIQUE: Transaxial images were obtained from the dome of the diaphragm to the symphysis pubis without oral contrast, and without intravenous contrast. Sagittal and coronal images were reconstructed. Individualized dose optimization techniques were used for this CT. COMPARISON: Abdominal ultrasound, December 30, 2017. FINDINGS: The visualized lung bases are unremarkable. The visualized portions of the heart are within normal limits. Normal liver. The gallbladder is partially contracted but otherwise unremarkable. Normal spleen. Normal pancreas. Normal bilateral adrenal glands. Normal right kidney. Normal left kidney. Normal visualized stomach. Normal small intestine. Feces is seen throughout otherwise normal colon. The appendix is visualized and appears normal. Normal abdominal aorta. Normal inferior vena cava. Normal retroperitoneum. Normal urinary bladder. Uterus is anteverted and tilted to the right. There is evidence of tubal ligation clips. There is no adnexal mass. There is no pelvic lymphadenopathy. No free air or free fluid is seen within the peritoneal cavity. Umbilical hernia of omental fat. There is increase density within the umbilical region suggesting inflammation. There is no distinct abscess. Abdominal wall is otherwise unremarkable. Normal osseous structures. CT/Abdomen/Pelvis without Cont IMPRESSION: 1. Umbilical hernia with marked stranding of the surrounding subcutaneous fat. Question inflammatory process or infection. No distinct abscess is noted. 2. Otherwise normal CT of the abdomen and pelvis. Electronically Signed: Jeff Dubon DO at 17:52 EDT Tel [phone], Service support ,
[2018-05-04 17:46] LABS: Anion Gap 5 (5-15); BUN 13 mg/dL (7-18); Calcium,Total 8.9 mg/dL (8.5-10.1); Chloride 107 mmol/L (98-107); Creatinine, Serum 0.81 mg/dL (0.55-1.02); EST Glomerular Filtration Rate 90 mL/min (>60); Est Glom Filt Rate - Afr Amer 109 mL/min (>60); Estimated Creatinine Clearance 87.06 ml/min; Glucose 95 mg/dL (74-106); Potassium 3.8 mmol/L (3.5-5.1); Sodium Level 141 mmol/L (136-145)
[2018-05-04 17:53] LABS: Absolute Lymphocyte Count 2.55 X10^3/ul (0.83-4.51); Absolute Neutrophil Count 5.3 X10^3/uL (2.0-7.7); Basophil# 0.04 X10^3/uL; Basophil% 0.5 % (0-1); Eosinophil# 0.11 X10^3/uL; Eosinophils% 1.3 % (0-5); Hematocrit 36.5 % (37-47); Hemoglobin 10.9 g/dl (12.0-15.0); Lymphocyte # 2.55 X10^3/ul (4.0); Lymphocyte % 29.8 % (19-41); Mean Corp Hgb Conc 29.9 g/gl (32-36); Mean Corpuscular Hgb 21.6 pg (27.0-32.0); Mean Corpuscular Volume 72.4 fL (81-99); Mean Platelet Vol. 8.5 fl (6.2-12.0); Monocyte# 0.52 X10^3/uL; Monocyte% 6.1 % (0-10); Neutrophil # 5.34 X10^3/uL (2.7-7.7); Neutrophil % 62.2 % (47-70); Platelet Count 366 K/mm3 (150-450); RBC Distribution Width CV 20.2 % (11.6-14.6); RBC Distribution Width SD 53.8 fl (35.1-43.9); Red Blood Count 5.04 M/mm3 (4.2-5.4); White Blood Count 8.6 K/mm3 (4.4-11.0)
[2018-05-04 17:54] LABS: Differential Indicated SCAN CRITERIA MET; POSITIVE COUNT NO; POSITIVE DIFFERENTIAL NO; POSITIVE MORPHOLOGY YES
[2018-05-04 18:31] LABS: Anisocytosis 1+; Differential Comment SCANNED
--- NOTE | 2018-05-04 18:37 | ED.VISSUMM ---
- ER Visit Summary Date of Service: 05/04/18 Chief Complaint: Wound infection History of Present Illness: The patient is a [address] Jim Buckley and Dr. Jett. She reports that she had a tubal ligation March [address] Jim Buckley. Approximately April 05 she began having redness and drainage from umbilicus. She was placed on 10 days of clindamycin with no improvement. She was then placed on 10 days of Bactrim with no improvement. States that she continues to have a sharp pain is 710 at worst and 410 currently. Is worsened by nothing relieved by shower. She denies any nausea, vomiting, fever, chills, or other constitutional symptoms. Physical Examination: Vitals: Stable. Afebrile. General: Well-nourished and well-developed. Head: Normocephalic atraumatic. Neck: Supple, no lymphadenopathy. No JVD. Nontender. Cardiovascular: Regular rate and rhythm. No murmurs. Respiratory: No respiratory distress. Clear to auscultation bilaterally. Abdominal: Umbilicus has no redness. There is a small amount of what appears to be serous drainage. There is no induration or fluctuance. Soft, nontender, nondistended, normal bowel sounds. No guarding, rebound, or peritoneal signs. Back: Nontender. Extremities: Nontender, no edema. Skin: Normal color, no rash. Neurologic: Alert and oriented ?3. Cranial nerves II through XII are intact. Normal strength and sensation. Psych: Normal affect. Test Results: CBC is more for an H&H 10.9 36.5. Chem-[address] flank shows an umbilical hernia with stranding of the surrounding subcutaneous fat. Emergency Department Course and Treatment: Patient was initially started on vancomycin IV while I awaited the CT. She refused pain or nausea medications. Treatment Plan: Patient was discussed with Dr. Jim Buckley who asked that I refer her to general surgery. Patient was then discussed with Dr. Shetty who asked that we place her on Cipro. He will see her in the office tomorrow morning at 8:00. She will be discharged prescription for Cipro. Disposition: To home in improved and stable condition. Impression: 1. Umbilical hernia. 2. Status post bilateral tubal ligation March 29. This note was generated with [employer] software. It may contain incorrect words, spelling, and punctuation that were not noted in review of the chart prior to signing ED Disposition - Plan for ED Patient: Disposition: Home or Assisted Living Chief Complaint: Wound Check Instructions: What Is a Hernia? Prescriptions: Ciprofloxacin [Cipro] 500 mg PO BID #14 tablet Referrals: Parth Shetty MD [STAFF PHYSICIAN] - 05/05/18 8:00 am
--- NOTE | 2018-05-04 18:48 | ED.RN ---
VANCOMYCIN NOT COMPLETED, STOPPED BY DR. ADAMS
[2018-05-04 18:49] VITALS: BP 111/79; PULSE 56; PULSE 58; RESP 17; RESP 18; O2SAT 98; O2SAT 99
[2018-05-04] MEDS: Ciprofloxacin 500 MG Tablet PO (18:57)
== END 2018-05-04 18:57 | disposition home or self-care (01) ==
PROVIDERS: Emergency Provider Emergency Medicine; Family Provider Internal Medicine; PCP Internal Medicine
DX: K42.9 Umbilical hernia without obstruction or gangrene (principal); Z98.51 Tubal ligation status; F32.9 Major depressive disorder, single episode, unspecified; F41.9 Anxiety disorder, unspecified; Z79.899 Other long term (current) drug therapy
CPT/HCPCS: 74176; 80048; 85025; 96361; 96365; 99284; J7030; J7050

== ENCOUNTER → 2018-05-10 15:00 | Outpatient (CLI) | payer MEDICAID, SELFPAY ==
[2018-05-15 07:10] LABS: HPV Reflexed? NOT INDICATED
== END ==
PROVIDERS: Family Provider Internal Medicine; PCP Internal Medicine; Visit Provider Obstetrics & Gynecology
DX: Z12.4 Encounter for screening for malignant neoplasm of cervix (principal)
CPT/HCPCS: 88175; G0145

== ENCOUNTER → 2018-10-03 09:16 | Outpatient (CLI) | payer MEDICAID, SELFPAY ==
[2018-08-30 14:17] VITALS: BMI 32.9
--- NOTE | 2018-10-03 09:19 | US_ITS ---
STUDY: ABDOMINAL ULTRASOUND - RIGHT UPPER QUADRANT REASON FOR VISIT: Female, 28 years old. Right upper quadrant pain TECHNIQUE: Ultrasound evaluation of the right upper quadrant was performed with real-time and static mart-scale imaging. TECHNICAL QUALITY: Adequate. COMPARISON: 12/30/2017 FINDINGS: Liver: The liver measures 12.6 cm. There is normal echogenicity of the liver. The bile ducts are within normal limits. There is hepatic color flow. The direction of portal flow is hepatopetal. There is no demonstrated mass lesion. Gallbladder: Partially distended gallbladder. The gallbladder wall measures 2 mm. There is a positive sonographic Nicholson's sign. There is no pericholecystic fluid. There are multiple echogenic structures within the gallbladder, consistent with multiple gallstones. Common Bile Duct (C.B.D.): The common bile duct measures 4 mm. Pancreas: There is normal echogenicity of the visualized pancreas. There is no demonstrated pancreatic mass or cyst. Right Kidney: Normal size of the right kidney. The right kidney measures 11.3 cm. Normal renal cortex. The right cortex measures 1.1 cm. There is no demonstrated renal mass or cyst. There is no right hydronephrosis. US/Abdomen Limited IMPRESSION: 1. Cholelithiasis and sonographic Nicholson sign but no gallbladder wall thickening or pericholecystic fluid; indeterminate for cholecystitis. 2. No intrahepatic or extrahepatic bile duct dilation. Electronically Signed: Fercho Villegas MD at 15:27 EST , Service support ,
[2018-10-03 11:52] LABS: AST(SGOT) 22 U/L (15-37); Alanine Aminotransfer ALT/SGPT 37 U/L (13-56); Albumin, Serum 3.8 g/dL (3.2-5.0); Alkaline Phosphatase 69 U/L (45-117); Protein, Total 7.8 g/dL (6.4-8.2)
== END ==
PROVIDERS: Family Provider Internal Medicine; PCP Internal Medicine
DX: K80.20 Calculus of gallbladder without cholecystitis without obstruction (principal); R10.11 Right upper quadrant pain
CPT/HCPCS: 36415; 76705; 80076

== ENCOUNTER → 2018-10-05 07:09 | Outpatient (CLI) | payer MEDICAID, SELFPAY ==
[2018-08-30 14:17] VITALS: BMI 32.9
--- NOTE | 2018-10-05 07:11 | NM_ITS ---
CLINICAL: 28-year-old female with reported history of right upper quadrant abdominal pain. RADIONUCLIDE HEPATOBILIARY SCINTIGRAPHY COMPARISON: Abdominal ultrasound report 10/03/2017 FINDINGS: Following the intravenous administration of 5.1 mCi of 99m Tc Mebrofenin, hepatobiliary images reveal: 1. Relatively prompt and homogeneous radiopharmaceutical concentration is noted by a normal sized liver. No parenchymal defects are identified. 2. Gallbladder activity is identified at 30 minutes post radiopharmaceutical administration. 3. Small intestinal tract is observed at 10 minutes following tracer injection. 4. Washout of the radiopharmaceutical by the hepatic parenchyma appears qualitatively normal. The patient was administered a fatty meal (8 ounces BOOST-30 grams fat). The post fatty meal consumption gallbladder ejection fraction calculated at 31 minutes was noted to be 32.0 % (normal greater than 30%). There is evidence of mild refilling of the gallbladder following fatty meal induced gallbladder ejection. NM/Hepatobilliary Imaging IMPRESSION: 1. A gallbladder ejection fraction calculated to be greater than 30% following the administration of a consumed fatty meal makes the probability of functional hepatobiliary disease (gallbladder dyskinesia) and/or organic hepatobiliary disease (chronic acalculous cholecystitis and/or cystic duct syndrome) to be low. (Cali and Yousif, J Nucl Med 43: 1603, 2002). 2. The visualized normal gallbladder ejection fraction with refilling of the gallbladder following fatty meal consumption, may represent the presence of Sphincter of Oddi dysfunction. Correlation with Sphincter of Oddi manometry may be indicated. Electronically Signed: Jad Adler DO at 22:34 EST Tel , Service support ,
== END ==
PROVIDERS: Family Provider Internal Medicine; PCP Internal Medicine
DX: K80.20 Calculus of gallbladder without cholecystitis without obstruction (principal); R10.11 Right upper quadrant pain
CPT/HCPCS: 78226; A9537

== ENCOUNTER 2019-02-26 18:31 | Emergency (ER) | payer MEDICAID, SELFPAY ==
[2019-01-01 14:48] VITALS: BMI 32.9
[2019-02-26 18:34] VITALS: BP 122/81; PULSE 69; PULSE 71; RESP 17; RESP 18; TEMP 36.3; O2SAT 97; O2SAT 98; BMI 30.9
--- NOTE | 2019-02-26 19:07 | ED.DCSUM_ITS ---
History of Present Illness Chief Complaint: Abd Pain Informant: Patient Onset: Days, - - Per old records patient's had problems for months Context: - - Varies Timing: Intermittent, Waxes and wanes Quality: Pain Location: Midline supraumbilical Current Severity: Severe Maximum Severity: Severe Worsened by: Movement touch Relieved by: Nothing Associated Symptoms: nausea Narrative: Patient is a 28-year-old female who has a midline supraumbilical/umbilical hernia. She has had problems for months. Prior notes were read. Surgery was performed at [facility]. She denies fever, chills night sweats. She denies vomiting. She states last bowel movement was yesterday and normal. She has no other complaints. Prior similar symptoms: Yes Recent Illness/Hospitalization: No - Past Medical History (1) Umbilical hernia Status: Acute (2) Acid reflux Status: Acute (3) Anxiety and depression Status: Acute (4) Hepatomegaly Status: Acute Comment: GI consult (5) Hx of tubal ligation Status: Acute Comment: 03/29/2018 (6) Postoperative infection Status: Acute Comment: bactrim (7) Hemorrhoids Status: Chronic Past Medical History - Allergies and Home Meds Allergies/Adverse Reactions: Allergies dicloxacillin Allergy (Mild, Verified 02/26/19 18:32) Other watermelon Allergy (Mild, Verified 02/26/19 18:32) Other Primary Care Physician: Jose Jett MD [Primary Care Provider] - Prior records reviewed: Yes Surgical History: - - Laparoscopic surgery Lives: With Family Smoking Status: Never smoker Alcohol: None Review of Systems General: Denies: Chills, Fever, Sweats Cardiovascular: Denies: Chest pain, Palpitations Respiratory: Denies: Dyspnea, Cough, Dyspnea on exertion Gastrointestinal: Reports: Abdominal pain, Nausea. Denies: Vomiting, Diarrhea, Constipation, Melena, Hematochezia Genitourinary: Denies: Dysuria, Hematuria, Frequency Musculoskeletal: Denies: Myalgias, Arthralgias, Neck pain, Back pain, Extremity Pain Skin: Denies: Rash, Wounds Hematologic: Denies: Easy bruising, Easy bleeding Allergy: Denies: Uticaria, Swelling of the mouth Physical Exam Vital Signs/Narrative: Vital Signs Temp Pulse Resp BP Pulse Ox 02/26/19 18:34 97.4 F L 71 18 122/81 H 97 Inital Vital Signs reviewed: Yes General: Well nourished, Well developed, No Acute Distress Head: Normocephalic, Atraumatic Eyes: Perrl, EOMI. Negative for: Pale conjunctiva, Scleral icterus, - ENT: Moist mucous membranes, No rhinorrhea Neck: Supple, Nontender Cardiovascular: Regular rate, Regular rhythm, No murmurs Respiratory: No distress, CTA bilaterally, Chest nontender Abdomen: Soft, Nondistended, Normal bowel sounds, No masses, Tender, Umbilical hernia, Hernia reducible. Negative for: Guarding, Rebound tenderness, Hepatomegaly, Splenomegaly, Mass Skin: Normal color, No rash. Negative for: Cyanosis, Jaundice Neurological: Alert, Oriented x3, Cranial nerves II-XII grossly intact, Normal Strength, Normal Sensation Psychological: Normal affect, Normal Mood Diagnostic/Tx/Re-eval - Medical Decision Making Patient has a reducible buccal hernia. She and she has no symptoms of obstruction and her exam is otherwise unremarkable she was discharged with instruction to follow-up with the [facility] surgeons. She was given Dr. Jad De Dios's name. ED Disposition - Plan for ED Patient: Disposition: Home or Assisted Living Diagnosis: Reducible umbilical hernia Instructions: What Is a Hernia? Referrals: Jose Jett MD [Primary Care Provider] - As Needed Jad De Dios MD [STAFF PHYSICIAN] - 1-2 Weeks
[2019-02-26 19:14] VITALS: BP 115/78; PULSE 80; RESP 14; O2SAT 97
== END 2019-02-26 19:15 | disposition home or self-care (01) ==
PROVIDERS: Emergency Provider Emergency Medicine; Family Provider Internal Medicine; PCP Internal Medicine
DX: K42.9 Umbilical hernia without obstruction or gangrene (principal); R11.0 Nausea; K21.9 Gastro-esophageal reflux disease without esophagitis; F32.9 Major depressive disorder, single episode, unspecified; F41.9 Anxiety disorder, unspecified; Z88.0 Allergy status to penicillin; Z79.899 Other long term (current) drug therapy; Z98.51 Tubal ligation status
CPT/HCPCS: 99283

== ENCOUNTER → 2019-05-13 13:04 | Outpatient (CLI) | payer MEDICAID, SELFPAY ==
[2019-05-13 11:05] VITALS: BMI 30.9
[2019-05-13 18:26] LABS: Chlamydia Trachomatis by PCR Negative (Negative); Neisserai gonorrhoeae by PCR Negative (Negative); Probe Check PASS; Sample Adequacy Control PASS; Specimen Processing Control PASS
== END ==
PROVIDERS: Family Provider Internal Medicine; PCP Internal Medicine; Referring Provider Obstetrics & Gynecology; Visit Provider Obstetrics & Gynecology
DX: N93.0 Postcoital and contact bleeding (principal)
CPT/HCPCS: 87070; 87205; 87491; 87591

== ENCOUNTER → 2019-06-21 11:10 | Outpatient (CLI) | payer MEDICAID, SELFPAY ==
[2019-05-13 11:05] VITALS: BMI 30.9
--- NOTE | 2019-06-21 11:40 | US_ITS ---
HISTORY: Postcoital bleeding and pain. LMP 06/03/2019 80 images. Obtained endovaginally. 48 images obtained transabdominally. [address] scan of the abdomen and pelvis was performed May 04, 2018 Findings: Transabdominal imaging: The uterus measures 8.1 x 3.8 x 5.7 cm. Transabdominally the endometrial stripe is homogeneous 7 mm. Myometrium is homogeneous. The urinary bladder is adequately distended. The right ovary measures 2.6 x 1.8 x 2.6 cm. 19 mm follicle is present within the right ovary. Color Doppler imaging is nondiagnostic for flow on transabdominal imaging to the right ovary. Pulse-wave Doppler imaging suggests probable arterial flow. The left ovary transabdominally measures 2.2 x 2.2 x 1.5 cm. Color Doppler imaging is nondiagnostic for flow of the left ovarian parenchyma. Pulse-wave Doppler imaging is suggestive of probable arterial flow to the left ovarian parenchyma. Endovaginal imaging: Myometrium is homogeneous. Tissue is perceived extending down into the endocervical canal. It is of a similar echotexture of the tissue within the uterus. The endometrial stripe is measured at 11 mm. A tiny amount of fluid is present within the endometrial canal within the uterine fundus. An echogenic focus of tissue within the endocervical canal does cause some shadowing and measures 2 mm. A tiny nabothian cyst is suggested. The right ovary measures 3.3 x 2.2 x 2.6 cm. A contains multiple follicles. The largest of these exophytic follicles is 2.3 cm. Color and pulsed-wave Doppler imaging demonstrates arterial and venous flow to the right ovarian parenchyma. The left ovary is well demonstrated. The left ovary measures 2.5 x 1.5 x 2.1 cm. Color Doppler imaging is nondiagnostic for flow to the left ovarian parenchyma. Pulse-wave Doppler imaging suggests arterial flow to the left ovarian parenchyma. Color Doppler imaging over the endocervical canal and the tissue within the endocervical canal is not provided. US/Transvaginal Non- IMPRESSION: Follicles in both ovaries. Many follicles on the right ovary there is slightly larger, but still within the range of normal for patient stated age 28 years. Several images suggest that there is some tissue within the endocervical canal that has a similar echotexture to the endometrium. This may represent blood. There is also some fluid within the endometrial canal within the uterine fundus. This also likely represents blood. at [id number] Reported and signed by: Alex Cooley MD Electronically Signed: Alex Cooley MD at 3:45 EDT Tel , Service support ,
== END ==
PROVIDERS: Family Provider Internal Medicine; PCP Internal Medicine; Referring Provider Obstetrics & Gynecology; Visit Provider Obstetrics & Gynecology
DX: N93.0 Postcoital and contact bleeding (principal)
CPT/HCPCS: 76830; 76856; 93976

== ENCOUNTER → 2020-12-24 14:00 | Outpatient (CLI) | payer MEDICAID, SELFPAY ==
[2020-12-24 13:34] VITALS: BMI 29.0
[2020-12-24 15:27] LABS: Absolute Lymphocyte Count 2.23 X10^3/uL (0.83-4.51); Absolute Neutrophil Count 5.5 X10^3/uL (2.0-7.7); Basophil# 0.03 X10^3/uL; Basophil% 0.4 % (0-1); Eosinophil# 0.04 X10^3/uL; Eosinophils% 0.5 % (0-5); Hematocrit 42.9 % (37-47); Hemoglobin 14.3 g/dL (12.0-15.0); Lymphocyte # 2.23 X10^3/ul (4.0); Lymphocyte % 27.1 % (19-41); Mean Corp Hgb Conc 33.3 g/dL (32-36); Mean Corpuscular Hgb 30.4 pg (27.0-32.0); Mean Corpuscular Volume 91.3 fL (81-99); Mean Platelet Vol. 9.3 fl (6.2-12.0); Monocyte# 0.37 X10^3/uL; Monocyte% 4.5 % (0-10); NRBC Flagged by Analyzer 0 % (0-5); Neutrophil # 5.54 X10^3/uL (2.7-7.7); Neutrophil % 67.3 % (47-70); Platelet Count 299 K/mm3 (150-450); RBC Distribution Width CV 13.5 % (11.6-14.6); RBC Distribution Width SD 45.2 fl (35.1-43.9); White Blood Count 8.2 K/mm3 (4.4-11.0)
[2020-12-24 16:49] LABS: ALB/GLOB Ratio 1.1 RATIO (0.9-2.4); AST(SGOT) 14 U/L (15-37); Alanine Aminotransfer ALT/SGPT 26 U/L (13-56); Albumin, Serum 4.2 g/dL (3.2-5.0); Alkaline Phosphatase 47 U/L (45-117); Anion Gap 5 (5-15); BUN 15 mg/dL (7-18); BUN/Creat Ratio 20.1 RATIO (10-20); Calcium,Total 9.6 mg/dL (8.5-10.1); Chloride 102 mmol/L (98-107); Creatinine, Serum 0.75 mg/dL (0.55-1.02); EST Glomerular Filtration Rate 97 mL/min (>60); Est Glom Filt Rate - Afr Amer 118 mL/min (>60); Globulin 3.8 g/dL (2.2-4.2); Glucose 84 mg/dL (74-106); Potassium 4.3 mmol/L (3.5-5.1); Sodium Level 137 mmol/L (136-145)
== END ==
PROVIDERS: PCP Internal Medicine; Referring Provider Internal Medicine; Visit Provider Internal Medicine
DX: F41.8 Other specified anxiety disorders (principal)
CPT/HCPCS: 36415; 80053; 85025

== ENCOUNTER → 2021-01-14 06:01 | Outpatient (CLI) | payer MEDICAID, SELFPAY ==
[2020-12-24 13:34] VITALS: BMI 29.0
[2021-01-14 07:59] LABS: hCG Titer Quant., Serum < 1 mIU/mL (1-3)
== END ==
PROVIDERS: PCP Internal Medicine; Referring Provider Obstetrics & Gynecology; Visit Provider Obstetrics & Gynecology
DX: Z32.01 Encounter for pregnancy test, result positive (principal)
CPT/HCPCS: 36415; 84702

== ENCOUNTER 2021-12-27 13:12 | Outpatient (CLI) | payer MEDICAID, SELFPAY ==
[2021-12-27 15:17] LABS: Absolute Lymphocyte Count 1.77 X10^3/uL (0.83-4.51); Absolute Neutrophil Count 4.2 X10^3/uL (2.0-7.7); Basophil# 0.03 X10^3/uL; Basophil% 0.5 % (0-1); Eosinophil# 0.05 X10^3/uL; Eosinophils% 0.8 % (0-5); Hematocrit 42.4 % (37-47); Hemoglobin 13.9 g/dL (12.0-15.0); Lymphocyte # 1.77 X10^3/ul (0.83-4.51); Lymphocyte % 27.4 % (19-41); Mean Corp Hgb Conc 32.8 g/dL (32-36); Mean Corpuscular Volume 91.4 fL (81-99); Mean Platelet Vol. 8.9 fl (6.2-12.0); Monocyte# 0.43 X10^3/uL; Monocyte% 6.6 % (0-10); NRBC Flagged by Analyzer 0 % (0-5); Neutrophil # 4.17 X10^3/uL (2.7-7.7); Neutrophil % 64.4 % (47-70); Platelet Count 362 K/mm3 (150-450); RBC Distribution Width CV 13.6 % (11.6-14.6); RBC Distribution Width SD 46.2 fl (35.1-43.9); Red Blood Count 4.64 M/mm3 (4.2-5.4); White Blood Count 6.5 K/mm3 (4.4-11.0)
[2021-12-27 15:39] LABS: AST(SGOT) 17 U/L (15-37); Alanine Aminotransfer ALT/SGPT 32 U/L (13-56); Alkaline Phosphatase 43 U/L (45-117); Anion Gap 7 (5-15); BUN 16 mg/dL (7-18); BUN/Creat Ratio 20.5 RATIO (10-20); Calcium,Total 8.8 mg/dL (8.5-10.1); Chloride 104 mmol/L (98-107); Cholesterol 161 mg/dL (200); Creatinine, Serum 0.78 mg/dL (0.55-1.02); EST Glomerular Filtration Rate 92 mL/min (>60); Est Glom Filt Rate - Afr Amer 111 mL/min (>60); Globulin 3.9 g/dL (2.2-4.2); Glucose 89 mg/dL (74-106); High Density Lipoprotein 54 mg/dL; Potassium 3.7 mmol/L (3.5-5.1); Protein, Total 7.9 g/dL (6.4-8.2); Sodium Level 140 mmol/L (136-145); Triglycerides 64 mg/dL; Very Low Density Lipoprotein 13 mg/dL (5-40)
== END 2021-12-27 23:59 | disposition home or self-care (01) ==
LOC: BIMLAB 13:13
PROVIDERS: PCP Internal Medicine; Referring Provider Internal Medicine; Visit Provider Internal Medicine
DX: Z00.00 Encounter for general adult medical examination without abnormal findings (principal)
CPT/HCPCS: 36415; 80053; 80061; 85025

== ENCOUNTER → 2022-04-14 | Outpatient (CLI) | payer MEDICAID, SELFPAY ==
[2022-04-14 15:57] LABS: Absolute Lymphocyte Count 2.29 X10^3/uL (0.83-4.51); Basophil# 0.02 X10^3/uL; Basophil% 0.3 % (0-1); Eosinophil# 0.09 X10^3/uL; Eosinophils% 1.3 % (0-5); Hematocrit 39.4 % (37-47); Hemoglobin 13.3 g/dL (12.0-15.0); Lymphocyte # 2.29 X10^3/ul (0.83-4.51); Lymphocyte % 33.7 % (19-41); Mean Corp Hgb Conc 33.8 g/dL (32-36); Mean Corpuscular Hgb 30.5 pg (27.0-32.0); Mean Corpuscular Volume 90.4 fL (81-99); Mean Platelet Vol. 8.7 fl (6.2-12.0); Monocyte# 0.41 X10^3/uL; NRBC Flagged by Analyzer 0 % (0-5); Neutrophil # 3.97 X10^3/uL (2.7-7.7); Neutrophil % 58.6 % (47-70); Platelet Count 323 K/mm3 (150-450); RBC Distribution Width CV 12.7 % (11.6-14.6); Red Blood Count 4.36 M/mm3 (4.2-5.4); White Blood Count 6.8 K/mm3 (4.4-11.0)
[2022-04-14 16:31] LABS: Thyroid Stim Hormone (TSH) 2.61 uIU/mL (0.358-3.74)
== END | disposition home or self-care (01) ==
PROVIDERS: PCP Internal Medicine; Visit Provider Nurse Practitioner Women's Health
DX: N92.1 Excessive and frequent menstruation with irregular cycle (principal); Z13.29 Encounter for screening for other suspected endocrine disorder
CPT/HCPCS: 36415; 84443; 85025

== ENCOUNTER → 2022-04-15 | Outpatient (CLI) | payer MEDICAID, SELFPAY ==
[2022-04-18 20:07] LABS: Chlamydia By Nucleic Acid AMP Negative (Negative)
[2022-04-19 12:01] LABS: HPV APTIMA, High Risk Negative (Negative)
[2022-04-19 13:51] LABS: Gonococcus By Nucleic Acid AMP Negative (Negative)
== END | disposition home or self-care (01) ==
LOC: LABSPEC 09:58
PROVIDERS: PCP Internal Medicine; Visit Provider Nurse Practitioner Women's Health
DX: Z12.4 Encounter for screening for malignant neoplasm of cervix (principal); Z11.3 Encounter for screening for infections with a predominantly sexual mode of transmission
CPT/HCPCS: 87491; 87591; 87624; 88175; G0145

== ENCOUNTER → 2022-04-18 | Outpatient (CLI) | payer MEDICAID, SELFPAY ==
--- NOTE | 2022-04-18 12:25 | US_ITS ---
STUDY: ULTRASOUND OF THE FEMALE PELVIS - COMPLETE REASON FOR EXAM: Female, 31 years old. menorrhagia TECHNIQUE: Endovaginal. Transvaginal US was obtained to better visualized the ovaries. COMPARISON: 06/21/2019. FINDINGS: The uterus is anteverted and is tilted to the left side of the pelvis. The uterus measures 8.2 x 4.4 cm. Normal uterine cervix. The endometrium measures 7 mm in thickness, and is heterogeneous (striated). There is no demonstrated endometrial mass. There is no demonstrated myometrial mass. I.U.D. - The patient does not have an I.U.D. The right ovary is visualized. The right ovary measures 2.7 x 2.2 cm. There is no right ovarian cyst or ovarian mass. There is no visualized right adnexal mass or complex lesion. There is normal arterial and normal venous vascularity. The left ovary is visualized. The left ovary measures 2.8 x 2.3 cm. There is no left ovarian cyst or ovarian mass. There is no visualized left adnexal mass or complex lesion. There is normal arterial and normal venous vascularity. There is minimal fluid in the cul-de-sac. Cystic area in the pelvis measuring 18 x 17 mm, 22 x 16 mm and 12 x 12 mm. Urinary bladder volume is 576 cc. US/Transvaginal Non- IMPRESSION: Stable cystic right adnexal lesions. These may be stable paraovarian cyst. Electronically Signed: Stan Johnson MD at 17:48 EDT ,
--- NOTE | 2022-04-18 12:25 | US_ITS ---
STUDY: ULTRASOUND OF THE FEMALE PELVIS - COMPLETE REASON FOR EXAM: Female, 31 years old. menorrhagia TECHNIQUE: Endovaginal. Transvaginal US was obtained to better visualized the ovaries. COMPARISON: 06/21/2019. FINDINGS: The uterus is anteverted and is tilted to the left side of the pelvis. The uterus measures 8.2 x 4.4 cm. Normal uterine cervix. The endometrium measures 7 mm in thickness, and is heterogeneous (striated). There is no demonstrated endometrial mass. There is no demonstrated myometrial mass. I.U.D. - The patient does not have an I.U.D. The right ovary is visualized. The right ovary measures 2.7 x 2.2 cm. There is no right ovarian cyst or ovarian mass. There is no visualized right adnexal mass or complex lesion. There is normal arterial and normal venous vascularity. The left ovary is visualized. The left ovary measures 2.8 x 2.3 cm. There is no left ovarian cyst or ovarian mass. There is no visualized left adnexal mass or complex lesion. There is normal arterial and normal venous vascularity. There is minimal fluid in the cul-de-sac. Cystic area in the pelvis measuring 18 x 17 mm, 22 x 16 mm and 12 x 12 mm. Urinary bladder volume is 576 cc. US/Pelvic (Non ) IMPRESSION: Stable cystic right adnexal lesions. These may be stable paraovarian cyst. Electronically Signed: Stan Johnson MD at 17:48 EDT ,
== END | disposition home or self-care (01) ==
LOC: US 12:24
PROVIDERS: PCP Internal Medicine; Referring Provider Nurse Practitioner Women's Health; Visit Provider Nurse Practitioner Women's Health
DX: N92.1 Excessive and frequent menstruation with irregular cycle (principal)
CPT/HCPCS: 76830; 76856

== ENCOUNTER → 2024-02-19 | Outpatient (CLI) | payer MEDICAID, SELFPAY ==
[2024-02-19 12:44] LABS: Absolute Lymphocyte Count 2.78 X10^3/uL (0.83-4.51); Absolute Neutrophil Count 3.3 X10^3/uL (2.0-7.7); Basophil# 0.04 X10^3/uL; Basophil% 0.6 % (0-1); Eosinophil# 0.11 X10^3/uL; Eosinophils% 1.7 % (0-5); Hematocrit 39.4 % (37-47); Lymphocyte # 2.78 X10^3/ul (0.83-4.51); Lymphocyte % 42.4 % (19-41); Mean Corpuscular Volume 87.8 fL (81-99); Mean Platelet Vol. 8.9 fl (6.2-12.0); Monocyte# 0.32 X10^3/uL; Monocyte% 4.9 % (0-10); NRBC Flagged by Analyzer 0 % (0-5); Neutrophil % 50.2 % (47-70); Platelet Count 305 K/mm3 (150-450); RBC Distribution Width CV 12.2 % (11.6-14.6); RBC Distribution Width SD 39.2 fl (35.1-43.9); Red Blood Count 4.49 M/mm3 (4.2-5.4); White Blood Count 6.6 K/mm3 (4.4-11.0)
[2024-02-19 12:55] LABS: ALB/GLOB Ratio 1.2 RATIO (0.9-2.4); AST(SGOT) 27 U/L (15-37); Alanine Aminotransfer ALT/SGPT 32 U/L (13-56); Albumin, Serum 3.6 g/dL (3.2-5.0); Alkaline Phosphatase 42 U/L (45-117); Anion Gap 2 (5-15); BUN 8 mg/dL (7-18); BUN/Creat Ratio 9.7 RATIO (10-20); Calcium,Total 8.8 mg/dL (8.5-10.1); Chloride 107 mmol/L (98-107); Cholesterol 115 mg/dL (200); Creatinine, Serum 0.82 mg/dL (0.55-1.02); EST Glomerular Filtration Rate 86 mL/min (>60); Est Glom Filt Rate - Afr Amer 104 mL/min (>60); Globulin 3.1 g/dL (2.2-4.2); Glucose 83 mg/dL (74-106); High Density Lipoprotein 57 mg/dL; Potassium 3.5 mmol/L (3.5-5.1); Protein, Total 6.7 g/dL (6.4-8.2); Sodium Level 138 mmol/L (136-145); Triglycerides 40 mg/dL; Very Low Density Lipoprotein 8 mg/dL (5-40)
== END | disposition home or self-care (01) ==
LOC: BIMLAB 11:47
PROVIDERS: PCP Internal Medicine; Visit Provider Internal Medicine
DX: Z00.00 Encounter for general adult medical examination without abnormal findings (principal)
CPT/HCPCS: 36415; 80053; 80061; 85025

== ENCOUNTER 2024-11-25 08:00 | Outpatient (RCR) | payer MEDICAID, SELFPAY ==
--- NOTE | 2024-11-25 11:29 | BH.MDN_ITS ---
Multi-Disciplinary Note Note 60-min Individual: Time Started:: 08:45 Date: 11/25/24 Purpose of session/treatment goals addressed:: Used the session to identify treatment plan goals and obtain psychosocial hx. Eye Contact:: Good Motor Activity:: Restless Speech:: Pressured Mood:: Anxious Affect:: Congruent Thoughts:: Logical, Racing, Other (loose associations) and No evidence of hallucinations/delusions noted Staff Interventions:: motivational interviewing, rapport building, strengths perspective, completed risk assessment / safety planning and goal setting Client Response:: Pt states that she has been struggling with significant anxiety and mood instability impacting her daily functioning. States feeling more comfortable about returning to tx than she had this morning and went on to describe struggling with leaving her house due to significant levels of anxiety. Pt reports a hx of therapy and previously completed the IOP program in 2018. She has been working with Dr. Browne since August 2024 who diagnosed pt with Borderline Personality Disorder which pt has been connecting with. She is knowledgeable about mental health diagnoses and recognizes how her underlying trauma may be impacting her mood stability. Also reports issues with sensory overload, racing thoughts, and experiencing very intense emotions. Stated that she had a blackout rage experience prior to inpatient hospitalization on 11/06/24. When asked about goals for tx she states I want to better regulate my emotions and get to a place where I can feel like I?m able to function again. Refer to pre-admission assessment, psychosocial, and psych eval for events that led to admission. Pt was admitted to psychiatric facility 11/06/24-. Reports this was due in large part to psychosocial stressors including significant relationship stress. Currently reports moderate depression, anxiety, racing thoughts, paranoia, and mood swings. Risks/Concerns:: Daily symptom tracker notes no suicidal ideations, plan, or intent. Hx of SI with plan/intent, however none at present. Progress Toward Goals/Plan:: No progress noted as this was her first day in [facility]. Presents today with paranoia, racing thoughts, mood swings, and low motivation. Pt is still dealing with relationship conflict and psychosocial stressors which led to hospitalization. Will continue to monitor daily symptom tracker for SI. Completed [facility] this AM. Reports no current SI. Will be admitted to [facility] level of care to maintain safety, prevent decompensation, and improve functioning to return to work. Time Stopped:: 10:00
--- NOTE | 2024-11-26 11:30 | BH.NA_ITS ---
Physical Data Vital Signs Pulse Rate: 87 Blood Pressure: 133/82 Height/Weight Height: 1.57 m Weight:: 54.431 kg Weight in Pounds: 120.0 lbs Nutritional History Appetite Nutritional Instructions: Describe your appetite:: Fair Additional nutritional information:: Client reports a decreased appetite. Functional Assessment Sleep Pattern Describe any problems with sleeping: Client states she sleeps about 4 hours per night, stating she frequently has nightmares. Sensory/Communication Assess Communication Problems Do you have difficulty understanding what people are saying?: No Medical Problems/History Cardiac Conditions Cardiovascular: Other (See comments) (hypotension) Gastrointestinal Conditions Gastrointestinal: Other (See comments) (Celiac disease) Pain Assessment Do you have acute or chronic pain?: No Sexual History Do you have a history of sexually transmitted disease?: Yes (genital herpes) Family History Family History (Updated 02/19/24 @ 11:30 by Muriel Smith MA) Mother Endometrial cyst of ovary Basal cell carcinoma Grandmother Anxiety and depression Father Anxiety and depression Cancer Uncle Anxiety and depression Grandmother Cancer Diabetes Additional History Additional comments:: vitamin D deficiency Surgical History Surgical History Have you had any surgeries? If so, list type and date:: Yes (wisdom teeth, jesse, tubal, umbilical hernia) Substance Abuse Substance Abuse Please describe substance abuse in the last 30 days:: Client states she has been sober from alcohol for 2 years. Client states she did heavily drink alcohol a few years ago and has been through alcohol withdrawal before. Client denies tobacco use. Client has a history of some marijuana use but denies any substance use now. Client states she drinks 1-2 caffeinated drinks per day, usually pop or tea. Mental Status Summary Mental Status Significant Findings/Observations on Appearance and Mood:: Client is alert and oriented x 4. Client is casually groomed, appears very anxious, and colored with markers on paper during the assessment. Client makes fair eye contact. Client's voice had normal volume, but was pressured at times. Client makes logical associations in conversation. Client does admit to some auditory and visual hallucinations at times, seeing shadow people, hearing animal noises that aren't there, leaves blowing inside her house, etc. Client states she recently had a conversation with a voice that sounded like her daughter, but no one was actually home with her. Client reports some passive thoughts of , but denies SI and denies plan/intent. Suicide Assessment Suicidal Ideation Are you currently or have you been suicidal in the past?: Yes Suicidal Intentional Rating Scale (SIRS): Suicidal thoughts (past) (passive thoughts of at times, but denies SI intent/plan) Physician Notification Past Psychiatric History MH Treatment Hx Past Psychiatric Medications:: Prozac (started having hallucinations after she came off this) Zoloft, Remeron, Doxepin, Celexa, Buspar, Lamictal, Effexor, Abilify Age of first mental health symptoms: Client reports first having depression at age 14, but states she felt depressed at a younger age than that. Client has been diagnosed with bipolar disorder in the past, but states in August 2024 she was told by a psychiatrist that she actually has borderline personality disorder that is causing her symptoms. Describe (age, circumstance, etc) any past hospitalizations: [facility] 11/06/24-11/11/24 for SI, [facility] in July 2023 Current providers for mental health treatment (counselor, psychiatrist, egg caser, etc.): None. Fall Risk Assessment Age Age: Less than 60 Mental Status Mental Status: Willing & able to ask for assistance when needed Physical Status Physical Status: No problems Impairments Impairments: None Elimination Elimination: Continent AND independent Gait or Balance Gait or Balance: Walks independently Hx of Falls History of falls in the past 6 months: No known history Medications/Substances Medications/substances used within the past 24 hours or ordered to administer: None of the medications/substances list above Total Score Total Points:: 0 RN Summary of Impressions Impressions Recommendations Impressions: Psychiatric Issues: 1. Mood disorder, NOS (F39.0 2. Generalized anxiety disorder 3. Borderline personality disorder 4. History of alcohol use disorder 5. Primary support and financial issues Level of Care How do the client's current symptoms and functional deficits support need for this level of care?: Client was in IOP in 2017, and client returns at this time after a hospitalization at [facility] in early November 2024 for SI. Client reports having black out moments, and states she had an intense black out moment with rage before her hospitalization. Client states she has had some auditory and visual hallucinations off and on for years, and states medication does not usually help. Client does report Effexor and Lamictal worked for a time period, but has been off of those meds for almost 2 years. Client states she currently has auditory hallucinations at times, stating she had a conversation with a voice that was her daughters but then realized her daughter wasn't there and she was actually home alone. Client's speech is pressured, and client makes poor eye contact during conversation. Client reports feeling depressed and having passive thoughts of like why am I here? but denies active SI and denies intent or plan. Client reports panic attacks several times a week and feels too anxious to leave her house. IOP will promote gains and prevent further decompensation.
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
[2024-11-26 11:56] VITALS: BP 133/82; PULSE 87
--- NOTE | 2024-11-26 12:09 | BH.DR.ITP ---
Initial Treatment Plan Patient Information Visit Information: ADMISSION DATE: EXPECTED LOS: 4-6 weeks Problems/Symptoms Problem #1:: Mood instability Symptom:: Depression, irritability, anger episodes, emotional dysregulation, hopelessness, passive thoughts of , recent suicidal ideation, hypersomnia Problem #2:: Anxiety Symptom:: Worry, rumination, flashbacks, nightmares
--- NOTE | 2024-11-29 15:53 | BH.COMM ---
Communication Note Communication with Client Communication Note: No show/ no call for IOP today. Pt admitted to struggles with waking up and getting to IOP throughout the week. Pt was 2.5 hours late to IOP on 11/27/24 which again states is due to a mixture of social anxiety and getting motivated in the AM. Message left with patient. Encouraged her to call if she would like to remain in the program. She is scheduled to attend next week.
== END 2024-11-29 23:59 ==
LOC: BHIOP 08:00
PROVIDERS: PCP Internal Medicine; Referring Provider Psychiatry & Neurology Psychiatry; Visit Provider Psychiatry & Neurology Psychiatry
DX: F39 Unspecified mood [affective] disorder (principal); F41.1 Generalized anxiety disorder; F60.3 Borderline personality disorder; F12.91 Cannabis use, unspecified, in remission
CPT/HCPCS: S9480; 90837

== ENCOUNTER → 2025-05-09 | Outpatient (CLI) | payer MEDICAID, SELFPAY ==
--- NOTE | 2025-05-09 14:01 | US_ITS ---
PROCEDURE: BREAST LIMITED UNILATERAL 05/09/2025 REASON FOR EXAM: F, Age 34 y/o , RIGHT BREAST LUMP COMPARISON: Prior mammogram done earlier in the day. TECHNIQUE: BREAST LIMITED UNILATERAL. The upper-outer quadrant of the right breast was examined with ultrasound. FINDINGS: Dense fibroglandular tissue. No sonographic abnormality is seen. US/Breast Limited Unilateral IMPRESSION: Dense fibroglandular tissue. No sonographic abnormality is seen. BI-RADS 1: NEGATIVE RECOMMENDATION: Routine annual follow-up in 1 Year Reading Location: [id number]
--- NOTE | 2025-05-09 14:01 | BI_ITS ---
EXAM: DIAG MAMM W/CAD, BILAT 05/09/2025 CLINICAL HISTORY: F, Age 34 y/o , RIGHT BREAST LUMP TECHNIQUE: DIAG MAMM W/CAD, BILAT. COMPARISON: Baseline examination. FINDINGS: TISSUE DENSITY: The breasts are extremely dense, which lowers the sensitivity of mammography. Bilateral Breast Mammographic Findings: Asymmetry of breast density were more breast density is seen in the right breast as compared to the left side. This corresponds to the palpable abnormality. Sonographic correlation recommended. No cluster of microcalcification is seen. BI/DIAG MAMM W/CAD, BILAT IMPRESSION: Asymmetrical fullness of the right breast as compared to the left side. This c orresponds with the patient's palpable abnormality. Sonographic correlation recommended. OVERALL FINAL ASSESSMENT BI-RADS 0: INCOMPLETE - NEED ADDITIONAL IMAGING EVALUATION. RECOMMENDATION: Ultrasound Recommended A letter with findings and recommendations will be mailed to the patient. Reading Location: [id number]
== END | disposition home or self-care (01) ==
LOC: OPBI 13:59
PROVIDERS: PCP Internal Medicine; Referring Provider Nurse Practitioner Family; Visit Provider Nurse Practitioner Family
DX: N63.11 Unspecified lump in the right breast, upper outer quadrant (principal)
CPT/HCPCS: 77062; 76642; 77066; G0279